=== PATIENT | male | born 1945 | race Caucasian/White ===

== ENCOUNTER → 2016-09-29 | Outpatient (REF) | payer MEDICARE, BC ==
[~2016-09-29] MED LIST: /ALLEGDTA; /ESCI10TA; /ESCI10TA PO; /ONDA4TA; /TAMS4CA; ACET50TA PO; ALLE24TA8 PO; ANTI25TA; ATROVENT0.02%; BABY81CH; CARV3.12 PO; CATA0.1T; CELE40TA PO; CHLO25TA3 PO; CLON0.1T PO; DEPA250T2; DIAZ5TAB; DIFL200T; DIOV80TA; LISI5TAB; LISI5TAB PO; METRCRM TOP; METROCREAM; MONT10TA2 PO; NAPR500T81; NASONEX; NOVOLOG100 MG/ML; OMEP20CA3 PO; PREDPOW10; PREV30TA; PROV90AE; SING10TA31; SODIUM CHLORIDE 0.9%; SYMB80AE; SYMB80INH INH; ULTR50TA PO; ULTRTA; VENTAER IN; VICO5TAB; XOPE1.252; [UNRECOGNIZED DRUG - OTHER]
== END ==
LOC: M SFHCCLAY 16:34
PROVIDERS: ATTEND Family Medicine
DX: K52.9 Noninfective gastroenteritis and colitis, unspecified (principal); N52.9 Male erectile dysfunction, unspecified; Z11.59 Encounter for screening for other viral diseases
CPT/HCPCS: 36415; 87507; G0463

== ENCOUNTER → 2016-09-30 | Outpatient (REF) | payer MEDICARE, BC ==
[2016-09-30 19:09] LABS: BASO % 0.5 % (0.0-1.0); EOS # 0.3 K/mm3 (0.0-0.50); EOS % 6.1 % (0.0-3.0); LARGE UNSTAINED CELL # 0.1 K/mm3 (0.0-0.4); LARGE UNSTAINED CELL % 2.2 % (0.0-4.0); LYMPH # 1.4 K/mm3 (1.5-4.5); LYMPH % 25.5 % (24.0-44.0); MEAN CORPUSCULAR HEMOGLOBIN 31.3 pg (27.0-33.0); MEAN CORPUSCULAR HGB CONC 33.5 g/dl (32.0-36.5); MEAN CORPUSCULAR VOLUME 93.5 fl (80.0-96.0); MONO # 0.4 K/mm3 (0.0-0.8); MONO % 7.8 % (0.0-5.0); PLATELET COUNT, AUTOMATED 241 k/mm3 (150-450); RED CELL DISTRIBUTION WIDTH 13.1 % (11.5-14.5); WHITE BLOOD COUNT 5.2 K/mm3 (4.0-10.0)
[2016-10-01 10:31] LABS: HEP C VIRUS AB SCREEN MEDICARE 0.2 INDEX (<0.8)
== END ==
LOC: M SFHCCLAY 10:20
PROVIDERS: ATTEND Family Medicine
DX: K52.9 Noninfective gastroenteritis and colitis, unspecified (principal); Z11.4 Encounter for screening for human immunodeficiency virus [HIV]; N52.9 Male erectile dysfunction, unspecified; Z11.59 Encounter for screening for other viral diseases; Z79.899 Other long term (current) drug therapy
CPT/HCPCS: 84403; 84443; 85025; 87899; G0472

== ENCOUNTER → 2016-10-19 | Outpatient (REF) | payer MEDICARE, BC ==
[2016-10-23 14:14] LABS: O+P EXAM Final report (.)
== END ==
LOC: M SFHCCLAY 11:37
PROVIDERS: ATTEND Family Medicine
DX: A09 Infectious gastroenteritis and colitis, unspecified (principal)

== ENCOUNTER → 2017-01-10 | Outpatient (REF) | payer MEDICARE, BC ==
[2017-01-10 12:32] LABS: ALBUMIN 3.4 GM/DL (3.2-5.2); BILIRUBIN,DIRECT 0.2 MG/DL (0.0-0.2); BILIRUBIN,TOTAL 0.3 MG/DL (0.2-1.0); TOTAL PROTEIN 6.8 GM/DL (6.4-8.2)
== END ==
LOC: M LABDRAWC 11:14
PROVIDERS: ATTEND Nurse Practitioner Family
DX: E78.2 Mixed hyperlipidemia (principal)

== ENCOUNTER → 2017-09-13 | Outpatient (REF) | payer MEDICARE, BC ==
[2017-09-13 23:42] LABS: ALBUMIN 3.6 GM/DL (3.2-5.2); ANION GAP 6 MEQ/L (8-16); BLOOD UREA NITROGEN 30 MG/DL (7-18); CALCIUM LEVEL 8.7 MG/DL (8.8-10.2); CARBON DIOXIDE LEVEL 29 MEQ/L (21-32); CHLORIDE LEVEL 107 MEQ/L (98-107); CREATININE FOR GFR 0.81 MG/DL (0.70-1.30); GLOMERULAR FILTRATION RATE > 60.0 (>42); GLUCOSE, FASTING 93 MG/DL (70-100); PHOSPHORUS LEVEL 2.7 MG/DL (2.5-4.9); POTASSIUM SERUM 3.6 MEQ/L (3.5-5.1); SODIUM LEVEL 142 MEQ/L (136-145)
== END ==
LOC: M LABDRAWC 18:26
DX: I11.9 Hypertensive heart disease without heart failure (principal)
CPT/HCPCS: 80069

== ENCOUNTER → 2017-10-05 | Outpatient (REF) | payer MEDICARE, BC | LOC: M LAB REF 16:45 | DX: R19.7 Diarrhea, unspecified (principal) | CPT/HCPCS: 82705 ==

== ENCOUNTER → 2017-10-20 | Outpatient (REF) | payer MEDICARE, BC ==
[2017-10-21 12:56] LABS: APPEARANCE, URINE TURBID (CLEAR); BACTERIA, URINE AUTO NEGATIVE (NEGATIVE); BILIRUBIN, URINE AUTO NEGATIVE (NEGATIVE); BLOOD, URINE BLOOD NEGATIVE (NEGATIVE); COLOR, URINE AMBER (YELLOW); GLUCOSE, URINE (UA) AUTO 1+ mg/dL (NEGATIVE); KETONE, URINE AUTO NEGATIVE (NEGATIVE); LEUKOCYTE ESTERASE, URINE AUTO TRACE (NEGATIVE); MUCUS, URINE SMALL (NEGATIVE); NITRITE, URINE AUTO NEGATIVE (NEGATIVE); PROTEIN, URINE AUTO NEGATIVE (NEGATIVE); RBC, URINE AUTO 0 /HPF (0-3); SPECIFIC GRAVITY URINE AUTO 1.029 (1.002-1.035); SQUAMOUS EPITHELIAL CELL UR AU 0 /HPF (0-6); UROBILINOGEN, URINE AUTO 0.2 mg/dL (0.0-2.0); WBC, URINE AUTO 0 /HPF (0-3)
== END ==
LOC: M SFHCCLAY 11:53
DX: R35.1 Nocturia (principal)
CPT/HCPCS: 81001

== ENCOUNTER → 2017-11-28 | Outpatient (CLI) | payer MEDICARE, BC | LOC: M CLY 14:47 | DX: M19.011 Primary osteoarthritis, right shoulder (principal); M75.81 Other shoulder lesions, right shoulder | CPT/HCPCS: 73030; G0463 ==

== ENCOUNTER → 2017-11-29 | Outpatient (REF) | payer MEDICARE, BC ==
[2017-11-29 12:11] LABS: BASO % 0.4 % (0.0-1.0); EOS # 0.4 10^3/uL (0.0-0.50); EOS % 6.6 % (0.0-3.0); HEMOGLOBIN 12.3 g/dl (13.5-17.5); IMMATURE GRANULOCYTE % 0.2 % (0-3.0); LYMPH # 1.6 10^3/uL (1.5-4.5); LYMPH % 27.7 % (24.0-44.0); MEAN CORPUSCULAR HGB CONC 33.2 g/dl (32.0-36.5); MEAN CORPUSCULAR VOLUME 93.2 fl (80.0-96.0); MONO # 0.8 10^3/uL (0.0-0.8); NEUTROPHILS # 2.9 10^3/uL (1.8-7.7); NEUTROPHILS % 51.1 % (36.0-66.0); PLATELET COUNT, AUTOMATED 192 10^3/uL (150-450); RED BLOOD COUNT 3.97 10^6/uL (4.30-6.10); RED CELL DISTRIBUTION WIDTH 13.2 % (11.5-14.5); WHITE BLOOD COUNT 5.6 10^3/uL (4.0-10.0)
[2017-11-29 12:31] LABS: ALBUMIN 3.3 GM/DL (3.2-5.2); ALBUMIN/GLOBULIN RATIO 0.94 (1.00-1.93); ALKALINE PHOSPHATASE 74 U/L (45-117); ALT/SGPT 29 U/L (12-78); ANION GAP 6 MEQ/L (8-16); AST/SGOT 22 U/L (7-37); BILIRUBIN,TOTAL 0.6 MG/DL (0.2-1.0); BLOOD UREA NITROGEN 26 MG/DL (7-18); CALCIUM LEVEL 8.6 MG/DL (8.8-10.2); CARBON DIOXIDE LEVEL 31 MEQ/L (21-32); CHLORIDE LEVEL 107 MEQ/L (98-107); CREATININE FOR GFR 0.84 MG/DL (0.70-1.30); GLOMERULAR FILTRATION RATE > 60.0 (>42); GLUCOSE, FASTING 95 MG/DL (70-100); POTASSIUM SERUM 3.7 MEQ/L (3.5-5.1); PSA SCREENING 0.36 NG/ML (< 4.0); SODIUM LEVEL 144 MEQ/L (136-145); TOTAL PROTEIN 6.8 GM/DL (6.4-8.2)
[2017-11-29 13:24] LABS: ESTIMATED AVERAGE GLUCOSE 108 MG/DL (60-110); HEMOGLOBIN A1c 5.4 %
== END ==
LOC: M SFHCCLAY 07:51
DX: Z12.5 Encounter for screening for malignant neoplasm of prostate (principal); K52.9 Noninfective gastroenteritis and colitis, unspecified
CPT/HCPCS: 84443

== ENCOUNTER → 2018-10-11 | Outpatient (REF) | payer MEDICARE, BC ==
[~2018-10-11] MED LIST changes: -/ESCI10TA; -/ESCI10TA PO; -/ONDA4TA; -/TAMS4CA; -ACET50TA PO; +FLOM0.4C39; +LEXA1TAB; +LEXA1TAB PO; +MAPA500T17 PO; +METR0.00 TOP; -METRCRM TOP; +ONDA-1
[2018-10-12 14:02] LABS: CLOSTRIDIUM DIFFICILE PCR NEGATIVE (NEGATIVE)
== END ==
LOC: M LAB REF 11:33
PROVIDERS: ATTEND Specialist
DX: R19.7 Diarrhea, unspecified (principal); K59.2 Neurogenic bowel, not elsewhere classified; R10.9 Unspecified abdominal pain; R14.1 Gas pain

== ENCOUNTER → 2018-10-17 | Outpatient (REF) | payer MEDICARE, BC ==
[2018-10-17 11:35] LABS: BASO # 0.1 10^3/uL (0.0-0.2); BASO % 0.8 % (0.0-1.0); EOS # 0.5 10^3/uL (0.0-0.50); EOS % 7.4 % (0.0-3.0); HEMATOCRIT 37.7 % (42.0-52.0); HEMOGLOBIN 12.7 g/dl (13.5-17.5); LYMPH # 1.9 10^3/uL (1.5-4.5); LYMPH % 30.7 % (24.0-44.0); MEAN CORPUSCULAR HEMOGLOBIN 32.1 pg (27.0-33.0); MEAN CORPUSCULAR HGB CONC 33.7 g/dl (32.0-36.5); MEAN CORPUSCULAR VOLUME 95.2 fl (80.0-96.0); MONO # 0.9 10^3/uL (0.0-0.8); MONO % 15.2 % (0.0-5.0); NEUTROPHILS # 2.8 10^3/uL (1.8-7.7); NEUTROPHILS % 45.6 % (36.0-66.0); PLATELET COUNT, AUTOMATED 205 10^3/uL (150-450); RED BLOOD COUNT 3.96 10^6/uL (4.30-6.10); WHITE BLOOD COUNT 6.2 10^3/uL (4.0-10.0)
[2018-10-17 11:45] LABS: ALT/SGPT 27 U/L (12-78); BILIRUBIN,TOTAL 0.3 MG/DL (0.2-1.0); BLOOD UREA NITROGEN 26 MG/DL (7-18); CALCIUM LEVEL 8.7 MG/DL (8.8-10.2); CARBON DIOXIDE LEVEL 33 MEQ/L (21-32); CHLORIDE LEVEL 102 MEQ/L (98-107); CHOLESTEROL LEVEL 135 MG/DL (<200); CREATININE FOR GFR 0.88 MG/DL (0.70-1.30); GLOMERULAR FILTRATION RATE > 60.0 (>42); GLUCOSE, FASTING 90 MG/DL (70-100); POTASSIUM SERUM 3.6 MEQ/L (3.5-5.1); SODIUM LEVEL 140 MEQ/L (136-145); TRIGLYCERIDES LEVEL 76 MG/DL (<150)
[2018-10-17 11:46] LABS: ALBUMIN 3.5 GM/DL (3.2-5.2); CHOLESTEROL RISK RATIO 2.109 (<5); HDL CHOLESTEROL 64 MG/DL (>40); LDL CHOLESTEROL 56 MG/DL (<100); NON-HDL-C 71 MG/DL; TOTAL PROTEIN 7.1 GM/DL (6.4-8.2)
== END ==
LOC: M LABDRAWC 11:12
PROVIDERS: ATTEND Physician Assistant
DX: I11.9 Hypertensive heart disease without heart failure (principal)

== ENCOUNTER → 2019-09-12 | Outpatient (REF) | payer MEDICARE, BC ==
[2019-09-12 16:46] LABS: ALBUMIN 3.7 GM/DL (3.2-5.2); ALT/SGPT 28 U/L (12-78); BILIRUBIN,TOTAL 0.7 MG/DL (0.2-1.0); BLOOD UREA NITROGEN 22 MG/DL (7-18); CARBON DIOXIDE LEVEL 30 MEQ/L (21-32); CHLORIDE LEVEL 105 MEQ/L (98-107); CHOLESTEROL LEVEL 151 MG/DL (<200); CHOLESTEROL RISK RATIO 1.911 (<5); CREATININE FOR GFR 0.96 MG/DL (0.70-1.30); GLOMERULAR FILTRATION RATE > 60.0 (>42); GLUCOSE, FASTING 83 MG/DL (70-100); HDL CHOLESTEROL 79 MG/DL (>40); LDL CHOLESTEROL 61 MG/DL (<100); MAGNESIUM LEVEL 2.1 MG/DL (1.8-2.4); NON-HDL-C 72 MG/DL; POTASSIUM SERUM 3.5 MEQ/L (3.5-5.1); SODIUM LEVEL 141 MEQ/L (136-145); TOTAL PROTEIN 7.5 GM/DL (6.4-8.2); TRIGLYCERIDES LEVEL 54 MG/DL (<150)
[2019-09-12 16:54] LABS: TOTAL 25(OH) VITAMIN D 38.2 NG/ML (30.0-100.0)
== END ==
LOC: M SFHCCLAY 11:24
PROVIDERS: ATTEND Family Medicine
DX: I10 Essential (primary) hypertension (principal); E78.00 Pure hypercholesterolemia, unspecified; R25.2 Cramp and spasm; Z12.5 Encounter for screening for malignant neoplasm of prostate; Z79.899 Other long term (current) drug therapy
CPT/HCPCS: 36415; 80053; 80061; 82306; 83735; G0103; G0463

== ENCOUNTER → 2019-10-26 | Outpatient (REF) | payer MEDICARE, BC ==
[2019-10-26 12:11] LABS: BLOOD UREA NITROGEN 21 MG/DL (7-18); CALCIUM LEVEL 8.9 MG/DL (8.8-10.2); CARBON DIOXIDE LEVEL 31 MEQ/L (21-32); CHLORIDE LEVEL 103 MEQ/L (98-107); CREATININE FOR GFR 0.77 MG/DL (0.70-1.30); GLOMERULAR FILTRATION RATE > 60.0 (>42); GLUCOSE, FASTING 85 MG/DL (70-100); POTASSIUM SERUM 3.5 MEQ/L (3.5-5.1); SODIUM LEVEL 139 MEQ/L (136-145)
== END ==
LOC: M LABDRAWC 11:22
PROVIDERS: ATTEND Physician Assistant
DX: I11.9 Hypertensive heart disease without heart failure (principal)

== ENCOUNTER → 2020-02-27 | Outpatient (REF) | payer MEDICARE, BC ==
[2020-02-28 11:51] LABS: BLOOD UREA NITROGEN 27 MG/DL (7-18); CALCIUM LEVEL 9.2 MG/DL (8.8-10.2); CARBON DIOXIDE LEVEL 31 MEQ/L (21-32); CHLORIDE LEVEL 104 MEQ/L (98-107); CREATININE FOR GFR 1.07 MG/DL (0.70-1.30); GLOMERULAR FILTRATION RATE > 60.0 (>42); GLUCOSE, FASTING 59 MG/DL (70-100); POTASSIUM SERUM 4.4 MEQ/L (3.5-5.1); SODIUM LEVEL 141 MEQ/L (136-145)
== END ==
LOC: M SFHCCLAY 14:41
PROVIDERS: ATTEND Family Medicine
DX: I11.9 Hypertensive heart disease without heart failure (principal); R25.2 Cramp and spasm; Z23 Encounter for immunization
CPT/HCPCS: 80048; 90682; G0008; G0463

== ENCOUNTER → 2020-09-04 | Outpatient (REF) | payer MEDICARE, BC ==
[2020-09-04 13:16] LABS: BLOOD UREA NITROGEN 20 MG/DL (7-18); CALCIUM LEVEL 9.2 MG/DL (8.8-10.2); CARBON DIOXIDE LEVEL 33 MEQ/L (21-32); CHLORIDE LEVEL 104 MEQ/L (98-107); CHOLESTEROL LEVEL 152 MG/DL (<200); CHOLESTEROL RISK RATIO 1.948 (<5); CREATININE FOR GFR 0.79 MG/DL (0.70-1.30); GLOMERULAR FILTRATION RATE > 60.0 (>42); GLUCOSE, FASTING 90 MG/DL (70-100); HDL CHOLESTEROL 78 MG/DL (>40); LDL CHOLESTEROL 65 MG/DL (<100); NON-HDL-C 74 MG/DL; POTASSIUM SERUM 3.7 MEQ/L (3.5-5.1); SODIUM LEVEL 141 MEQ/L (136-145); TRIGLYCERIDES LEVEL 44 MG/DL (<150)
== END ==
LOC: M SFHCCLAY 09:27
PROVIDERS: ATTEND Family Medicine
DX: E78.00 Pure hypercholesterolemia, unspecified (principal); I11.9 Hypertensive heart disease without heart failure; E16.2 Hypoglycemia, unspecified

== ENCOUNTER → 2020-10-28 | Outpatient (REF) | payer MEDICARE, BC ==
[2020-10-28 16:49] LABS: BASO % 0.5 % (0.0-1.0); EOS # 0.3 10^3/uL (0.0-0.5); EOS % 3.7 % (0.0-3.0); HEMOGLOBIN 12.4 g/dl (13.5-17.5); LYMPH # 1.8 10^3/uL (1.5-5.0); LYMPH % 21.3 % (24.0-44.0); MEAN CORPUSCULAR HEMOGLOBIN 30.4 pg (27.0-33.0); MEAN CORPUSCULAR HGB CONC 32.6 g/dl (32.0-36.5); MEAN CORPUSCULAR VOLUME 93.1 fl (80.0-96.0); MONO % 11.6 % (2.0-8.0); NEUTROPHILS # 5.1 10^3/uL (1.5-8.5); NEUTROPHILS % 62.5 % (36.0-66.0); PLATELET COUNT, AUTOMATED 211 10^3/uL (150-450); RED BLOOD COUNT 4.08 10^6/uL (4.30-6.10); WHITE BLOOD COUNT 8.2 10^3/uL (4.0-10.0)
[2020-10-28 16:56] LABS: BLOOD UREA NITROGEN 25 MG/DL (7-18); CALCIUM LEVEL 9.1 MG/DL (8.8-10.2); CARBON DIOXIDE LEVEL 30 MEQ/L (21-32); CHLORIDE LEVEL 105 MEQ/L (98-107); CREATININE FOR GFR 0.88 MG/DL (0.70-1.30); GLOMERULAR FILTRATION RATE > 60.0 (>42); GLUCOSE, FASTING 94 MG/DL (70-100); POTASSIUM SERUM 3.8 MEQ/L (3.5-5.1); SODIUM LEVEL 142 MEQ/L (136-145)
== END ==
LOC: M LABDRAWC 15:53
PROVIDERS: ATTEND Physician Assistant
DX: R53.83 Other fatigue (principal)

== ENCOUNTER 2020-12-10 17:38 | Outpatient (CLI) | payer MEDICARE, BC ==
[~2020-12-10] VITALS: Ht 154.9 cm; Wt 68.5 kg
[~2020-12-10 17:38] MED LIST changes: +ALBUTEROL 90 MCG/ACT 8GM HFA INHALER INH PRN; +ALBUTEROL SULFATE 2.5 MG/0.5 ML INH NEB SOLN INH PRN; +EPINEPHrine INJ 1 MG/ML 1ML AMP IM PRN; +NS 1,000 ML IV SCH; +diphenhydrAMINE 50MG/ML VIAL (J1200) IV PRN; +methylPREDNISolone 125MG 2ML VIAL IV PRN
[2020-12-10 18:27] VITALS: BP 126/74
[2020-12-10 19:39] VITALS: BP 107/82
[2020-12-10] MEDS ORDERED: CASIRIVIMAB/IMDEVIMAB 1,200 MG in NS 250 ML IV ONE (20:00)
[2020-12-10 20:05] VITALS: BP 106/60
[2020-12-10 21:27] VITALS: BP 105/59
== END 2020-12-10 21:27 | disposition home or self-care (01) ==
LOC: M OPCLI4 17:38 → M 4MAIN 17:43 → M OPCLI4 21:27
PROVIDERS: ATTEND Physician Assistant
DX: U07.1 COVID-19 (principal)

== ENCOUNTER → 2020-12-10 | Outpatient (CLI) | payer MEDICARE, BC ==
--- NOTE | 2020-12-10 15:24 | REP ---
INDICATION: FEVER, COUGH AND WEAKNESS COMPARISON: 02/10/2017 TECHNIQUE: PA and lateral. FINDINGS: Mediastinum demonstrates normal cardiac silhouette and stable severe scoliosis. Lung jackson demonstrate chronic changes similar to prior examination. No obvious acute consolidation, effusion, or pneumothorax. IMPRESSION: Chronic stable changes. No obvious acute consolidation or effusion. <Electronically signed by Jerod Thomas > 12/10/20 [id number]
== END ==
LOC: M CLY 15:06
PROVIDERS: ATTEND Physician Assistant
DX: R50.9 Fever, unspecified (principal)
CPT/HCPCS: 71046; 87426; G0463; M0243

== ENCOUNTER → 2021-03-23 | Outpatient (CLI) | payer MEDICARE, BC ==
[~2021-03-23] MED LIST changes: -ALBUTEROL 90 MCG/ACT 8GM HFA INHALER INH PRN; -ALBUTEROL SULFATE 2.5 MG/0.5 ML INH NEB SOLN INH PRN; -EPINEPHrine INJ 1 MG/ML 1ML AMP IM PRN; -NS 1,000 ML IV SCH; -diphenhydrAMINE 50MG/ML VIAL (J1200) IV PRN; -methylPREDNISolone 125MG 2ML VIAL IV PRN
--- NOTE | 2021-03-23 09:51 | REP ---
INDICATION: M25.512 LEFT SHOULDER PAIN. COMPARISON: None. TECHNIQUE: Three images of the left shoulder were obtained. FINDINGS: There is mild arthritis of the glenohumeral joint. There is mild arthritis of the acromioclavicular joint. There is no evidence of fracture or dislocation. The periarticular soft tissues are unremarkable. The visualized portion of the left lung is unremarkable. IMPRESSION: 1. 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 2. No evidence of fracture or dislocation. <Electronically signed by Jose Pineda > 03/23/21 [id number]
--- NOTE | 2021-03-23 09:52 | REP ---
INDICATION: M54.50 LEFT LOW BACK PAIN. COMPARISON: 03/31/2011. TECHNIQUE: Three AP and lateral views lumbosacral spine. FINDINGS: There is no radiographic evidence of acute fracture. There is significant left lumbar scoliosis. This is similar to the prior exam. Diffuse spurring of the vertebral bodies has mildly increased. There is diffuse sclerosis and spurring at the posterior facet joints again noted. IMPRESSION: Left lumbar scoliosis with no radiographic evidence of acute fracture. Mild progression of diffuse degenerative changes. <Electronically signed by Luan Simpson > 03/23/21 0919
== END ==
LOC: M CLY 08:57
PROVIDERS: ATTEND Family Medicine
DX: M19.012 Primary osteoarthritis, left shoulder (principal); M41.26 Other idiopathic scoliosis, lumbar region; M54.50 Low back pain, unspecified; M25.512 Pain in left shoulder
CPT/HCPCS: 72100; 73030; G0463

== ENCOUNTER → 2021-05-29 | Outpatient (CLI) | payer MEDICARE, BC | LOC: M CLY 08:42 | PROVIDERS: ATTEND Physician Assistant | DX: R05.9 Cough, unspecified (principal) ==

== ENCOUNTER → 2021-08-13 | Outpatient (CLI) | payer MEDICARE, BC | LOC: M RAD 10:45 | PROVIDERS: ATTEND Family Medicine | DX: R05.9 Cough, unspecified (principal) ==

== ENCOUNTER → 2021-09-22 | Outpatient (CLI) | payer MEDICARE, BC | LOC: M CLY 08:56 | PROVIDERS: ATTEND Family Medicine | DX: R05.3 Chronic cough (principal); R07.81 Pleurodynia ==

== ENCOUNTER → 2021-10-13 | Outpatient (CLI) | payer MEDICARE, BC | LOC: M PLAIMG 12:56 | PROVIDERS: ATTEND Pain Medicine Interventional Pain Medicine | DX: M48.061 Spinal stenosis, lumbar region without neurogenic claudication (principal) ==

== ENCOUNTER → 2021-10-21 | Outpatient (REF) | payer MEDICARE, BC ==
[2021-10-21 16:50] LABS: BLOOD UREA NITROGEN 23 MG/DL (7-18); CARBON DIOXIDE LEVEL 33 MEQ/L (21-32); CHLORIDE LEVEL 102 MEQ/L (98-107); CHOLESTEROL LEVEL 148 MG/DL (<200); CHOLESTEROL RISK RATIO 1.973 (<5); CREATININE FOR GFR 0.83 MG/DL (0.70-1.30); GLOMERULAR FILTRATION RATE > 60.0 (>42); GLUCOSE, FASTING 91 MG/DL (70-100); HDL CHOLESTEROL 75 MG/DL (>40); LDL CHOLESTEROL 65 MG/DL (<100); NON-HDL-C 73 MG/DL; POTASSIUM SERUM 3.8 MEQ/L (3.5-5.1); SODIUM LEVEL 137 MEQ/L (136-145); TRIGLYCERIDES LEVEL 39 MG/DL (<150)
== END ==
LOC: M SFHCCLAY 11:20
PROVIDERS: ATTEND Family Medicine
DX: I11.9 Hypertensive heart disease without heart failure (principal); E78.00 Pure hypercholesterolemia, unspecified

== ENCOUNTER → 2021-11-04 | Outpatient (REF) | payer MEDICARE, BC | LOC: M LAB REF 17:09 | PROVIDERS: ATTEND Internal Medicine Pulmonary Disease | DX: R05.9 Cough, unspecified (principal) ==

== ENCOUNTER → 2021-11-18 | Outpatient (REF) | payer MEDICARE, BC | LOC: M SFHCCLAY 11:42 | PROVIDERS: ATTEND Nurse Practitioner Family | DX: Z12.5 Encounter for screening for malignant neoplasm of prostate (principal) ==

== ENCOUNTER → 2021-12-15 | Outpatient (REF) | payer MEDICARE, BC | LOC: M SFHCCLAY 15:52 | PROVIDERS: ATTEND Nurse Practitioner Family | DX: R05.3 Chronic cough (principal) ==

== ENCOUNTER → 2022-01-12 | Outpatient (REF) | payer MEDICARE, BC ==
[2022-01-12 17:52] LABS: HEMATOCRIT 35.6 % (42.0-52.0); HEMOGLOBIN 11.8 g/dl (13.5-17.5); MEAN CORPUSCULAR HEMOGLOBIN 30.9 pg (27.0-33.0); MEAN CORPUSCULAR HGB CONC 33.1 g/dl (32.0-36.5); MEAN CORPUSCULAR VOLUME 93.2 fl (80.0-96.0); PLATELET COUNT, AUTOMATED 211 10^3/uL (150-450); RED BLOOD COUNT 3.82 10^6/uL (4.30-6.10); WHITE BLOOD COUNT 7.9 10^3/uL (4.0-10.0)
[2022-01-12 17:58] LABS: ALBUMIN 3.3 GM/DL (3.2-5.2); ALT/SGPT 40 U/L (12-78); BILIRUBIN,TOTAL 0.7 MG/DL (0.2-1.0); BLOOD UREA NITROGEN 28 MG/DL (7-18); CALCIUM LEVEL 8.8 MG/DL (8.8-10.2); CARBON DIOXIDE LEVEL 30 MEQ/L (21-32); CHLORIDE LEVEL 101 MEQ/L (98-107); CHOLESTEROL LEVEL 161 MG/DL (<200); CHOLESTEROL RISK RATIO 1.987 (<5); CREATININE FOR GFR 0.97 MG/DL (0.70-1.30); GLOMERULAR FILTRATION RATE > 60.0 (>42); GLUCOSE, FASTING 82 MG/DL (70-100); HDL CHOLESTEROL 81 MG/DL (>40); LDL CHOLESTEROL 65 MG/DL (<100); NON-HDL-C 80 MG/DL; POTASSIUM SERUM 3.4 MEQ/L (3.5-5.1); SODIUM LEVEL 137 MEQ/L (136-145); TOTAL PROTEIN 6.5 GM/DL (6.4-8.2); TRIGLYCERIDES LEVEL 73 MG/DL (<150)
== END ==
LOC: M SFHCCLAY 13:46
PROVIDERS: ATTEND Nurse Practitioner Family
DX: I82.441 Acute embolism and thrombosis of right tibial vein (principal); I11.9 Hypertensive heart disease without heart failure

== ENCOUNTER → 2022-01-21 | Outpatient (REF) | payer MEDICARE, BC | LOC: M SFHCCLAY 14:45 | PROVIDERS: ATTEND Physician Assistant | DX: Z53.9 Procedure and treatment not carried out, unspecified reason (principal) ==

== ENCOUNTER → 2022-01-25 | Outpatient (REF) | payer MEDICARE, BC ==
[2022-01-25 12:51] LABS: BASO % 0.4 % (0.0-1.0); EOS % 0.1 % (0.0-3.0); HEMATOCRIT 36.5 % (42.0-52.0); HEMOGLOBIN 12.2 g/dl (13.5-17.5); LYMPH # 1.6 10^3/uL (1.5-5.0); LYMPH % 19.6 % (24.0-44.0); MEAN CORPUSCULAR HEMOGLOBIN 30.7 pg (27.0-33.0); MEAN CORPUSCULAR HGB CONC 33.4 g/dl (32.0-36.5); MEAN CORPUSCULAR VOLUME 91.7 fl (80.0-96.0); MONO # 0.9 10^3/uL (0.0-0.8); MONO % 11.4 % (2.0-8.0); NEUTROPHILS # 5.3 10^3/uL (1.5-8.5); PLATELET COUNT, AUTOMATED 337 10^3/uL (150-450); RED BLOOD COUNT 3.98 10^6/uL (4.30-6.10); WHITE BLOOD COUNT 7.9 10^3/uL (4.0-10.0)
[2022-01-25 13:45] LABS: ALBUMIN 3.3 GM/DL (3.2-5.2); ALT/SGPT 28 U/L (12-78); BILIRUBIN,TOTAL 0.3 MG/DL (0.2-1.0); BLOOD UREA NITROGEN 24 MG/DL (7-18); CALCIUM LEVEL 9.4 MG/DL (8.8-10.2); CARBON DIOXIDE LEVEL 33 MEQ/L (21-32); CHLORIDE LEVEL 102 MEQ/L (98-107); CREATININE FOR GFR 0.87 MG/DL (0.70-1.30); GLOMERULAR FILTRATION RATE > 60.0 (>42); GLUCOSE, FASTING 85 MG/DL (70-100); POTASSIUM SERUM 3.5 MEQ/L (3.5-5.1); SODIUM LEVEL 139 MEQ/L (136-145); TOTAL PROTEIN 6.9 GM/DL (6.4-8.2)
[2022-01-25 13:51] LABS: ERYTHROCYTE SEDIMENTATION RATE 34 mm/hr (0-20)
[2022-01-29 23:07] LABS: ACETYLCHOLINE RCPTOR BINDING A < 0.03 nmol/L (0.00-0.24)
[2022-02-03 10:58] LABS: VOLTAGE-GATED POTASSIUM CHANNE 5 pmol/L (0-31)
== END ==
LOC: M SFHCCLAY 07:36
PROVIDERS: ATTEND Physician Assistant
DX: R26.9 Unspecified abnormalities of gait and mobility (principal); J20.9 Acute bronchitis, unspecified

== ENCOUNTER → 2022-02-15 | Outpatient (CLI) | payer MEDICARE, BC | LOC: M PLAIMG 13:20 | PROVIDERS: ATTEND Physician Assistant | DX: R91.8 Other nonspecific abnormal finding of lung field (principal); K44.9 Diaphragmatic hernia without obstruction or gangrene ==

== ENCOUNTER → 2022-03-04 | Outpatient (CLI) | payer MEDICARE, BC ==
[2022-03-04 18:26] LABS: BASO % 0.5 % (0.0-1.0); EOS # 0.5 10^3/uL (0.0-0.5); EOS % 5.3 % (0.0-3.0); HEMATOCRIT 37.8 % (42.0-52.0); HEMOGLOBIN 12.1 g/dl (13.5-17.5); LYMPH # 1.3 10^3/uL (1.5-5.0); LYMPH % 14.8 % (24.0-44.0); MEAN CORPUSCULAR HEMOGLOBIN 30.6 pg (27.0-33.0); MEAN CORPUSCULAR VOLUME 95.7 fl (80.0-96.0); MONO # 0.9 10^3/uL (0.0-0.8); NEUTROPHILS # 6.1 10^3/uL (1.5-8.5); NEUTROPHILS % 68.5 % (36.0-66.0); PLATELET COUNT, AUTOMATED 245 10^3/uL (150-450); RED BLOOD COUNT 3.95 10^6/uL (4.30-6.10); WHITE BLOOD COUNT 8.8 10^3/uL (4.0-10.0)
[2022-03-04 19:28] LABS: ALBUMIN 3.7 G/DL (3.2-5.2); ALT/SGPT 25 U/L (7.0-40); BILIRUBIN,TOTAL 0.7 MG/DL (0.3-1.2); BLOOD UREA NITROGEN 26 MG/DL (9-23); CALCIUM LEVEL 9.1 MG/DL (8.3-10.6); CARBON DIOXIDE LEVEL 32 MMOL/L (20-31); CHLORIDE LEVEL 101 MMOL/L (98-107); CREATININE FOR GFR 0.85 MG/DL (0.70-1.30); FREE T4 0.93 NG/DL (0.89-1.76); GLOMERULAR FILTRATION RATE > 60.0 (>42); GLUCOSE, FASTING 95 MG/DL (74-106); POTASSIUM SERUM 3.6 MMOL/L (3.5-5.1); RHEUMATOID FACTOR QUANT < 3.5 IU/ML (<14); SODIUM LEVEL 141 MMOL/L (136-145); TOTAL PROTEIN 6.8 G/DL (5.7-8.2); VITAMIN B12 LEVEL 621 PG/ML (211-911)
[2022-03-04 19:38] LABS: FOLATE > 24.00 NG/ML (>5.4)
[2022-03-04 20:14] LABS: ERYTHROCYTE SEDIMENTATION RATE 20 mm/hr (0-20)
== END ==
LOC: M PLALAB 11:48
PROVIDERS: ATTEND Psychiatry & Neurology Neurology
DX: E07.9 Disorder of thyroid, unspecified (principal); E53.8 Deficiency of other specified B group vitamins; Z11.3 Encounter for screening for infections with a predominantly sexual mode of transmission

== ENCOUNTER → 2022-05-11 | Outpatient (CLI) | payer MEDICARE, BC ==
[2022-05-11 13:12] LABS: HEMATOCRIT 37.6 % (42.0-52.0); HEMOGLOBIN 12.4 g/dl (13.5-17.5); MEAN CORPUSCULAR HEMOGLOBIN 30.9 pg (27.0-33.0); MEAN CORPUSCULAR VOLUME 93.8 fl (80.0-96.0); PLATELET COUNT, AUTOMATED 236 10^3/uL (150-450); RED BLOOD COUNT 4.01 10^6/uL (4.30-6.10); WHITE BLOOD COUNT 9.4 10^3/uL (4.0-10.0)
[2022-05-11 13:48] LABS: THYROID STIMULATING HORMONE 1.787 uIU/ML (0.55-4.78)
[2022-05-11 13:49] LABS: FREE T4 1.19 NG/DL (0.89-1.76)
[2022-05-11 13:50] LABS: ALBUMIN 3.7 G/DL (3.2-5.2); ALKALINE PHOSPHATASE 93 U/L (46-116); ALT/SGPT 24 U/L (7.0-40); AST/SGOT 23 U/L (<34); BILIRUBIN,TOTAL 0.5 MG/DL (0.3-1.2); BLOOD UREA NITROGEN 26 MG/DL (9-23); CALCIUM LEVEL 9.3 MG/DL (8.3-10.6); CARBON DIOXIDE LEVEL 31 MMOL/L (20-31); CHLORIDE LEVEL 102 MMOL/L (98-107); CREATININE FOR GFR 0.91 MG/DL (0.70-1.30); GLOMERULAR FILTRATION RATE > 60.0 (>42); GLUCOSE, FASTING 100 MG/DL (74-106); POTASSIUM SERUM 3.6 MMOL/L (3.5-5.1); SODIUM LEVEL 140 MMOL/L (136-145); TOTAL PROTEIN 6.8 G/DL (5.7-8.2)
== END ==
LOC: M PLALAB 10:37
PROVIDERS: ATTEND Internal Medicine Hematology
DX: I82.531 Chronic embolism and thrombosis of right popliteal vein (principal); G11.2 Late-onset cerebellar ataxia; R05.9 Cough, unspecified; G95.20 Unspecified cord compression; I82.411 Acute embolism and thrombosis of right femoral vein; E03.9 Hypothyroidism, unspecified

== ENCOUNTER → 2022-06-09 | Outpatient (REF) | payer MEDICARE, BC | LOC: M SFHCPLAZ 09:52 | PROVIDERS: ATTEND Internal Medicine Hematology | DX: I82.531 Chronic embolism and thrombosis of right popliteal vein (principal) ==

== ENCOUNTER → 2022-08-13 | Outpatient (CLI) | payer MEDICARE, BC | LOC: M CLY 10:27 | PROVIDERS: ATTEND Physician Assistant | DX: J84.9 Interstitial pulmonary disease, unspecified (principal); R07.81 Pleurodynia; R10.11 Right upper quadrant pain ==

== ENCOUNTER → 2022-08-13 | Outpatient (REF) | payer MEDICARE, BC ==
[2022-08-13 17:22] LABS: INR 1.03; PROTHROMBIN TIME 13.7 SECONDS (12.5-14.5)
[2022-08-13 17:58] LABS: BASO % 0.3 % (0.0-1.0); EOS # 0.3 10^3/uL (0.0-0.5); EOS % 2.9 % (0.0-3.0); HEMATOCRIT 36.8 % (42.0-52.0); LYMPH # 1.5 10^3/uL (1.5-5.0); LYMPH % 16.2 % (24.0-44.0); MEAN CORPUSCULAR HEMOGLOBIN 30.4 pg (27.0-33.0); MEAN CORPUSCULAR HGB CONC 32.6 g/dl (32.0-36.5); MEAN CORPUSCULAR VOLUME 93.2 fl (80.0-96.0); MONO # 1.1 10^3/uL (0.0-0.8); MONO % 11.6 % (2.0-8.0); NEUTROPHILS # 6.5 10^3/uL (1.5-8.5); NEUTROPHILS % 68.6 % (36.0-66.0); PLATELET COUNT, AUTOMATED 258 10^3/uL (150-450); RED BLOOD COUNT 3.95 10^6/uL (4.30-6.10); WHITE BLOOD COUNT 9.5 10^3/uL (4.0-10.0)
[2022-08-13 18:03] LABS: LIPASE 21 U/L (12-53)
[2022-08-13 18:06] LABS: ALBUMIN 3.6 G/DL (3.2-5.2); ALKALINE PHOSPHATASE 103 U/L (46-116); ALT/SGPT 28 U/L (7.0-40); AMYLASE 105 U/L (30-118); AST/SGOT 20 U/L (<34); BILIRUBIN,TOTAL 0.5 MG/DL (0.3-1.2); BLOOD UREA NITROGEN 25 MG/DL (9-23); CALCIUM LEVEL 8.8 MG/DL (8.3-10.6); CARBON DIOXIDE LEVEL 30 MMOL/L (20-31); CHLORIDE LEVEL 104 MMOL/L (98-107); CREATININE FOR GFR 0.98 MG/DL (0.70-1.30); GLOMERULAR FILTRATION RATE > 60.0 (>42); GLUCOSE, FASTING 99 MG/DL (74-106); POTASSIUM SERUM 3.8 MMOL/L (3.5-5.1); SODIUM LEVEL 140 MMOL/L (136-145); TOTAL PROTEIN 6.8 G/DL (5.7-8.2)
== END ==
LOC: M SFHCCLAY 10:56
PROVIDERS: ATTEND Physician Assistant
DX: R10.11 Right upper quadrant pain (principal); R23.3 Spontaneous ecchymoses

== ENCOUNTER → 2022-11-23 | Outpatient (REF) | payer MEDICARE, BC | LOC: M SFHCCLAY 11:34 | PROVIDERS: ATTEND Nurse Practitioner Family | DX: R35.0 Frequency of micturition (principal); R25.2 Cramp and spasm | CPT/HCPCS: 83735; G0103 ==

== ENCOUNTER → 2023-02-25 | Outpatient (REF) | payer MEDICARE, BC ==
[2023-02-25 19:06] LABS: BLOOD UREA NITROGEN 28 MG/DL (9-23); CALCIUM LEVEL 9.2 MG/DL (8.3-10.6); CARBON DIOXIDE LEVEL 31 MMOL/L (20-31); CHLORIDE LEVEL 100 MMOL/L (98-107); CREATININE FOR GFR 0.99 MG/DL (0.70-1.30); GLOMERULAR FILTRATION RATE > 60.0 (>42); GLUCOSE, FASTING 97 MG/DL (74-106); POTASSIUM SERUM 3.8 MMOL/L (3.5-5.1); SODIUM LEVEL 140 MMOL/L (136-145)
== END ==
LOC: M LABDRAWC 16:58
PROVIDERS: ATTEND Ophthalmology
DX: H04.223 Epiphora due to insufficient drainage, bilateral (principal)

== ENCOUNTER → 2023-03-01 | Outpatient (REF) | payer MEDICARE, BC ==
[2023-03-01 17:31] LABS: BASO % 0.5 % (0.0-1.0); EOS # 0.3 10^3/uL (0.0-0.5); EOS % 3.9 % (0.0-3.0); HEMATOCRIT 38.3 % (42.0-52.0); HEMOGLOBIN 12.7 g/dl (13.5-17.5); LYMPH # 1.4 10^3/uL (1.5-5.0); LYMPH % 15.9 % (24.0-44.0); MEAN CORPUSCULAR HEMOGLOBIN 30.8 pg (27.0-33.0); MEAN CORPUSCULAR HGB CONC 33.2 g/dl (32.0-36.5); MONO # 1.1 10^3/uL (0.0-0.8); MONO % 12.4 % (2.0-8.0); NEUTROPHILS # 5.9 10^3/uL (1.5-8.5); NEUTROPHILS % 66.8 % (36.0-66.0); PLATELET COUNT, AUTOMATED 229 10^3/uL (150-450); RED BLOOD COUNT 4.12 10^6/uL (4.30-6.10); WHITE BLOOD COUNT 8.8 10^3/uL (4.0-10.0)
[2023-03-01 18:20] LABS: ALBUMIN 3.7 G/DL (3.2-5.2); ALKALINE PHOSPHATASE 102 U/L (46-116); ALT/SGPT 29 U/L (7.0-40); AST/SGOT 23 U/L (<34); BILIRUBIN,TOTAL 0.7 MG/DL (0.3-1.2); BLOOD UREA NITROGEN 29 MG/DL (9-23); CALCIUM LEVEL 9.4 MG/DL (8.3-10.6); CARBON DIOXIDE LEVEL 32 MMOL/L (20-31); CHLORIDE LEVEL 101 MMOL/L (98-107); CHOLESTEROL LEVEL 151 MG/DL (<200); CHOLESTEROL RISK RATIO 2.15 (<5); CREATININE FOR GFR 0.89 MG/DL (0.70-1.30); FREE T4 1.22 NG/DL (0.89-1.76); GLOMERULAR FILTRATION RATE > 60.0 (>42); GLUCOSE, FASTING 100 MG/DL (74-106); HDL CHOLESTEROL 70.2 MG/DL (>40); LDL CHOLESTEROL 68.8 MG/DL (<100); NON-HDL-C 80.8 MG/DL; POTASSIUM SERUM 3.8 MMOL/L (3.5-5.1); SODIUM LEVEL 140 MMOL/L (136-145); THYROID STIMULATING HORMONE 2.332 uIU/ML (0.55-4.78); TOTAL PROTEIN 7.1 G/DL (5.7-8.2); TRIGLYCERIDES LEVEL 60 MG/DL (<150)
== END ==
LOC: M SFHCCLAY 11:19
PROVIDERS: ATTEND Nurse Practitioner Family
DX: J84.10 Pulmonary fibrosis, unspecified (principal); E03.9 Hypothyroidism, unspecified; R26.89 Other abnormalities of gait and mobility; G95.20 Unspecified cord compression; I11.9 Hypertensive heart disease without heart failure; E78.00 Pure hypercholesterolemia, unspecified; K21.9 Gastro-esophageal reflux disease without esophagitis; J45.20 Mild intermittent asthma, uncomplicated

== ENCOUNTER → 2023-05-19 | Outpatient (REF) | payer MEDICARE, BC | LOC: M LAB REF 17:09 | PROVIDERS: ATTEND Internal Medicine Pulmonary Disease | DX: J47.9 Bronchiectasis, uncomplicated (principal) ==

== ENCOUNTER → 2023-06-02 | Outpatient (REF) | payer MEDICARE, BC ==
[2023-06-02 13:09] LABS: BASO % 0.3 % (0.0-1.0); EOS # 0.4 10^3/uL (0.0-0.5); EOS % 4.9 % (0.0-3.0); HEMATOCRIT 37.8 % (42.0-52.0); HEMOGLOBIN 12.6 g/dl (13.5-17.5); LYMPH # 1.8 10^3/uL (1.5-5.0); LYMPH % 20.6 % (24.0-44.0); MEAN CORPUSCULAR HEMOGLOBIN 31.1 pg (27.0-33.0); MEAN CORPUSCULAR HGB CONC 33.3 g/dl (32.0-36.5); MEAN CORPUSCULAR VOLUME 93.3 fl (80.0-96.0); MONO # 0.8 10^3/uL (0.0-0.8); MONO % 9.6 % (2.0-8.0); NEUTROPHILS # 5.6 10^3/uL (1.5-8.5); NEUTROPHILS % 64.5 % (36.0-66.0); PLATELET COUNT, AUTOMATED 268 10^3/uL (150-450); RED BLOOD COUNT 4.05 10^6/uL (4.30-6.10); WHITE BLOOD COUNT 8.6 10^3/uL (4.0-10.0)
[2023-06-02 13:17] LABS: HEMOGLOBIN A1c 5.4 % (4.0-6.0)
[2023-06-02 13:38] LABS: ALBUMIN 3.6 G/DL (3.2-5.2); ALKALINE PHOSPHATASE 84 U/L (46-116); ALT/SGPT 31 U/L (7.0-40); AST/SGOT 25 U/L (<34); BILIRUBIN,TOTAL 0.5 MG/DL (0.3-1.2); BLOOD UREA NITROGEN 27 MG/DL (9-23); CALCIUM LEVEL 9.3 MG/DL (8.3-10.6); CARBON DIOXIDE LEVEL 34 MMOL/L (20-31); CHLORIDE LEVEL 103 MMOL/L (98-107); CHOLESTEROL LEVEL 146 MG/DL (<200); CHOLESTEROL RISK RATIO 2.54 (<5); CREATININE FOR GFR 0.97 MG/DL (0.70-1.30); GLOMERULAR FILTRATION RATE > 60.0 (>42); GLUCOSE, FASTING 100 MG/DL (74-106); HDL CHOLESTEROL 57.4 MG/DL (>40); IRON (FE) 68 UG/DL (65-175); LDL CHOLESTEROL 78.2 MG/DL (<100); NON-HDL-C 88.6 MG/DL; PERCENT SATURATION 25.8 % (19.7-50.0); POTASSIUM SERUM 3.8 MMOL/L (3.5-5.1); SODIUM LEVEL 142 MMOL/L (136-145); TOTAL IRON BINDING CAPACITY 264 UG/DL (250-425); TOTAL PROTEIN 6.9 G/DL (5.7-8.2); TRIGLYCERIDES LEVEL 52 MG/DL (<150)
[2023-06-02 13:40] LABS: FERRITIN 104.9 NG/ML (10.5-307.3); THYROID STIMULATING HORMONE 2.605 uIU/ML (0.55-4.78)
[2023-06-02 13:41] LABS: FREE T4 1.19 NG/DL (0.89-1.76)
== END ==
LOC: M SFHCCLAY 08:15
PROVIDERS: ATTEND Nurse Practitioner Family
DX: R53.82 Chronic fatigue, unspecified (principal); R73.09 Other abnormal glucose; E03.9 Hypothyroidism, unspecified; J84.10 Pulmonary fibrosis, unspecified; E78.00 Pure hypercholesterolemia, unspecified; D50.9 Iron deficiency anemia, unspecified

== ENCOUNTER → 2023-06-20 | Outpatient (CLI) | payer MEDICARE, BC ==
[~2023-06-20] MED LIST changes: +ALBU2.5V10; +ALBU8.5H INH; +ALIG4CAP PO; +AMLO1TAB25 PO; +ATOR1TAB19 PO; +B COCAP4 PO; +BUDE0.5S6; +BUDE10.2 INH; +CHLO125TA PO; +ECOT81TA5 PO; +FERR140T3 PO; +FEXO-112 PO; +FEXO-117 PO; +GABA-1171 PO; +GALZ25CA PO; +IPRA3SP; +LEVO50TA5 PO; +LEXA1TAB2 PO; +MAGN250T7 PO; +MELA10CA2 PO; +MONT10TA97 PO; +NIFE15CA PO; +OMEP40CA5 PO; +PATANOL; +POTA-151 PO; +SIME125T PO; +THERTAB52 PO; +VITA100093 PO; +VITA500C24 PO
== END ==
LOC: M RAD 11:13
PROVIDERS: ATTEND Internal Medicine Pulmonary Disease
DX: J47.9 Bronchiectasis, uncomplicated (principal); J84.9 Interstitial pulmonary disease, unspecified

== ENCOUNTER 2023-06-22 11:44 | Day surgery (SDC) | payer MEDICARE, BC ==
[~2023-06-22] VITALS: Ht 152.4 cm; Wt 62.5 kg
[~2023-06-22 11:44] MED LIST changes: +ALBUTEROL SULFATE 2.5MG/0.5ML INH NEB SOLN INH ONE; +CETACAINE SPRAY 5GM As Ordered ONE; +LIDOCAINE 2% 100MG/5ML SDV (FOR ANES.) As Ordered ONE; +LIDOCAINE PRES-FREE 2% 10ML AMP INH ONE; +ONDANSETRON 4MG 2ML VIAL As Ordered ONE; +ROCURONIUM BROMIDE 50MG/5ML VIAL As Ordered ONE; +dexmedeTOMIDine (4MCG/ML)200MCG/50ML BTL (PRECEDEX) As Ordered ONE; +fentaNYL 100 MCG/2 ML INJECTION As Ordered ONE; +propofoL 200 MG/20 ML VIAL As Ordered ONE
[2023-06-22] MEDS ORDERED: LR 1,000 ML IV SCH (12:10)
[2023-06-22] MEDS ORDERED: EPINEPHrine 1MG/10ML SYRINGE 1.5IN As Ordered ONE (13:14)
[2023-06-22] MEDS ORDERED: THROMBIN 5,000 UNITS VIAL As Ordered ONE (13:14)
[2023-06-22] MEDS ORDERED: LIDOCAINE 2% JELLY 6ML SYRINGE As Ordered ONE (13:14)
[2023-06-22] MEDS ORDERED: MIDAZOLAM INJ 2MG/2ML VIAL As Ordered ONE (13:15)
[2023-06-22] MEDS: LIDOCAINE 4% TOPICAL SOLN 50 ML BTL As Ordered ONE (13:40)
[2023-06-22] MEDS: LIDOCAINE 1% SDV 30ML VIAL As Ordered ONE (13:42)
[2023-06-22 15:30] VITALS: BP 123/76; TEMP 97.8; O2SAT 95
== END 2023-06-22 15:35 | disposition home or self-care (01) ==
LOC: M SDC 11:44
PROVIDERS: ATTEND Internal Medicine Pulmonary Disease
DX: R91.8 Other nonspecific abnormal finding of lung field (principal); R05.9 Cough, unspecified; I10 Essential (primary) hypertension; E78.5 Hyperlipidemia, unspecified; K21.9 Gastro-esophageal reflux disease without esophagitis; D64.9 Anemia, unspecified; J45.909 Unspecified asthma, uncomplicated; F32.A Depression, unspecified; G47.33 Obstructive sleep apnea (adult) (pediatric); Z79.51 Long term (current) use of inhaled steroids; I73.9 Peripheral vascular disease, unspecified; E03.9 Hypothyroidism, unspecified; R21 Rash and other nonspecific skin eruption
CPT/HCPCS: 31624; 87070; 87102; 87116; 87205; 87206; J1100; J2405; J3010

== ENCOUNTER → 2023-08-23 | Outpatient (REF) | payer MEDICARE, BC ==
[~2023-08-23] MED LIST changes: -ALBU2.5V10; +ALBU2.5V10 INH; -ALBUTEROL SULFATE 2.5MG/0.5ML INH NEB SOLN INH ONE; -CETACAINE SPRAY 5GM As Ordered ONE; -LIDOCAINE 2% 100MG/5ML SDV (FOR ANES.) As Ordered ONE; -LIDOCAINE PRES-FREE 2% 10ML AMP INH ONE; -ONDANSETRON 4MG 2ML VIAL As Ordered ONE; +POTA-298 PO; -ROCURONIUM BROMIDE 50MG/5ML VIAL As Ordered ONE; +ROPI0.5T33 PO; -dexmedeTOMIDine (4MCG/ML)200MCG/50ML BTL (PRECEDEX) As Ordered ONE; -fentaNYL 100 MCG/2 ML INJECTION As Ordered ONE; -propofoL 200 MG/20 ML VIAL As Ordered ONE
[2023-08-23 17:18] LABS: BASO # 0.1 10^3/uL (0.0-0.2); BASO % 0.6 % (0.0-1.0); EOS # 0.3 10^3/uL (0.0-0.5); HEMATOCRIT 36.7 % (42.0-52.0); HEMOGLOBIN 12.4 g/dl (13.5-17.5); LYMPH # 1.3 10^3/uL (1.5-5.0); LYMPH % 15.2 % (24.0-44.0); MEAN CORPUSCULAR HEMOGLOBIN 30.8 pg (27.0-33.0); MEAN CORPUSCULAR HGB CONC 33.8 g/dl (32.0-36.5); MEAN CORPUSCULAR VOLUME 91.3 fl (80.0-96.0); MONO % 11.8 % (2.0-8.0); NEUTROPHILS % 69.1 % (36.0-66.0); PLATELET COUNT, AUTOMATED 225 10^3/uL (150-450); RED BLOOD COUNT 4.02 10^6/uL (4.30-6.10); WHITE BLOOD COUNT 8.6 10^3/uL (4.0-10.0)
[2023-08-23 17:37] LABS: ALBUMIN 3.4 G/DL (3.2-5.2); ALKALINE PHOSPHATASE 80 U/L (46-116); ALT/SGPT 32 U/L (7.0-40); AST/SGOT 25 U/L (<34); BILIRUBIN,TOTAL 0.5 MG/DL (0.3-1.2); BLOOD UREA NITROGEN 33 MG/DL (9-23); CALCIUM LEVEL 9.4 MG/DL (8.3-10.6); CARBON DIOXIDE LEVEL 29 MMOL/L (20-31); CHLORIDE LEVEL 103 MMOL/L (98-107); CREATININE FOR GFR 0.88 MG/DL (0.70-1.30); GLOMERULAR FILTRATION RATE > 60.0 (>42); GLUCOSE, FASTING 103 MG/DL (74-106); POTASSIUM SERUM 3.8 MMOL/L (3.5-5.1); SODIUM LEVEL 140 MMOL/L (136-145); TOTAL PROTEIN 6.7 G/DL (5.7-8.2)
[2023-08-23 18:33] LABS: INR 1.05; PROTHROMBIN TIME 13.4 SECONDS (12.5-14.5)
== END ==
LOC: M SFHCCLAY 10:27
PROVIDERS: ATTEND Nurse Practitioner Family
DX: Z01.818 Encounter for other preprocedural examination (principal); Z79.01 Long term (current) use of anticoagulants

== ENCOUNTER 2023-09-06 06:05 | Day surgery (SDC) | payer MEDICARE, BC ==
[~2023-09-06] VITALS: Ht 154.9 cm; Wt 61.7 kg
[2023-09-06] MEDS ORDERED: LR 1,000 ML IV SCH ×2 (06:15→09:15)
[2023-09-06] MEDS ORDERED: fentaNYL 100 MCG/2 ML INJECTION As Ordered ONE (07:04)
[2023-09-06] MEDS ORDERED: MIDAZOLAM INJ 2MG/2ML VIAL As Ordered ONE (07:04)
[2023-09-06] MEDS ORDERED: propofoL 200 MG/20 ML VIAL As Ordered ONE (07:04)
[2023-09-06] MEDS ORDERED: LIDOCAINE 2% 100MG/5ML SDV (FOR ANES.) As Ordered ONE (07:04)
[2023-09-06] MEDS ORDERED: ROCURONIUM BROMIDE 50MG/5ML VIAL As Ordered ONE (07:04)
[2023-09-06] MEDS ORDERED: ONDANSETRON 4MG 2ML VIAL As Ordered ONE (07:05)
[2023-09-06] MEDS ORDERED: ACETAMINOPHEN 1000MG 100ML IV BAG As Ordered ONE (07:05)
[2023-09-06] MEDS ORDERED: dexmedeTOMIDine (4MCG/ML)200MCG/50ML BTL (PRECEDEX) As Ordered ONE (07:19)
[2023-09-06] MEDS: ceFAZolin SOD 2 GM in IV 1 EA IV ONE (08:00)
[2023-09-06] MEDS ORDERED: SUGAMMADEX SODIUM 500 MG/5 ML VIAL (BRIDION) As Ordered ONE (08:03)
[2023-09-06] MEDS ORDERED: KETOROLAC 60MG 2ML VIAL As Ordered ONE (08:03)
[2023-09-06] MEDS ORDERED: HYDROMORPHONE HCL 0.5 MG/ 0.5 ML SYRINGE IV PRN (09:15)
[2023-09-06] MEDS ORDERED: ONDANSETRON 4MG 2ML VIAL IV PRN (09:15)
[2023-09-06] MEDS: fentaNYL 100 MCG/2 ML INJECTION IV PRN (09:40)
[2023-09-06] MEDS: oxyCODONE 5MG TAB PO PRN (09:49)
[2023-09-06 10:45] VITALS: BP 125/69; O2SAT 93
== END 2023-09-06 10:40 | disposition home or self-care (01) ==
LOC: M SDC 06:05
PROVIDERS: ATTEND Surgery
DX: K42.9 Umbilical hernia without obstruction or gangrene (principal); I10 Essential (primary) hypertension; E78.5 Hyperlipidemia, unspecified; I73.9 Peripheral vascular disease, unspecified; K21.9 Gastro-esophageal reflux disease without esophagitis; R21 Rash and other nonspecific skin eruption; F32.A Depression, unspecified; Z79.51 Long term (current) use of inhaled steroids; Z79.82 Long term (current) use of aspirin; Z79.899 Other long term (current) drug therapy; J84.10 Pulmonary fibrosis, unspecified; J45.909 Unspecified asthma, uncomplicated; G47.33 Obstructive sleep apnea (adult) (pediatric)
CPT/HCPCS: 49593; C1765; C1781; C9290; J0131; J0665; J0690; J1100; J1885; J2250; J2405; J3010; S2900

== ENCOUNTER → 2023-11-15 | Outpatient (CLI) | payer MEDICARE, BC | LOC: M PLAIMG 09:34 | PROVIDERS: ATTEND Internal Medicine Cardiovascular Disease | DX: I27.20 Pulmonary hypertension, unspecified (principal) ==

== ENCOUNTER → 2023-12-20 | Outpatient (REF) | payer MEDICARE, BC ==
[~2023-12-20] MED LIST changes: -FERR140T3 PO; +[UNRECOGNIZED DRUG - CODE] PO
[2023-12-20 12:24] LABS: ALBUMIN 3.6 G/DL (3.2-5.2); ALKALINE PHOSPHATASE 92 U/L (46-116); ALT/SGPT 31 U/L (7.0-40); AST/SGOT 20 U/L (<34); BILIRUBIN,TOTAL 0.5 MG/DL (0.3-1.2); BLOOD UREA NITROGEN 21 MG/DL (9-23); CALCIUM LEVEL 9.8 MG/DL (8.3-10.6); CARBON DIOXIDE LEVEL 35 MMOL/L (20-31); CHLORIDE LEVEL 103 MMOL/L (98-107); CHOLESTEROL LEVEL 166 MG/DL (<200); CHOLESTEROL RISK RATIO 2.54 (<5); CREATININE FOR GFR 0.87 MG/DL (0.70-1.30); GLOMERULAR FILTRATION RATE > 60.0 (>42); GLUCOSE, FASTING 97 MG/DL (74-106); HDL CHOLESTEROL 65.3 MG/DL (>40); LDL CHOLESTEROL 89.9 MG/DL (<100); NON-HDL-C 100.7 MG/DL; PSA SCREENING 0.56 NG/ML (< 4.00); SODIUM LEVEL 142 MMOL/L (136-145); TRIGLYCERIDES LEVEL 54 MG/DL (<150)
[2023-12-20 12:28] LABS: THYROID STIMULATING HORMONE 2.637 uIU/ML (0.55-4.78)
[2023-12-20 12:36] LABS: HEMOGLOBIN A1c 5.4 % (4.0-6.0)
== END ==
LOC: M SFHCCLAY 07:35
PROVIDERS: ATTEND Nurse Practitioner Family
DX: Z00.00 Encounter for general adult medical examination without abnormal findings (principal); G25.81 Restless legs syndrome; E03.9 Hypothyroidism, unspecified; J84.10 Pulmonary fibrosis, unspecified; E78.00 Pure hypercholesterolemia, unspecified; G47.33 Obstructive sleep apnea (adult) (pediatric); R53.82 Chronic fatigue, unspecified; G11.2 Late-onset cerebellar ataxia; Z12.5 Encounter for screening for malignant neoplasm of prostate

== ENCOUNTER → 2023-12-20 | Outpatient (CLI) | payer MEDICARE, BC | LOC: M CLY 07:39 | PROVIDERS: ATTEND Nurse Practitioner Family | DX: Z00.00 Encounter for general adult medical examination without abnormal findings (principal); M79.671 Pain in right foot; G25.81 Restless legs syndrome; E03.9 Hypothyroidism, unspecified; J84.10 Pulmonary fibrosis, unspecified; E78.00 Pure hypercholesterolemia, unspecified; G47.33 Obstructive sleep apnea (adult) (pediatric); R53.82 Chronic fatigue, unspecified; G11.2 Late-onset cerebellar ataxia; Z12.5 Encounter for screening for malignant neoplasm of prostate; Z79.899 Other long term (current) drug therapy | CPT/HCPCS: 73630; 80053; 80061; 83036; 84439; 84443; G0103 ==

== ENCOUNTER → 2024-01-17 | Outpatient (REF) | payer MEDICARE, BC | LOC: M LAB REF 14:56 | PROVIDERS: ATTEND Internal Medicine Pulmonary Disease | DX: R05.9 Cough, unspecified (principal); J47.9 Bronchiectasis, uncomplicated ==

== ENCOUNTER 2024-02-08 12:50 | Inpatient (IN) | payer MEDICARE, BC ==
[~2024-02-08] VITALS: Ht 154.9 cm; Wt 60.5 kg
[2024-02-08] VITALS (9 sets, daily range): BP systolic 116–122; BP diastolic 61–64; TEMP 97.1–98.2; O2SAT 92–97
[~2024-02-08 12:50] MED LIST changes: -BUDE0.5S6; +BUDE0.5S6 INH
[2024-02-08] MEDS: ACETAMINOPHEN 500 MG TAB PO ONE (13:03)
[2024-02-08] MEDS: IPRATROPIUM 0.5MG/ALBUTEROL 2.5MG INH SOL UD 3ML (DUONEB) NEB PRN (13:26)
[2024-02-08 13:30] LABS: BASO % 0.2 % (0.0-1.0); HEMATOCRIT 33.3 % (42.0-52.0); HEMOGLOBIN 11.6 g/dl (13.5-17.5); LYMPH # 0.6 10^3/uL (1.5-5.0); LYMPH % 4.7 % (24.0-44.0); MEAN CORPUSCULAR HEMOGLOBIN 30.8 pg (27.0-33.0); MEAN CORPUSCULAR HGB CONC 34.8 g/dl (32.0-36.5); MEAN CORPUSCULAR VOLUME 88.3 fl (80.0-96.0); MONO # 0.8 10^3/uL (0.0-0.8); MONO % 6.6 % (2.0-8.0); NEUTROPHILS # 9.6 10^3/uL (1.5-8.5); NEUTROPHILS % 79.9 % (36.0-66.0); PLATELET COUNT, AUTOMATED 181 10^3/uL (150-450); RED BLOOD COUNT 3.77 10^6/uL (4.30-6.10)
[2024-02-08 13:38] LABS: ABG BASE EXCESS 5.4 (-2.0-2.0); ABG HCO3 28.4 MMOL/L (22.0-26.0); ABG O2 SATURATION 95.1 % (95.0-99.0); ABG PARTIAL PRESSURE CO2 35.6 mmHg (35.0-45.0); ABG STANDARD HCO3 29.3 MMOL/L. (22.0-26.0); ABG TOTAL CO2 29.4 MMOL/L (23.0-31.0); ABG pH (ARTERIAL) 7.519 UNITS (7.350-7.450)
[2024-02-08 13:53] LABS: ALBUMIN 2.8 G/DL (3.2-5.2); ALKALINE PHOSPHATASE 78 U/L (46-116); ALT/SGPT 28 U/L (7.0-40); AST/SGOT 21 U/L (<34); BILIRUBIN,DIRECT 0.3 MG/DL (<0.4); BILIRUBIN,TOTAL 0.9 MG/DL (0.3-1.2); BLOOD UREA NITROGEN 28 MG/DL (9-23); CARBON DIOXIDE LEVEL 27 MMOL/L (20-31); CHLORIDE LEVEL 103 MMOL/L (98-107); CREATININE FOR GFR 0.85 MG/DL (0.70-1.30); GLOMERULAR FILTRATION RATE > 60.0 (>42); GLUCOSE, FASTING 110 MG/DL (74-106); POTASSIUM SERUM 3.4 MMOL/L (3.5-5.1); SODIUM LEVEL 135 MMOL/L (136-145); TOTAL PROTEIN 6.4 G/DL (5.7-8.2)
[2024-02-08] MEDS: DOXYCYCLINE HYCLATE 100MG TABLET PO ONE (16:38)
[2024-02-08] MEDS: cefTRIAXone SOD 1 GM in DEXTROSE 5% (D5W) ADV/MINI-BAG 50 ML IV ONE (16:38)
[2024-02-08] MEDS: ENOXAPARIN 40MG/0.4ML SYRINGE (J1650 PER 10MG) SC ONE (16:41)
[2024-02-08] MEDS ORDERED: LEVALBUTEROL 1.25MG 0.5ML CONCENTRATE NEB INH PRN (16:50)
[2024-02-08] MEDS ORDERED: IPRATROPIUM 0.02% SOLN 0.5MG 2.5ML NEB INH PRN (16:50)
[2024-02-08] MEDS ORDERED: ONDANSETRON 4MG 2ML VIAL IV PRN (17:00)
[2024-02-08] MEDS ORDERED: SENOKOT S TAB PO PRN (17:00)
[2024-02-08] MEDS ORDERED: ACETAMINOPHEN 325 MG TAB PO PRN (17:00)
[2024-02-08] MEDS ORDERED: MOM 30ML SUSPENSION UDC PO PRN (17:00)
[2024-02-08] MEDS ORDERED: MIRALAX *UNIT DOSE* 17GM PACKET PO PRN (17:00)
[2024-02-08] MEDS ORDERED: OLOP5DRO17 OU (17:32)
[2024-02-08] MEDS ORDERED: SYMB16INH INH (17:32)
[2024-02-08] MEDS ORDERED: APAP325T4 PO (17:32)
[2024-02-08] MEDS ORDERED: PRED10TA2 PO (17:32)
[2024-02-08] MEDS ORDERED: HOME MED LIST COMPLETE! XX SCH (17:35)
[2024-02-08] MEDS: methylPREDNISolone 125MG 2ML VIAL IV SCH (18:44)
[2024-02-08] MEDS: POTASSIUM CHLORIDE 10MEQ SR TABLET PO ONE (18:45)
[2024-02-08] MEDS: guaiFENesin ER TABLET 600 MG TAB PO SCH (20:31)
[2024-02-08] MEDS: ATORVASTATIN 10 MG TAB PO SCH (20:31)
[2024-02-08] MEDS: MULTIVITAMINS/MINERALS THERAP 1 TAB PO SCH (20:31)
[2024-02-08] MEDS: rOPINIRole 0.25 MG TAB(REQUIP) PO SCH (20:31)
[2024-02-08] MEDS: GLYCOPYRROLATE INJ 0.2 MG/ML 2 ML VIAL NEB SCH (20:41)
[2024-02-08] MEDS: IPRATROPIUM 0.02% SOLN 0.5MG 2.5ML NEB INH SCH (20:41)
[2024-02-08] MEDS: LEVALBUTEROL 1.25MG 0.5ML CONCENTRATE NEB INH SCH (20:41)
[2024-02-08] MEDS: FORMOTEROL FUMARATE 20 MCG/2 ML INHALATION SOLUTION (PERFOROMIST) INH SCH (20:53)
[2024-02-08] MEDS ORDERED: guaiFENesin ER TABLET 600 MG TAB PO SCH (21:00)
[2024-02-09] VITALS (12 sets, daily range): BP systolic 114–125; BP diastolic 57–70; TEMP 97.1–98.1; O2SAT 92–98
[2024-02-09] MEDS: CEFEPIME HCL 1 GM in DEXTROSE 5% (D5W) ADV/MINI-BAG 50 ML IV SCH (04:39)
[2024-02-09] MEDS: LEVOTHYROXINE 50MCG TABLET (0.05MG) PO SCH (05:35)
[2024-02-09 06:02] LABS: HEMATOCRIT 32.7 % (42.0-52.0); HEMOGLOBIN 10.9 g/dl (13.5-17.5); LYMPH # 0.5 10^3/uL (1.5-5.0); LYMPH % 8.5 % (24.0-44.0); MEAN CORPUSCULAR HGB CONC 33.3 g/dl (32.0-36.5); MEAN CORPUSCULAR VOLUME 90.1 fl (80.0-96.0); MONO # 0.1 10^3/uL (0.0-0.8); MONO % 2.3 % (2.0-8.0); NEUTROPHILS # 4.7 10^3/uL (1.5-8.5); NEUTROPHILS % 88.6 % (36.0-66.0); PLATELET COUNT, AUTOMATED 183 10^3/uL (150-450); RED BLOOD COUNT 3.63 10^6/uL (4.30-6.10); WHITE BLOOD COUNT 5.3 10^3/uL (4.0-10.0)
[2024-02-09 06:19] LABS: BLOOD UREA NITROGEN 35 MG/DL (9-23); CALCIUM LEVEL 8.9 MG/DL (8.3-10.6); CARBON DIOXIDE LEVEL 28 MMOL/L (20-31); CHLORIDE LEVEL 105 MMOL/L (98-107); CREATININE FOR GFR 0.86 MG/DL (0.70-1.30); GLOMERULAR FILTRATION RATE > 60.0 (>42); GLUCOSE, FASTING 221 MG/DL (74-106); POTASSIUM SERUM 3.9 MMOL/L (3.5-5.1); SODIUM LEVEL 140 MMOL/L (136-145)
[2024-02-09] MEDS: ENOXAPARIN 40MG/0.4ML SYRINGE (J1650 PER 10MG) SC SCH (08:19)
[2024-02-09] MEDS: VITAMIN D 1,000 INTERNATIONAL UNITS TABLET PO SCH (08:19)
[2024-02-09] MEDS: ASPIRIN 81MG CHEW TABLET PO SCH (08:19)
[2024-02-09] MEDS: FERROUS SULFATE 300MG/5ML UDC LIQUID PO SCH (08:19)
[2024-02-09] MEDS: THIAMINE 100 MG TAB PO SCH (08:20)
[2024-02-09] MEDS: ESCITALOPRAM OXALATE 10 MG TAB (LEXAPRO) PO SCH (08:20)
[2024-02-09] MEDS: MAGNESIUM OXIDE 400MG TAB (MAG-OX) PO SCH (08:20)
[2024-02-09] MEDS: ASCORBIC ACID 500 MG TAB PO SCH (08:20)
[2024-02-09] MEDS: MONTELUKAST 10 MG TAB PO SCH (08:20)
[2024-02-09] MEDS: OMEPRAZOLE 20MG CAP PO SCH (08:20)
[2024-02-09] MEDS: ZINC SULFATE 220 MG CAP PO SCH (08:20)
[2024-02-09] MEDS: DOXYCYCLINE HYCLATE 100MG TABLET PO SCH (08:20)
[2024-02-09] MEDS: CHLORTHALIDONE 12.5MG PER 1/2 TABLET PO SCH (08:21)
[2024-02-09 09:30] LABS: HEMOGLOBIN A1c 6.3 % (4.0-6.0)
[2024-02-10] MEDS: RAMELTEON 8 MG TAB (ROZEREM) PO PRN (00:48)
[2024-02-10 05:16] VITALS: BP 142/73; TEMP 97.7; O2SAT 94
[2024-02-10 05:58] LABS: BASO % 0.1 % (0.0-1.0); HEMATOCRIT 31.3 % (42.0-52.0); HEMOGLOBIN 10.8 g/dl (13.5-17.5); LYMPH # 0.5 10^3/uL (1.5-5.0); LYMPH % 3.8 % (24.0-44.0); MEAN CORPUSCULAR HEMOGLOBIN 30.4 pg (27.0-33.0); MEAN CORPUSCULAR HGB CONC 34.5 g/dl (32.0-36.5); MEAN CORPUSCULAR VOLUME 88.2 fl (80.0-96.0); MONO # 0.3 10^3/uL (0.0-0.8); MONO % 2.2 % (2.0-8.0); NEUTROPHILS # 12.9 10^3/uL (1.5-8.5); NEUTROPHILS % 93.2 % (36.0-66.0); PLATELET COUNT, AUTOMATED 193 10^3/uL (150-450); RED BLOOD COUNT 3.55 10^6/uL (4.30-6.10); WHITE BLOOD COUNT 13.8 10^3/uL (4.0-10.0)
[2024-02-10 06:25] LABS: BLOOD UREA NITROGEN 38 MG/DL (9-23); CALCIUM LEVEL 9.1 MG/DL (8.3-10.6); CARBON DIOXIDE LEVEL 27 MMOL/L (20-31); CHLORIDE LEVEL 106 MMOL/L (98-107); CREATININE FOR GFR 0.86 MG/DL (0.70-1.30); GLOMERULAR FILTRATION RATE > 60.0 (>42); GLUCOSE, FASTING 172 MG/DL (74-106); POTASSIUM SERUM 3.7 MMOL/L (3.5-5.1); SODIUM LEVEL 141 MMOL/L (136-145)
[2024-02-10] MEDS: LevoFLOXacin 750 MG TABLET PO SCH (11:20)
[2024-02-10 12:00] VITALS: BP 118/68; TEMP 98.1; O2SAT 92
[2024-02-10 13:44] VITALS: BP 102/55; TEMP 97.3; O2SAT 89
[2024-02-10 13:50] VITALS: TEMP 97.3; O2SAT 82
[2024-02-10 13:57] VITALS: O2SAT 92
[2024-02-10] MEDS: methylPREDNISolone 40MG 1ML VIAL IV SCH (16:05)
[2024-02-10] MEDS ORDERED: ISOVUE-370 76% 100ML VIAL As Ordered ONE (16:08)
[2024-02-10 16:50] LABS: HEMATOCRIT 34.1 % (42.0-52.0)
[2024-02-10 18:58] LABS: VITAMIN B12 LEVEL 985 PG/ML (211-911)
[2024-02-10 18:59] LABS: FOLATE > 24.00 NG/ML (>5.4)
[2024-02-10 21:08] VITALS: BP 123/68; TEMP 98.1; O2SAT 9; O2SAT 93
[2024-02-11 05:43] VITALS: BP 121/68; TEMP 98.6; O2SAT 97
[2024-02-11 06:56] LABS: HEMATOCRIT 30.2 % (42.0-52.0); HEMOGLOBIN 10.3 g/dl (13.5-17.5); LYMPH # 0.5 10^3/uL (1.5-5.0); LYMPH % 4.8 % (24.0-44.0); MEAN CORPUSCULAR HGB CONC 34.1 g/dl (32.0-36.5); MONO # 0.5 10^3/uL (0.0-0.8); MONO % 4.5 % (2.0-8.0); NEUTROPHILS # 8.9 10^3/uL (1.5-8.5); PLATELET COUNT, AUTOMATED 194 10^3/uL (150-450); RED BLOOD COUNT 3.43 10^6/uL (4.30-6.10); WHITE BLOOD COUNT 9.9 10^3/uL (4.0-10.0)
[2024-02-11 07:19] LABS: BLOOD UREA NITROGEN 38 MG/DL (9-23); CALCIUM LEVEL 9.1 MG/DL (8.3-10.6); CARBON DIOXIDE LEVEL 28 MMOL/L (20-31); CHLORIDE LEVEL 108 MMOL/L (98-107); CREATININE FOR GFR 0.78 MG/DL (0.70-1.30); GLOMERULAR FILTRATION RATE > 60.0 (>42); GLUCOSE, FASTING 152 MG/DL (74-106); POTASSIUM SERUM 3.6 MMOL/L (3.5-5.1); SODIUM LEVEL 142 MMOL/L (136-145)
[2024-02-11 09:00] VITALS: O2SAT 94
[2024-02-11 12:00] VITALS: BP 112/67; TEMP 97.9; O2SAT 93
[2024-02-11] MEDS: methylPREDNISolone 40MG 1ML VIAL IV SCH (17:16)
[2024-02-11 20:29] VITALS: BP 117/66; TEMP 98.2; O2SAT 93
[2024-02-12 04:25] VITALS: BP 122/66; TEMP 97.3; O2SAT 96
[2024-02-12 06:04] LABS: BASO % 0.1 % (0.0-1.0); HEMATOCRIT 30.3 % (42.0-52.0); HEMOGLOBIN 10.3 g/dl (13.5-17.5); LYMPH # 0.6 10^3/uL (1.5-5.0); LYMPH % 8.2 % (24.0-44.0); MEAN CORPUSCULAR HEMOGLOBIN 30.8 pg (27.0-33.0); MEAN CORPUSCULAR VOLUME 90.7 fl (80.0-96.0); MONO # 0.6 10^3/uL (0.0-0.8); MONO % 7.8 % (2.0-8.0); NEUTROPHILS # 6.4 10^3/uL (1.5-8.5); NEUTROPHILS % 83.2 % (36.0-66.0); PLATELET COUNT, AUTOMATED 187 10^3/uL (150-450); RED BLOOD COUNT 3.34 10^6/uL (4.30-6.10); WHITE BLOOD COUNT 7.7 10^3/uL (4.0-10.0)
[2024-02-12] MEDS: FUROSEMIDE 40MG/4ML VIAL IV ONE ×2 (06:14→12:53)
[2024-02-12 06:18] VITALS: BP 147/59
[2024-02-12 06:35] LABS: BLOOD UREA NITROGEN 35 MG/DL (9-23); CALCIUM LEVEL 8.9 MG/DL (8.3-10.6); CARBON DIOXIDE LEVEL 30 MMOL/L (20-31); CHLORIDE LEVEL 107 MMOL/L (98-107); CREATININE FOR GFR 0.77 MG/DL (0.70-1.30); GLOMERULAR FILTRATION RATE > 60.0 (>42); GLUCOSE, FASTING 149 MG/DL (74-106); POTASSIUM SERUM 3.3 MMOL/L (3.5-5.1); SODIUM LEVEL 142 MMOL/L (136-145)
[2024-02-12] MEDS: POTASSIUM CHLORIDE 10MEQ SR TABLET PO ONE (08:34)
[2024-02-12 11:28] VITALS: O2SAT 93
[2024-02-12 12:00] VITALS: BP 112/66; TEMP 97.7; O2SAT 96
[2024-02-12 20:00] VITALS: BP 136/72; TEMP 97.5; O2SAT 94
[2024-02-13 04:00] VITALS: BP 149/78; TEMP 97.7; O2SAT 96
[2024-02-13 05:52] LABS: BASO % 0.1 % (0.0-1.0); HEMATOCRIT 32.6 % (42.0-52.0); HEMOGLOBIN 11.1 g/dl (13.5-17.5); LYMPH # 0.6 10^3/uL (1.5-5.0); LYMPH % 8.9 % (24.0-44.0); MEAN CORPUSCULAR HEMOGLOBIN 30.6 pg (27.0-33.0); MEAN CORPUSCULAR VOLUME 89.8 fl (80.0-96.0); MONO # 0.6 10^3/uL (0.0-0.8); MONO % 8.1 % (2.0-8.0); NEUTROPHILS # 5.5 10^3/uL (1.5-8.5); NEUTROPHILS % 81.7 % (36.0-66.0); PLATELET COUNT, AUTOMATED 210 10^3/uL (150-450); RED BLOOD COUNT 3.63 10^6/uL (4.30-6.10); WHITE BLOOD COUNT 6.8 10^3/uL (4.0-10.0)
[2024-02-13 06:16] LABS: BLOOD UREA NITROGEN 39 MG/DL (9-23); CALCIUM LEVEL 9.1 MG/DL (8.3-10.6); CARBON DIOXIDE LEVEL 33 MMOL/L (20-31); CHLORIDE LEVEL 104 MMOL/L (98-107); CREATININE FOR GFR 0.96 MG/DL (0.70-1.30); GLOMERULAR FILTRATION RATE > 60.0 (>42); GLUCOSE, FASTING 130 MG/DL (74-106); POTASSIUM SERUM 3.6 MMOL/L (3.5-5.1); SODIUM LEVEL 142 MMOL/L (136-145)
[2024-02-13 12:00] VITALS: BP 95/57; TEMP 98.1; O2SAT 94
[2024-02-13 15:52] LABS: HOMOCYST(E)INE SERUM 7.9 umol/L (<11.4)
[2024-02-13 20:00] VITALS: BP 127/76; TEMP 98.2; O2SAT 95
[2024-02-13] MEDS: predniSONE 20 MG TAB PO SCH (21:19)
[2024-02-14 04:00] VITALS: BP 135/71; TEMP 98.1; O2SAT 97
[2024-02-14 06:24] LABS: BASO % 0.1 % (0.0-1.0); HEMOGLOBIN 10.8 g/dl (13.5-17.5); LYMPH # 0.4 10^3/uL (1.5-5.0); LYMPH % 4.6 % (24.0-44.0); MEAN CORPUSCULAR HEMOGLOBIN 30.2 pg (27.0-33.0); MEAN CORPUSCULAR HGB CONC 33.8 g/dl (32.0-36.5); MEAN CORPUSCULAR VOLUME 89.4 fl (80.0-96.0); MONO # 0.3 10^3/uL (0.0-0.8); MONO % 3.9 % (2.0-8.0); NEUTROPHILS # 7.5 10^3/uL (1.5-8.5); NEUTROPHILS % 90.7 % (36.0-66.0); PLATELET COUNT, AUTOMATED 214 10^3/uL (150-450); RED BLOOD COUNT 3.58 10^6/uL (4.30-6.10); WHITE BLOOD COUNT 8.2 10^3/uL (4.0-10.0)
[2024-02-14 06:47] LABS: BLOOD UREA NITROGEN 41 MG/DL (9-23); CALCIUM LEVEL 8.7 MG/DL (8.3-10.6); CARBON DIOXIDE LEVEL 32 MMOL/L (20-31); CHLORIDE LEVEL 105 MMOL/L (98-107); CREATININE FOR GFR 0.75 MG/DL (0.70-1.30); GLOMERULAR FILTRATION RATE > 60.0 (>42); GLUCOSE, FASTING 153 MG/DL (74-106); POTASSIUM SERUM 3.9 MMOL/L (3.5-5.1); SODIUM LEVEL 139 MMOL/L (136-145)
[2024-02-14] MEDS ORDERED: PRED10TA2 PO (07:42)
[2024-02-14] MEDS ORDERED: LEVO1TAB40 PO (07:42)
[2024-02-14] MEDS ORDERED: PERF20NE2 INH (07:42)
[2024-02-14] MEDS ORDERED: BEVE1AER INH (07:42)
[2024-02-14] MEDS: TRIAMCINOLONE ACET 0.1% OINTMENT 15GM TOP SCH (11:42)
[2024-02-14] MEDS: diphenhydrAMINE 25MG CAP PO PRN (11:42)
[2024-02-14 12:00] VITALS: BP 120/64; TEMP 98.4; O2SAT 92
[2024-02-14 20:00] VITALS: BP 127/69; TEMP 98.6; O2SAT 91
[2024-02-15 04:51] VITALS: BP 125/63; TEMP 98.8; O2SAT 98
[2024-02-15 06:28] LABS: BASO % 0.1 % (0.0-1.0); HEMATOCRIT 33.6 % (42.0-52.0); HEMOGLOBIN 11.4 g/dl (13.5-17.5); LYMPH # 0.4 10^3/uL (1.5-5.0); LYMPH % 4.1 % (24.0-44.0); MEAN CORPUSCULAR HEMOGLOBIN 30.1 pg (27.0-33.0); MEAN CORPUSCULAR HGB CONC 33.9 g/dl (32.0-36.5); MEAN CORPUSCULAR VOLUME 88.7 fl (80.0-96.0); MONO # 0.3 10^3/uL (0.0-0.8); MONO % 3.2 % (2.0-8.0); NEUTROPHILS # 9.4 10^3/uL (1.5-8.5); NEUTROPHILS % 91.7 % (36.0-66.0); PLATELET COUNT, AUTOMATED 223 10^3/uL (150-450); RED BLOOD COUNT 3.79 10^6/uL (4.30-6.10); WHITE BLOOD COUNT 10.2 10^3/uL (4.0-10.0)
[2024-02-15 06:35] VITALS: O2SAT 99
[2024-02-15 07:01] LABS: BLOOD UREA NITROGEN 37 MG/DL (9-23); CALCIUM LEVEL 8.8 MG/DL (8.3-10.6); CARBON DIOXIDE LEVEL 29 MMOL/L (20-31); CHLORIDE LEVEL 106 MMOL/L (98-107); CREATININE FOR GFR 0.76 MG/DL (0.70-1.30); GLOMERULAR FILTRATION RATE > 60.0 (>42); GLUCOSE, FASTING 149 MG/DL (74-106); SODIUM LEVEL 140 MMOL/L (136-145)
[2024-02-15 08:00] VITALS: BP 130/78; TEMP 97.5; O2SAT 93
[2024-02-15 08:42] VITALS: BP 130/78
[2024-02-15 19:53] LABS: URINE STREP PNEUMONIAE ANTIGEN NOT DETECTED (NOT DETECT)
== END 2024-02-15 13:55 | DRG 871 ==
LOC: EDBD 12:50 → M ED 12:50 → EEVIPCON 15:57 → M ED INP 15:57 → M PCU 17:42 → M MSPAV 02-09 19:05
PROVIDERS: ADMIT General Practice; ATTEND General Practice
DX: A41.9 Sepsis, unspecified organism (principal); J96.01 Acute respiratory failure with hypoxia; J15.5 Pneumonia due to Escherichia coli; E87.1 Hypo-osmolality and hyponatremia; J47.0 Bronchiectasis with acute lower respiratory infection; J84.9 Interstitial pulmonary disease, unspecified; I10 Essential (primary) hypertension; E87.6 Hypokalemia; J84.10 Pulmonary fibrosis, unspecified; G47.33 Obstructive sleep apnea (adult) (pediatric); K44.9 Diaphragmatic hernia without obstruction or gangrene; M54.50 Low back pain, unspecified; Z79.899 Other long term (current) drug therapy; Z79.82 Long term (current) use of aspirin; Z98.41 Cataract extraction status, right eye; Z98.42 Cataract extraction status, left eye; R91.1 Solitary pulmonary nodule; Z86.718 Personal history of other venous thrombosis and embolism

== ENCOUNTER 2024-02-15 12:06 | Inpatient (IN) | payer MEDICARE, BC ==
[~2024-02-15] VITALS: Ht 154.9 cm; Wt 61.1 kg
[~2024-02-15 12:06] MED LIST changes: +APAP325T4 PO; +BEVE1AER INH; +LEVO1TAB40 PO; +OLOP5DRO17 OU; +PERF20NE2 INH; +PRED10TA2 PO; +SYMB16INH INH
[2024-02-15] MEDS ORDERED: RAMELTEON 8 MG TAB (ROZEREM) PO PRN (13:40)
[2024-02-15] MEDS ORDERED: BUDESONIDE 0.5 MG/2 ML INHALATION SUSPENSION INH PRN (13:40)
[2024-02-15] MEDS ORDERED: FLEET ENEMA PR PRN (14:00)
[2024-02-15] MEDS ORDERED: MOM 30ML SUSPENSION UDC PO PRN (14:00)
[2024-02-15] MEDS ORDERED: BISACODYL 10MG SUPP PR PRN (14:00)
[2024-02-15] MEDS ORDERED: ONDANSETRON 4MG TAB PO PRN (14:00)
[2024-02-15] MEDS ORDERED: BISACODYL 5MG TAB PO PRN (14:00)
[2024-02-15] MEDS ORDERED: MIRALAX *UNIT DOSE* 17GM PACKET PO PRN (14:00)
[2024-02-15 14:10] VITALS: BP 109/56; TEMP 98.3; O2SAT 97
[2024-02-15] MEDS: LevoFLOXacin 750 MG TABLET PO ONE (15:43)
[2024-02-15] MEDS: LOPERAMIDE 2 MG CAPLET PO ONE (15:44)
[2024-02-15] MEDS: IPRATROPIUM 0.03% NASAL SPRAY 30 ML (ATROVENT) SCH (16:00)
[2024-02-15] MEDS: SYMBICORT 160/4.5MCG INHALER 6GM INH SCH (19:24)
[2024-02-15 20:00] VITALS: BP 107/62; TEMP 97.7; O2SAT 93
[2024-02-15] MEDS ORDERED: FORMOTEROL FUMARATE 20 MCG/2 ML INHALATION SOLUTION (PERFOROMIST) INH SCH (20:00)
[2024-02-15] MEDS ORDERED: GLYCOPYRROLATE INJ 0.2 MG/ML 2 ML VIAL NEB SCH (20:00)
[2024-02-15] MEDS: rOPINIRole 0.25 MG TAB(REQUIP) PO SCH (20:53)
[2024-02-15] MEDS: RAMELTEON 8 MG TAB (ROZEREM) PO SCH (20:54)
[2024-02-15] MEDS: MONTELUKAST 10 MG TAB PO SCH (20:54)
[2024-02-15] MEDS: OLOPATADINE 0.1% OPHTH SOL 5ML(PATANOL) OU SCH (20:55)
[2024-02-15] MEDS: TRIAMCINOLONE ACET 0.1% OINTMENT 15GM TOP SCH (20:56)
[2024-02-15] MEDS: guaiFENesin ER TABLET 600 MG TAB PO SCH (20:59)
[2024-02-15] MEDS: diphenhydrAMINE 25MG CAP PO PRN (22:34)
[2024-02-16 04:00] VITALS: BP 126/59; TEMP 98.2; O2SAT 95
[2024-02-16] MEDS: LEVOTHYROXINE 50MCG TABLET (0.05MG) PO SCH (05:26)
[2024-02-16 07:14] LABS: BASO % 0.1 % (0.0-1.0); EOS # 0.4 10^3/uL (0.0-0.5); EOS % 3.2 % (0.0-3.0); HEMATOCRIT 32.1 % (42.0-52.0); HEMOGLOBIN 10.9 g/dl (13.5-17.5); LYMPH # 1.4 10^3/uL (1.5-5.0); LYMPH % 11.8 % (24.0-44.0); MEAN CORPUSCULAR HEMOGLOBIN 30.6 pg (27.0-33.0); MEAN CORPUSCULAR VOLUME 90.2 fl (80.0-96.0); MONO # 0.7 10^3/uL (0.0-0.8); MONO % 5.4 % (2.0-8.0); NEUTROPHILS # 9.5 10^3/uL (1.5-8.5); NEUTROPHILS % 78.8 % (36.0-66.0); PLATELET COUNT, AUTOMATED 212 10^3/uL (150-450); RED BLOOD COUNT 3.56 10^6/uL (4.30-6.10); WHITE BLOOD COUNT 12.1 10^3/uL (4.0-10.0)
[2024-02-16 07:47] LABS: BLOOD UREA NITROGEN 34 MG/DL (9-23); CALCIUM LEVEL 8.3 MG/DL (8.3-10.6); CARBON DIOXIDE LEVEL 32 MMOL/L (20-31); CHLORIDE LEVEL 107 MMOL/L (98-107); CREATININE FOR GFR 0.77 MG/DL (0.70-1.30); GLOMERULAR FILTRATION RATE > 60.0 (>42); GLUCOSE, FASTING 88 MG/DL (74-106); POTASSIUM SERUM 3.1 MMOL/L (3.5-5.1); SODIUM LEVEL 140 MMOL/L (136-145)
[2024-02-16] MEDS: FEXOFENADINE 60MG TAB PO SCH (08:03)
[2024-02-16] MEDS: MULTIVITAMINS/MINERALS THERAP 1 TAB PO SCH (08:03)
[2024-02-16] MEDS: LACTOBACILLUS ACIDOPHILUS CAP (BACID) PO SCH (08:04)
[2024-02-16] MEDS: CHLORTHALIDONE 12.5MG PER 1/2 TABLET PO SCH (08:04)
[2024-02-16] MEDS: ASCORBIC ACID 500 MG TAB PO SCH (08:04)
[2024-02-16] MEDS: predniSONE 10MG TAB PO SCH (08:04)
[2024-02-16] MEDS: ZINC SULFATE 220 MG CAP PO SCH (08:04)
[2024-02-16] MEDS: OMEPRAZOLE 20MG CAP PO SCH (08:05)
[2024-02-16] MEDS: ATORVASTATIN 10 MG TAB PO SCH (08:05)
[2024-02-16] MEDS: ESCITALOPRAM OXALATE 10 MG TAB (LEXAPRO) PO SCH (08:05)
[2024-02-16] MEDS: MAGNESIUM OXIDE 400MG TAB (MAG-OX) PO SCH (08:05)
[2024-02-16] MEDS: ASPIRIN 81MG ENTERIC TABLET PO SCH (08:05)
[2024-02-16] MEDS: ENOXAPARIN 40MG/0.4ML SYRINGE (J1650 PER 10MG) SC SCH (08:06)
[2024-02-16] MEDS: VITAMIN D 1,000 INTERNATIONAL UNITS TABLET PO SCH (08:06)
[2024-02-16] MEDS: LOPERAMIDE 2 MG CAPLET PO PRN (09:46)
[2024-02-16 12:00] VITALS: BP 110/65; TEMP 97.3; O2SAT 96
[2024-02-16] MEDS: FAMOTIDINE 20 MG TAB PO ONE (12:28)
[2024-02-16] MEDS: POTASSIUM CHLORIDE 10MEQ SR TABLET PO ONE (12:28)
[2024-02-16 14:53] LABS: CLOSTRIDIUM DIFFICILE PCR NEGATIVE (NEGATIVE)
[2024-02-16] MEDS: POTASSIUM CHLORIDE 10MEQ SR TABLET PO SCH (16:34)
[2024-02-16 20:00] VITALS: BP 109/58; TEMP 96.2; O2SAT 96
[2024-02-17 04:00] VITALS: BP 143/72; TEMP 96; O2SAT 97
[2024-02-17 06:49] LABS: BASO % 0.1 % (0.0-1.0); EOS # 0.6 10^3/uL (0.0-0.5); EOS % 5.3 % (0.0-3.0); HEMATOCRIT 32.5 % (42.0-52.0); HEMOGLOBIN 11.1 g/dl (13.5-17.5); LYMPH # 1.3 10^3/uL (1.5-5.0); LYMPH % 12.2 % (24.0-44.0); MEAN CORPUSCULAR HEMOGLOBIN 31.1 pg (27.0-33.0); MEAN CORPUSCULAR HGB CONC 34.2 g/dl (32.0-36.5); MONO # 0.5 10^3/uL (0.0-0.8); MONO % 4.6 % (2.0-8.0); NEUTROPHILS # 7.9 10^3/uL (1.5-8.5); NEUTROPHILS % 76.7 % (36.0-66.0); PLATELET COUNT, AUTOMATED 216 10^3/uL (150-450); RED BLOOD COUNT 3.57 10^6/uL (4.30-6.10); WHITE BLOOD COUNT 10.3 10^3/uL (4.0-10.0)
[2024-02-17 07:05] LABS: BLOOD UREA NITROGEN 30 MG/DL (9-23); CALCIUM LEVEL 8.7 MG/DL (8.3-10.6); CARBON DIOXIDE LEVEL 31 MMOL/L (20-31); CHLORIDE LEVEL 106 MMOL/L (98-107); CREATININE FOR GFR 0.74 MG/DL (0.70-1.30); GLOMERULAR FILTRATION RATE > 60.0 (>42); GLUCOSE, FASTING 81 MG/DL (74-106); SODIUM LEVEL 139 MMOL/L (136-145)
[2024-02-17] MEDS: FERROUS SULFATE 325MG TAB PO SCH (09:20)
[2024-02-17] MEDS: ACETAMINOPHEN 325 MG TAB PO PRN (09:21)
[2024-02-17 12:12] VITALS: BP 105/58; TEMP 99.1; O2SAT 92
[2024-02-17 20:54] VITALS: BP 100/56; TEMP 97.6; O2SAT 94
[2024-02-18 04:53] VITALS: BP 118/69; TEMP 97.3; O2SAT 94
[2024-02-18 06:51] LABS: BASO % 0.1 % (0.0-1.0); EOS # 0.6 10^3/uL (0.0-0.5); EOS % 5.5 % (0.0-3.0); HEMOGLOBIN 10.2 g/dl (13.5-17.5); LYMPH # 1.2 10^3/uL (1.5-5.0); LYMPH % 11.6 % (24.0-44.0); MEAN CORPUSCULAR HEMOGLOBIN 30.3 pg (27.0-33.0); MONO # 0.7 10^3/uL (0.0-0.8); MONO % 6.6 % (2.0-8.0); NEUTROPHILS # 8.1 10^3/uL (1.5-8.5); NEUTROPHILS % 75.2 % (36.0-66.0); PLATELET COUNT, AUTOMATED 203 10^3/uL (150-450); RED BLOOD COUNT 3.37 10^6/uL (4.30-6.10); WHITE BLOOD COUNT 10.7 10^3/uL (4.0-10.0)
[2024-02-18 07:18] LABS: BLOOD UREA NITROGEN 31 MG/DL (9-23); CALCIUM LEVEL 8.2 MG/DL (8.3-10.6); CARBON DIOXIDE LEVEL 29 MMOL/L (20-31); CHLORIDE LEVEL 105 MMOL/L (98-107); CREATININE FOR GFR 0.74 MG/DL (0.70-1.30); GLOMERULAR FILTRATION RATE > 60.0 (>42); GLUCOSE, FASTING 83 MG/DL (74-106); POTASSIUM SERUM 3.7 MMOL/L (3.5-5.1); SODIUM LEVEL 137 MMOL/L (136-145)
[2024-02-18 12:00] VITALS: BP 115/61; TEMP 98; O2SAT 95
[2024-02-18 19:58] VITALS: BP 109/56; TEMP 97.6; O2SAT 92
[2024-02-19 04:00] VITALS: BP 130/72; TEMP 97.6; O2SAT 91
[2024-02-19 07:02] LABS: BASO % 0.1 % (0.0-1.0); EOS # 0.5 10^3/uL (0.0-0.5); EOS % 4.5 % (0.0-3.0); HEMATOCRIT 29.4 % (42.0-52.0); HEMOGLOBIN 10.2 g/dl (13.5-17.5); LYMPH # 1.3 10^3/uL (1.5-5.0); MEAN CORPUSCULAR HEMOGLOBIN 30.8 pg (27.0-33.0); MEAN CORPUSCULAR HGB CONC 34.7 g/dl (32.0-36.5); MEAN CORPUSCULAR VOLUME 88.8 fl (80.0-96.0); MONO # 0.8 10^3/uL (0.0-0.8); MONO % 7.1 % (2.0-8.0); NEUTROPHILS # 8.2 10^3/uL (1.5-8.5); NEUTROPHILS % 75.2 % (36.0-66.0); PLATELET COUNT, AUTOMATED 213 10^3/uL (150-450); RED BLOOD COUNT 3.31 10^6/uL (4.30-6.10); WHITE BLOOD COUNT 10.9 10^3/uL (4.0-10.0)
[2024-02-19 07:35] LABS: BLOOD UREA NITROGEN 26 MG/DL (9-23); CALCIUM LEVEL 8.2 MG/DL (8.3-10.6); CARBON DIOXIDE LEVEL 31 MMOL/L (20-31); CHLORIDE LEVEL 102 MMOL/L (98-107); CREATININE FOR GFR 0.75 MG/DL (0.70-1.30); GLOMERULAR FILTRATION RATE > 60.0 (>42); GLUCOSE, FASTING 82 MG/DL (74-106); POTASSIUM SERUM 3.5 MMOL/L (3.5-5.1); SODIUM LEVEL 136 MMOL/L (136-145)
[2024-02-19 08:15] VITALS: BP 116/68
[2024-02-19 12:00] VITALS: BP 113/60; TEMP 99.2; O2SAT 94
[2024-02-19] MEDS: ALBUTEROL SULFATE 2.5MG/0.5ML INH NEB SOLN INH PRN (19:47)
[2024-02-19 19:59] VITALS: BP 102/55; TEMP 96.5; O2SAT 91
[2024-02-20 04:00] VITALS: BP 107/60; TEMP 97.6; O2SAT 93
[2024-02-20 06:38] LABS: BASO % 0.1 % (0.0-1.0); EOS # 0.5 10^3/uL (0.0-0.5); EOS % 4.6 % (0.0-3.0); HEMATOCRIT 28.3 % (42.0-52.0); HEMOGLOBIN 9.9 g/dl (13.5-17.5); LYMPH # 1.1 10^3/uL (1.5-5.0); LYMPH % 10.2 % (24.0-44.0); MEAN CORPUSCULAR HEMOGLOBIN 31.1 pg (27.0-33.0); MONO # 0.9 10^3/uL (0.0-0.8); NEUTROPHILS # 8.2 10^3/uL (1.5-8.5); NEUTROPHILS % 75.7 % (36.0-66.0); PLATELET COUNT, AUTOMATED 200 10^3/uL (150-450); RED BLOOD COUNT 3.18 10^6/uL (4.30-6.10); WHITE BLOOD COUNT 10.8 10^3/uL (4.0-10.0)
[2024-02-20 07:17] LABS: BLOOD UREA NITROGEN 18 MG/DL (9-23); CARBON DIOXIDE LEVEL 31 MMOL/L (20-31); CHLORIDE LEVEL 102 MMOL/L (98-107); CREATININE FOR GFR 0.77 MG/DL (0.70-1.30); GLOMERULAR FILTRATION RATE > 60.0 (>42); GLUCOSE, FASTING 87 MG/DL (74-106); POTASSIUM SERUM 3.3 MMOL/L (3.5-5.1); SODIUM LEVEL 137 MMOL/L (136-145)
[2024-02-20 10:11] VITALS: TEMP 102.8
[2024-02-20] MEDS ORDERED: ISOVUE-370 76% 100ML VIAL As Ordered ONE (10:52)
[2024-02-20 11:04] LABS: BASO % 0.2 % (0.0-1.0); EOS # 0.4 10^3/uL (0.0-0.5); EOS % 3.4 % (0.0-3.0); HEMOGLOBIN 10.8 g/dl (13.5-17.5); LYMPH # 0.7 10^3/uL (1.5-5.0); MEAN CORPUSCULAR HGB CONC 34.8 g/dl (32.0-36.5); MEAN CORPUSCULAR VOLUME 89.1 fl (80.0-96.0); MONO # 0.8 10^3/uL (0.0-0.8); MONO % 6.3 % (2.0-8.0); NEUTROPHILS % 83.7 % (36.0-66.0); PLATELET COUNT, AUTOMATED 224 10^3/uL (150-450); RED BLOOD COUNT 3.48 10^6/uL (4.30-6.10); WHITE BLOOD COUNT 13.1 10^3/uL (4.0-10.0)
[2024-02-20 11:16] LABS: ERYTHROCYTE SEDIMENTATION RATE 19 mm/hr (0-20)
[2024-02-20 11:19] VITALS: TEMP 101.5; O2SAT 92
[2024-02-20 11:19] LABS: C REACTIVE PROTEIN QUANTITATIV 3.3 MG/DL (<1.0)
[2024-02-20 11:27] LABS: PROCALCITONIN 0.17 ng/ml
[2024-02-20 12:00] VITALS: BP 108/58; TEMP 100.2; O2SAT 96
[2024-02-20] MEDS: POTASSIUM CHLORIDE 10MEQ SR TABLET PO SCH (12:09)
[2024-02-20] MEDS: IPRATROPIUM 0.5MG/ALBUTEROL 2.5MG INH SOL UD 3ML (DUONEB) NEB SCH (14:00)
[2024-02-20 14:27] LABS: ABG BASE EXCESS -2.3 (-2.0-2.0); ABG HCO3 21.5 MMOL/L (22.0-26.0); ABG O2 SATURATION 97.1 % (95.0-99.0); ABG PARTIAL PRESSURE CO2 33.3 mmHg (35.0-45.0); ABG PARTIAL PRESSURE O2 96.5 mmHg (75.0-100.0); ABG STANDARD HCO3 22.6 MMOL/L. (22.0-26.0); ABG TOTAL CO2 22.5 MMOL/L (23.0-31.0); ABG pH (ARTERIAL) 7.427 UNITS (7.350-7.450)
[2024-02-20] MEDS: FUROSEMIDE 40MG/4ML VIAL IV SCH (15:08)
[2024-02-20] MEDS ORDERED: PRED10TA2 PO (15:11)
[2024-02-20] MEDS ORDERED: ALBU8.5H INH (15:11)
[2024-02-20] MEDS ORDERED: POTA-298 PO (15:11)
[2024-02-20] MEDS ORDERED: FERR1TAB8 PO (15:11)
[2024-02-20 15:37] VITALS: TEMP 99.8; O2SAT 94
[2024-02-20] MEDS: SODIUM CHLORIDE 0.9% 3ML NEB SOLUTION FOR INHALATION INH SCH (16:00)
[2024-02-20] MEDS: LevoFLOXacin 750 MG TABLET PO SCH (18:00)
[2024-02-20 20:00] VITALS: BP 102/60; TEMP 98; O2SAT 94
[2024-02-20] MEDS: guaiFENesin ER TABLET 600 MG TAB PO SCH (21:18)
[2024-02-21 04:00] VITALS: BP 111/64; TEMP 98.5; O2SAT 100
[2024-02-21 06:24] LABS: BASO % 0.2 % (0.0-1.0); EOS # 0.3 10^3/uL (0.0-0.5); HEMATOCRIT 28.1 % (42.0-52.0); HEMOGLOBIN 9.8 g/dl (13.5-17.5); LYMPH # 0.9 10^3/uL (1.5-5.0); LYMPH % 8.9 % (24.0-44.0); MEAN CORPUSCULAR HGB CONC 34.9 g/dl (32.0-36.5); MEAN CORPUSCULAR VOLUME 88.9 fl (80.0-96.0); MONO # 0.9 10^3/uL (0.0-0.8); MONO % 8.8 % (2.0-8.0); NEUTROPHILS # 7.7 10^3/uL (1.5-8.5); NEUTROPHILS % 77.2 % (36.0-66.0); PLATELET COUNT, AUTOMATED 206 10^3/uL (150-450); RED BLOOD COUNT 3.16 10^6/uL (4.30-6.10); WHITE BLOOD COUNT 9.9 10^3/uL (4.0-10.0)
[2024-02-21 06:55] LABS: BLOOD UREA NITROGEN 23 MG/DL (9-23); CALCIUM LEVEL 8.1 MG/DL (8.3-10.6); CARBON DIOXIDE LEVEL 30 MMOL/L (20-31); CHLORIDE LEVEL 105 MMOL/L (98-107); CREATININE FOR GFR 0.84 MG/DL (0.70-1.30); GLOMERULAR FILTRATION RATE > 60.0 (>42); GLUCOSE, FASTING 84 MG/DL (74-106); POTASSIUM SERUM 3.7 MMOL/L (3.5-5.1); SODIUM LEVEL 141 MMOL/L (136-145)
[2024-02-21] MEDS ORDERED: E-Z-PAQUE 96% w/w SUSP 176GM BTL As Ordered ONE (10:27)
[2024-02-21] MEDS ORDERED: BARIUM SULFATE 700 MG TABLET (E-Z-DISK) As Ordered ONE (10:27)
[2024-02-21] MEDS ORDERED: VARIBAR NECTAR 40% w/v 240ML SUSP BTL As Ordered ONE (10:27)
[2024-02-21] MEDS ORDERED: VARIBAR PUDDING 40% w/v 230ML TUBE As Ordered ONE (10:27)
[2024-02-21 12:00] VITALS: BP 106/52; TEMP 97.6; O2SAT 97
[2024-02-21] MEDS: LACTOBACILLUS ACIDOPHILUS CAP (BACID) PO ONE (12:46)
[2024-02-21] MEDS: POTASSIUM CHLORIDE 10MEQ SR TABLET PO ONE (12:47)
[2024-02-21] MEDS: THIAMINE INJection 500 MG in NS 100 ML IV SCH (15:21)
[2024-02-21] MEDS: LACTOBACILLUS ACIDOPHILUS CAP (BACID) PO SCH (18:14)
[2024-02-21 20:00] VITALS: BP 103/58; TEMP 98; O2SAT 96
[2024-02-22 04:00] VITALS: BP 128/70; TEMP 98.1; O2SAT 93
[2024-02-22 06:15] LABS: BASO % 0.1 % (0.0-1.0); EOS # 0.2 10^3/uL (0.0-0.5); EOS % 2.5 % (0.0-3.0); HEMATOCRIT 27.1 % (42.0-52.0); HEMOGLOBIN 9.2 g/dl (13.5-17.5); LYMPH # 0.9 10^3/uL (1.5-5.0); LYMPH % 9.9 % (24.0-44.0); MEAN CORPUSCULAR HEMOGLOBIN 30.2 pg (27.0-33.0); MEAN CORPUSCULAR HGB CONC 33.9 g/dl (32.0-36.5); MEAN CORPUSCULAR VOLUME 88.9 fl (80.0-96.0); MONO # 0.7 10^3/uL (0.0-0.8); MONO % 7.7 % (2.0-8.0); NEUTROPHILS # 7.3 10^3/uL (1.5-8.5); NEUTROPHILS % 78.2 % (36.0-66.0); PLATELET COUNT, AUTOMATED 210 10^3/uL (150-450); RED BLOOD COUNT 3.05 10^6/uL (4.30-6.10); WHITE BLOOD COUNT 9.4 10^3/uL (4.0-10.0)
[2024-02-22 06:47] LABS: BLOOD UREA NITROGEN 26 MG/DL (9-23); CALCIUM LEVEL 8.4 MG/DL (8.3-10.6); CARBON DIOXIDE LEVEL 29 MMOL/L (20-31); CHLORIDE LEVEL 105 MMOL/L (98-107); CREATININE FOR GFR 0.77 MG/DL (0.70-1.30); GLOMERULAR FILTRATION RATE > 60.0 (>42); GLUCOSE, FASTING 89 MG/DL (74-106); POTASSIUM SERUM 3.8 MMOL/L (3.5-5.1); SODIUM LEVEL 139 MMOL/L (136-145)
[2024-02-22] MEDS: POTASSIUM CHLORIDE 10MEQ SR TABLET PO SCH (07:20)
[2024-02-22 12:00] VITALS: BP 109/64; TEMP 98.2; O2SAT 95
[2024-02-22 20:00] VITALS: BP 102/58; TEMP 97.9; O2SAT 92
[2024-02-23] VITALS (13 sets, daily range): BP systolic 95–130; BP diastolic 50–80; TEMP 97.1–100.7; O2SAT 80–96
[2024-02-23 06:27] LABS: BASO % 0.2 % (0.0-1.0); EOS # 0.3 10^3/uL (0.0-0.5); EOS % 3.4 % (0.0-3.0); HEMATOCRIT 28.8 % (42.0-52.0); HEMOGLOBIN 9.7 g/dl (13.5-17.5); LYMPH # 1.1 10^3/uL (1.5-5.0); LYMPH % 10.9 % (24.0-44.0); MEAN CORPUSCULAR HEMOGLOBIN 30.5 pg (27.0-33.0); MEAN CORPUSCULAR HGB CONC 33.7 g/dl (32.0-36.5); MEAN CORPUSCULAR VOLUME 90.6 fl (80.0-96.0); MONO # 0.6 10^3/uL (0.0-0.8); MONO % 5.8 % (2.0-8.0); NEUTROPHILS # 7.8 10^3/uL (1.5-8.5); NEUTROPHILS % 77.8 % (36.0-66.0); PLATELET COUNT, AUTOMATED 222 10^3/uL (150-450); RED BLOOD COUNT 3.18 10^6/uL (4.30-6.10)
[2024-02-23 06:45] LABS: BLOOD UREA NITROGEN 25 MG/DL (9-23); CALCIUM LEVEL 8.2 MG/DL (8.3-10.6); CARBON DIOXIDE LEVEL 30 MMOL/L (20-31); CHLORIDE LEVEL 107 MMOL/L (98-107); CREATININE FOR GFR 0.88 MG/DL (0.70-1.30); GLOMERULAR FILTRATION RATE > 60.0 (>42); GLUCOSE, FASTING 82 MG/DL (74-106); POTASSIUM SERUM 3.8 MMOL/L (3.5-5.1); SODIUM LEVEL 140 MMOL/L (136-145)
[2024-02-23] MEDS: FUROSEMIDE 20MG/2ML VIAL IV ONE (17:34)
[2024-02-23] MEDS: ALBUTEROL SULFATE 2.5MG/0.5ML INH NEB SOLN NEB ONE (17:51)
[2024-02-23] MEDS: ALBUTEROL SULFATE 2.5MG/0.5ML INH NEB SOLN NEB SCH (19:55)
[2024-02-24 04:00] VITALS: BP 117/84; TEMP 97.6; O2SAT 91
[2024-02-24 06:18] LABS: BASO % 0.2 % (0.0-1.0); EOS # 0.3 10^3/uL (0.0-0.5); EOS % 3.1 % (0.0-3.0); HEMATOCRIT 28.2 % (42.0-52.0); HEMOGLOBIN 9.6 g/dl (13.5-17.5); LYMPH % 11.3 % (24.0-44.0); MEAN CORPUSCULAR HEMOGLOBIN 30.8 pg (27.0-33.0); MEAN CORPUSCULAR VOLUME 90.4 fl (80.0-96.0); MONO # 0.4 10^3/uL (0.0-0.8); MONO % 4.5 % (2.0-8.0); NEUTROPHILS # 7.2 10^3/uL (1.5-8.5); NEUTROPHILS % 79.1 % (36.0-66.0); PLATELET COUNT, AUTOMATED 202 10^3/uL (150-450); RED BLOOD COUNT 3.12 10^6/uL (4.30-6.10); WHITE BLOOD COUNT 9.1 10^3/uL (4.0-10.0)
[2024-02-24 06:47] LABS: BLOOD UREA NITROGEN 22 MG/DL (9-23); CALCIUM LEVEL 8.4 MG/DL (8.3-10.6); CARBON DIOXIDE LEVEL 29 MMOL/L (20-31); CHLORIDE LEVEL 105 MMOL/L (98-107); CREATININE FOR GFR 0.94 MG/DL (0.70-1.30); GLOMERULAR FILTRATION RATE > 60.0 (>42); GLUCOSE, FASTING 98 MG/DL (74-106); POTASSIUM SERUM 3.2 MMOL/L (3.5-5.1); SODIUM LEVEL 138 MMOL/L (136-145)
[2024-02-24 08:54] VITALS: BP 120/57; TEMP 100.9; O2SAT 95
[2024-02-24] MEDS: POTASSIUM CHLORIDE 10MEQ SR TABLET PO ONE (08:56)
[2024-02-24 08:59] LABS: MAGNESIUM LEVEL 1.6 MG/DL (1.8-2.4)
[2024-02-24] MEDS: MAGNESIUM OXIDE 400MG TAB (MAG-OX) PO ONE (09:35)
[2024-02-24 09:38] VITALS: TEMP 100.3
[2024-02-24 10:12] VITALS: TEMP 98.9
[2024-02-24 12:00] VITALS: BP 104/58; TEMP 98.6; O2SAT 97
[2024-02-24] MEDS: PIPERACILLIN/TAZOBACTAM SOD 4.5 GM in DEXTROSE 5% (D5W) ADV/MINI-BAG 50 ML IV SCH (12:44)
[2024-02-24 20:00] VITALS: BP 100/59; TEMP 98.1; O2SAT 96
[2024-02-24 23:07] LABS: L. PNEUMOPHILA (1,3,4,5,6,8) Equivocal (Non Reactive)
[2024-02-25] VITALS (7 sets, daily range): BP systolic 97–138; BP diastolic 55–68; TEMP 97.6–101.1; O2SAT 87–95
[2024-02-25] MEDS: MAALOX 30 ML SUSP *UDC PO PRN (06:28)
[2024-02-25 06:59] LABS: BASO % 0.2 % (0.0-1.0); EOS # 0.3 10^3/uL (0.0-0.5); EOS % 2.6 % (0.0-3.0); HEMATOCRIT 33.8 % (42.0-52.0); HEMOGLOBIN 11.2 g/dl (13.5-17.5); MEAN CORPUSCULAR HEMOGLOBIN 30.4 pg (27.0-33.0); MEAN CORPUSCULAR HGB CONC 33.1 g/dl (32.0-36.5); MEAN CORPUSCULAR VOLUME 91.8 fl (80.0-96.0); MONO # 0.4 10^3/uL (0.0-0.8); MONO % 4.2 % (2.0-8.0); NEUTROPHILS # 8.5 10^3/uL (1.5-8.5); NEUTROPHILS % 81.6 % (36.0-66.0); PLATELET COUNT, AUTOMATED 225 10^3/uL (150-450); RED BLOOD COUNT 3.68 10^6/uL (4.30-6.10); WHITE BLOOD COUNT 10.4 10^3/uL (4.0-10.0)
[2024-02-25 07:30] LABS: BLOOD UREA NITROGEN 20 MG/DL (9-23); CALCIUM LEVEL 9.3 MG/DL (8.3-10.6); CARBON DIOXIDE LEVEL 26 MMOL/L (20-31); CHLORIDE LEVEL 104 MMOL/L (98-107); CREATININE FOR GFR 0.92 MG/DL (0.70-1.30); GLOMERULAR FILTRATION RATE > 60.0 (>42); GLUCOSE, FASTING 92 MG/DL (74-106); SODIUM LEVEL 139 MMOL/L (136-145)
[2024-02-25] MEDS: IBUPROFEN 600MG TAB PO ONE (09:10)
[2024-02-25] MEDS: FUROSEMIDE 40MG/4ML VIAL IV ONE (11:54)
[2024-02-25] MEDS: MIDODRINE 5 MG TAB PO SCH (11:55)
[2024-02-26 01:05] VITALS: BP 131/66; TEMP 98.9; O2SAT 56
[2024-02-26 01:15] VITALS: BP 144/88; TEMP 99.1; O2SAT 54
[2024-02-26] MEDS: FUROSEMIDE 40MG/4ML VIAL IV STA (01:29)
[2024-02-26 01:50] VITALS: BP 131/66; TEMP 98.9; O2SAT 56
[2024-02-26 02:28] LABS: HEMATOCRIT 30.5 % (42.0-52.0); HEMOGLOBIN 10.4 g/dl (13.5-17.5); MEAN CORPUSCULAR HEMOGLOBIN 30.9 pg (27.0-33.0); MEAN CORPUSCULAR HGB CONC 34.1 g/dl (32.0-36.5); MEAN CORPUSCULAR VOLUME 90.5 fl (80.0-96.0); PLATELET COUNT, AUTOMATED 223 10^3/uL (150-450); RED BLOOD COUNT 3.37 10^6/uL (4.30-6.10); WHITE BLOOD COUNT 12.6 10^3/uL (4.0-10.0)
[2024-02-26 02:39] LABS: BLOOD UREA NITROGEN 23 MG/DL (9-23); CALCIUM LEVEL 8.4 MG/DL (8.3-10.6); CARBON DIOXIDE LEVEL 32 MMOL/L (20-31); CHLORIDE LEVEL 102 MMOL/L (98-107); CREATININE FOR GFR 0.99 MG/DL (0.70-1.30); GLOMERULAR FILTRATION RATE > 60.0 (>42); GLUCOSE, FASTING 109 MG/DL (74-106); POTASSIUM SERUM 3.8 MMOL/L (3.5-5.1); SODIUM LEVEL 140 MMOL/L (136-145)
[2024-02-26 03:05] VITALS: O2SAT 99
[2024-02-26 04:08] LABS: CPK CREATINE PHOSPHOKINASE 30 U/L (46-171)
[2024-02-26] MEDS ORDERED: HYDROCORTISONE 100MG/2ML VIAL IV ONE (06:10)
[2024-02-26] MEDS ORDERED: FUROSEMIDE 40MG/4ML VIAL IV SCH (09:00)
== END 2024-02-26 01:50 | disposition short-term general hospital (02) | DRG 551 ==
LOC: UNDOADMIN 14:00 → M PM&R 14:00
PROVIDERS: ADMIT Physical Medicine & Rehabilitation; ATTEND Physical Medicine & Rehabilitation
DX: M51.06 Intervertebral disc disorders with myelopathy, lumbar region (principal); J15.5 Pneumonia due to Escherichia coli; J69.0 Pneumonitis due to inhalation of food and vomit; J96.01 Acute respiratory failure with hypoxia; J84.9 Interstitial pulmonary disease, unspecified; I10 Essential (primary) hypertension; J45.909 Unspecified asthma, uncomplicated; M41.46 Neuromuscular scoliosis, lumbar region; R21 Rash and other nonspecific skin eruption; Z79.899 Other long term (current) drug therapy; Z79.82 Long term (current) use of aspirin; Z86.718 Personal history of other venous thrombosis and embolism; G47.33 Obstructive sleep apnea (adult) (pediatric); E03.9 Hypothyroidism, unspecified; K44.9 Diaphragmatic hernia without obstruction or gangrene; R91.1 Solitary pulmonary nodule; D72.829 Elevated white blood cell count, unspecified; D63.8 Anemia in other chronic diseases classified elsewhere; E78.5 Hyperlipidemia, unspecified; G25.81 Restless legs syndrome; R13.10 Dysphagia, unspecified; K57.90 Diverticulosis of intestine, part unspecified, without perforation or abscess without bleeding; Z98.41 Cataract extraction status, right eye; Z98.42 Cataract extraction status, left eye; Z79.52 Long term (current) use of systemic steroids; M48.061 Spinal stenosis, lumbar region without neurogenic claudication; M41.86 Other forms of scoliosis, lumbar region; K21.9 Gastro-esophageal reflux disease without esophagitis; E87.6 Hypokalemia; R25.1 Tremor, unspecified

== ENCOUNTER 2024-02-26 01:50 | Inpatient (IN) | payer BC, MEDICARE ==
[~2024-02-26] VITALS: Ht 154.9 cm; Wt 53.4 kg
[2024-02-26] VITALS (74 sets, daily range): BP systolic 80–188; BP diastolic 44–108; TEMP 97.3–103.4; O2SAT 90–99
[~2024-02-26 01:50] MED LIST changes: +FERR1TAB8 PO; -FEXO-117 PO; +FEXO-193 PO
[2024-02-26 02:14] LABS: ABG BASE EXCESS 7.5 (-2.0-2.0); ABG HCO3 31.9 MMOL/L (22.0-26.0); ABG O2 SATURATION 98.6 % (95.0-99.0); ABG PARTIAL PRESSURE CO2 44.1 mmHg (35.0-45.0); ABG PARTIAL PRESSURE O2 149.4 mmHg (75.0-100.0); ABG STANDARD HCO3 31.4 MMOL/L. (22.0-26.0); ABG TOTAL CO2 33.2 MMOL/L (23.0-31.0); ABG pH (ARTERIAL) 7.477 UNITS (7.350-7.450)
[2024-02-26] MEDS ORDERED: SUCCINYLCHOLINE INJ 200MG/10ML VIAL IV STA (02:22)
[2024-02-26] MEDS ORDERED: PROPOFOL 1,000 MG/100 ML VIAL As Ordered ONE (02:27)
[2024-02-26] MEDS ORDERED: FENTANYL DRIP LOCK BOX KEY 1 EACH XX PRN (02:30)
[2024-02-26] MEDS ORDERED: MIDAZOLAM INJ 2MG/2ML VIAL As Ordered ONE (02:41)
[2024-02-26] MEDS ORDERED: MIDAZOLAM INJ 2MG/2ML VIAL IV PRN (02:45)
[2024-02-26] MEDS: MIDAZOLAM INJ 2MG/2ML VIAL IV STA (03:01)
[2024-02-26] MEDS: ETOMIDATE INJ 20MG/10ML VIAL IV STA (03:01)
[2024-02-26] MEDS: propofoL 1,000 MG in IV 1 EA IV SCH (03:04)
[2024-02-26] MEDS: MIDAZOLAM 100MG/100ML-0.9%NACL 100 MG in IV 1 EA IV SCH (03:05)
[2024-02-26] MEDS: ACETAMINOPHEN *IV* 1,000 MG in IV 1 EA IV ONE (03:05)
[2024-02-26] MEDS: fentaNYL CITRATE/NaCl 1,000 MCG in IV 1 EA IV SCH (03:06)
[2024-02-26] MEDS: SUCCINYLCHOLINE 100MG/5ML SYRINGE IV STA (03:12)
[2024-02-26] MEDS: LR 1,000 ML IV ONE ×2 (03:13→04:14)
[2024-02-26] MEDS: PIPERACILLIN/TAZOBACTAM SOD 4.5 GM in DEXTROSE 5% (D5W) ADV/MINI-BAG 50 ML IV SCH (04:14)
[2024-02-26] MEDS: NOREPINEPHRINE 4MG IN D5 250ML 4 MG in IV 1 EA IV SCH (05:30)
[2024-02-26 05:55] LABS: BASO % 0.1 % (0.0-1.0); EOS # 0.3 10^3/uL (0.0-0.5); EOS % 2.8 % (0.0-3.0); HEMATOCRIT 24.7 % (42.0-52.0); LYMPH # 0.7 10^3/uL (1.5-5.0); LYMPH % 6.6 % (24.0-44.0); MEAN CORPUSCULAR HEMOGLOBIN 30.9 pg (27.0-33.0); MEAN CORPUSCULAR VOLUME 90.8 fl (80.0-96.0); MONO # 0.3 10^3/uL (0.0-0.8); MONO % 3.2 % (2.0-8.0); NEUTROPHILS # 9.2 10^3/uL (1.5-8.5); NEUTROPHILS % 86.2 % (36.0-66.0); PLATELET COUNT, AUTOMATED 165 10^3/uL (150-450); RED BLOOD COUNT 2.72 10^6/uL (4.30-6.10); WHITE BLOOD COUNT 10.7 10^3/uL (4.0-10.0)
[2024-02-26 05:56] LABS: ABG BASE EXCESS 5.7 (-2.0-2.0); ABG HCO3 30.8 MMOL/L (22.0-26.0); ABG O2 SATURATION 98.2 % (95.0-99.0); ABG PARTIAL PRESSURE CO2 47.7 mmHg (35.0-45.0); ABG PARTIAL PRESSURE O2 160.1 mmHg (75.0-100.0); ABG STANDARD HCO3 29.6 MMOL/L. (22.0-26.0); ABG TOTAL CO2 32.3 MMOL/L (23.0-31.0); ABG pH (ARTERIAL) 7.428 UNITS (7.350-7.450)
[2024-02-26 05:57] LABS: HEMOGLOBIN 8.4 g/dl (13.5-17.5)
[2024-02-26 06:06] LABS: MAGNESIUM LEVEL 1.5 MG/DL (1.8-2.4); PHOSPHORUS LEVEL 3.2 MG/DL (2.4-5.1)
[2024-02-26] MEDS: MAG SULF 1GM/100ML (MAG RUN) 1 GM in IV 1 EA IV SCH (06:36)
[2024-02-26] MEDS: HYDROCORTISONE 100MG/2ML VIAL IV ONE (06:36)
[2024-02-26] MEDS ORDERED: FLUID PLACE HOLDER IV SCH (07:55)
[2024-02-26] MEDS ORDERED: VANCOMYCIN HCL IV SCH (07:55)
[2024-02-26] MEDS: PANTOPRAZOLE 40MG VIAL IV SCH (08:12)
[2024-02-26] MEDS: ENOXAPARIN 40MG/0.4ML SYRINGE (J1650 PER 10MG) SC SCH (08:13)
[2024-02-26] MEDS ORDERED: FAMOTIDINE 20 MG TAB PO SCH (09:00)
[2024-02-26] MEDS: methylPREDNISolone 125MG 2ML VIAL IV SCH (09:41)
[2024-02-26 11:10] LABS: ALBUMIN 2.1 G/DL (3.2-5.2); ALKALINE PHOSPHATASE 69 U/L (40-129); ALT/SGPT 37 U/L (7.0-40); AST/SGOT 36 U/L (<34); BLOOD UREA NITROGEN 18 MG/DL (9-23); CALCIUM LEVEL 8.2 MG/DL (8.3-10.6); CARBON DIOXIDE LEVEL 35 MMOL/L (20-31); CHLORIDE LEVEL 101 MMOL/L (98-107); CREATININE FOR GFR 0.88 MG/DL (0.70-1.30); GLOMERULAR FILTRATION RATE > 60.0 (>42); GLUCOSE, FASTING 168 MG/DL (74-106); MAGNESIUM LEVEL 2.4 MG/DL (1.8-2.4); PHOSPHORUS LEVEL 3.8 MG/DL (2.4-5.1); POTASSIUM SERUM 3.5 MMOL/L (3.5-5.1); SODIUM LEVEL 140 MMOL/L (136-145); TOTAL PROTEIN 5.1 G/DL (5.7-8.2)
[2024-02-26] MEDS: VANCOMYCIN 1,250 MG/250 ML IV BAG *LOAD IV ONE (12:50)
[2024-02-26] MEDS: KCL 10MEQ/100ML SWI (KRUN) 10 MEQ in IV 1 EA IV SCH (14:48)
[2024-02-26] MEDS: FUROSEMIDE 40MG/4ML VIAL IV ONE (16:10)
[2024-02-26] MEDS: VANCOMYCIN 750MG/150 ML IV BAG IV SCH (19:27)
[2024-02-27] VITALS (47 sets, daily range): BP systolic 98–130; BP diastolic 55–76; TEMP 97.5–98.9; O2SAT 88–96
[2024-02-27 07:15] LABS: HEMATOCRIT 26.5 % (42.0-52.0); HEMOGLOBIN 9.1 g/dl (13.5-17.5); LYMPH # 0.5 10^3/uL (1.5-5.0); LYMPH % 6.7 % (24.0-44.0); MEAN CORPUSCULAR HEMOGLOBIN 30.7 pg (27.0-33.0); MEAN CORPUSCULAR HGB CONC 34.3 g/dl (32.0-36.5); MEAN CORPUSCULAR VOLUME 89.5 fl (80.0-96.0); MONO # 0.3 10^3/uL (0.0-0.8); MONO % 4.3 % (2.0-8.0); NEUTROPHILS # 6.6 10^3/uL (1.5-8.5); NEUTROPHILS % 88.3 % (36.0-66.0); PLATELET COUNT, AUTOMATED 188 10^3/uL (150-450); RED BLOOD COUNT 2.96 10^6/uL (4.30-6.10); WHITE BLOOD COUNT 7.4 10^3/uL (4.0-10.0)
[2024-02-27 07:40] LABS: VANCOMYCIN LEVEL TROUGH 14.7 UG/ML (10.0-20.0)
[2024-02-27 07:42] LABS: ALKALINE PHOSPHATASE 64 U/L (40-129); ALT/SGPT 30 U/L (7.0-40); AST/SGOT 19 U/L (<34); BILIRUBIN,TOTAL 0.7 MG/DL (0.3-1.2); BLOOD UREA NITROGEN 23 MG/DL (9-23); CALCIUM LEVEL 8.4 MG/DL (8.3-10.6); CARBON DIOXIDE LEVEL 39 MMOL/L (20-31); CHLORIDE LEVEL 99 MMOL/L (98-107); CREATININE FOR GFR 0.86 MG/DL (0.70-1.30); GLOMERULAR FILTRATION RATE > 60.0 (>42); GLUCOSE, FASTING 145 MG/DL (74-106); MAGNESIUM LEVEL 2.1 MG/DL (1.8-2.4); PHOSPHORUS LEVEL 4.6 MG/DL (2.4-5.1); POTASSIUM SERUM 3.1 MMOL/L (3.5-5.1); SODIUM LEVEL 140 MMOL/L (136-145); TOTAL PROTEIN 5.1 G/DL (5.7-8.2)
[2024-02-27 08:17] LABS: VENOUS BASE EXCESS 12.7 (-2.0-2.0); VENOUS O2 SATURATION 98.9 % (60.0-80.0); VENOUS PARTIAL PRESSURE CO2 46.7 mmHg (38.0-50.0); VENOUS PARTIAL PRESSURE O2 225.2 mmHg (30.0-50.0); VENOUS PH 7.517 UNITS (7.330-7.430); VENOUS STANDARD HCO3 36.5 MMOL/L; VENOUS TOTAL CO2 38.5 MMOL/L (24.0-28.0)
[2024-02-27] MEDS: KCL 10MEQ/100ML SWI (KRUN) 10 MEQ in IV 1 EA IV SCH (08:28)
[2024-02-27] MEDS: LR 1,000 ML IV SCH (13:08)
[2024-02-27 14:41] LABS: BLOOD UREA NITROGEN 28 MG/DL (9-23); CALCIUM LEVEL 8.3 MG/DL (8.3-10.6); CARBON DIOXIDE LEVEL 38 MMOL/L (20-31); CHLORIDE LEVEL 99 MMOL/L (98-107); CREATININE FOR GFR 0.85 MG/DL (0.70-1.30); GLOMERULAR FILTRATION RATE > 60.0 (>42); GLUCOSE, FASTING 161 MG/DL (74-106); POTASSIUM SERUM 3.9 MMOL/L (3.5-5.1); SODIUM LEVEL 139 MMOL/L (136-145)
[2024-02-27] MEDS: PANTOPRAZOLE 40MG VIAL IV ONE (21:42)
[2024-02-28] VITALS (15 sets, daily range): BP systolic 104–145; BP diastolic 57–71; TEMP 97–99; O2SAT 90–99
[2024-02-28 05:01] LABS: BASO % 0.1 % (0.0-1.0); HEMOGLOBIN 9.3 g/dl (13.5-17.5); LYMPH # 0.6 10^3/uL (1.5-5.0); LYMPH % 6.8 % (24.0-44.0); MEAN CORPUSCULAR HEMOGLOBIN 30.8 pg (27.0-33.0); MEAN CORPUSCULAR HGB CONC 34.4 g/dl (32.0-36.5); MEAN CORPUSCULAR VOLUME 89.4 fl (80.0-96.0); MONO # 0.6 10^3/uL (0.0-0.8); MONO % 6.6 % (2.0-8.0); NEUTROPHILS # 7.8 10^3/uL (1.5-8.5); PLATELET COUNT, AUTOMATED 198 10^3/uL (150-450); RED BLOOD COUNT 3.02 10^6/uL (4.30-6.10); WHITE BLOOD COUNT 9.1 10^3/uL (4.0-10.0)
[2024-02-28 05:29] LABS: ALBUMIN 1.9 G/DL (3.2-5.2); ALKALINE PHOSPHATASE 59 U/L (40-129); ALT/SGPT 23 U/L (7.0-40); AST/SGOT 16 U/L (<34); BILIRUBIN,TOTAL 0.6 MG/DL (0.3-1.2); BLOOD UREA NITROGEN 32 MG/DL (9-23); CALCIUM LEVEL 8.6 MG/DL (8.3-10.6); CARBON DIOXIDE LEVEL 37 MMOL/L (20-31); CHLORIDE LEVEL 101 MMOL/L (98-107); CREATININE FOR GFR 0.82 MG/DL (0.70-1.30); GLOMERULAR FILTRATION RATE > 60.0 (>42); GLUCOSE, FASTING 135 MG/DL (74-106); MAGNESIUM LEVEL 2.1 MG/DL (1.8-2.4); PHOSPHORUS LEVEL 3.4 MG/DL (2.4-5.1); POTASSIUM SERUM 3.7 MMOL/L (3.5-5.1); SODIUM LEVEL 140 MMOL/L (136-145)
[2024-02-28] MEDS ORDERED: IPRATROPIUM 0.5MG/ALBUTEROL 2.5MG INH SOL UD 3ML (DUONEB) NEB PRN (08:30)
[2024-02-28] MEDS ORDERED: LEVALBUTEROL 1.25MG 0.5ML CONCENTRATE NEB INH PRN (08:30)
[2024-02-28] MEDS: LEVALBUTEROL 1.25MG 0.5ML CONCENTRATE NEB INH SCH (08:49)
[2024-02-28] MEDS ORDERED: BISACODYL 10MG SUPP PR PRN (09:10)
[2024-02-28] MEDS: BISACODYL 5MG TAB PO SCH (10:20)
[2024-02-28] MEDS: SENOKOT S TAB PO SCH (10:20)
[2024-02-28] MEDS: GLYCOPYRROLATE INJ 0.2 MG/ML 2 ML VIAL NEB SCH (11:10)
[2024-02-28] MEDS: FORMOTEROL FUMARATE 20 MCG/2 ML INHALATION SOLUTION (PERFOROMIST) INH SCH (11:10)
[2024-02-28] MEDS: RAMELTEON 8 MG TAB (ROZEREM) PO ONE (23:42)
[2024-02-29] VITALS (7 sets, daily range): BP systolic 113–131; BP diastolic 56–69; TEMP 97.5; O2SAT 84–99
[2024-02-29 05:26] LABS: HEMATOCRIT 26.2 % (42.0-52.0); LYMPH # 0.7 10^3/uL (1.5-5.0); LYMPH % 10.2 % (24.0-44.0); MEAN CORPUSCULAR HGB CONC 34.4 g/dl (32.0-36.5); MEAN CORPUSCULAR VOLUME 90.3 fl (80.0-96.0); MONO # 0.6 10^3/uL (0.0-0.8); MONO % 8.6 % (2.0-8.0); NEUTROPHILS # 5.6 10^3/uL (1.5-8.5); NEUTROPHILS % 80.5 % (36.0-66.0); PLATELET COUNT, AUTOMATED 176 10^3/uL (150-450); WHITE BLOOD COUNT 6.9 10^3/uL (4.0-10.0)
[2024-02-29 05:51] LABS: ALBUMIN 1.9 G/DL (3.2-5.2); ALKALINE PHOSPHATASE 56 U/L (40-129); ALT/SGPT 28 U/L (7.0-40); AST/SGOT 21 U/L (<34); BILIRUBIN,TOTAL 0.6 MG/DL (0.3-1.2); BLOOD UREA NITROGEN 33 MG/DL (9-23); CALCIUM LEVEL 8.4 MG/DL (8.3-10.6); CARBON DIOXIDE LEVEL 37 MMOL/L (20-31); CHLORIDE LEVEL 99 MMOL/L (98-107); CREATININE FOR GFR 0.88 MG/DL (0.70-1.30); GLOMERULAR FILTRATION RATE > 60.0 (>42); GLUCOSE, FASTING 113 MG/DL (74-106); POTASSIUM SERUM 3.5 MMOL/L (3.5-5.1); SODIUM LEVEL 139 MMOL/L (136-145); TOTAL PROTEIN 5.2 G/DL (5.7-8.2)
[2024-02-29] MEDS: guaiFENesin ER TABLET 600 MG TAB PO SCH (09:40)
[2024-02-29] MEDS ORDERED: SODIUM CHLORIDE 0.9% 3ML NEB SOLUTION FOR INHALATION INH ONE (10:00)
[2024-02-29] MEDS: LEVALBUTEROL 1.25MG 0.5ML CONCENTRATE NEB NEB ONE (11:25)
[2024-02-29] MEDS: SODIUM CHLORIDE HYPERTONIC 3% 4ML NEB SOL INH SCH (11:26)
[2024-02-29] MEDS: SODIUM CHLORIDE HYPERTONIC 3% 4ML NEB SOL INH ONE (11:26)
[2024-02-29] MEDS: IPRATROPIUM 0.02% SOLN 0.5MG 2.5ML NEB INH SCH (11:26)
[2024-02-29] MEDS: LEVALBUTEROL 1.25MG 0.5ML CONCENTRATE NEB INH SCH (11:26)
[2024-03-01] VITALS (33 sets, daily range): BP systolic 80–184; BP diastolic 55–89; TEMP 97.4–101.5; O2SAT 74–99
[2024-03-01 01:45] LABS: ABG BASE EXCESS 7.4 (-2.0-2.0); ABG HCO3 31.7 MMOL/L (22.0-26.0); ABG O2 SATURATION 98.5 % (95.0-99.0); ABG PARTIAL PRESSURE CO2 43.9 mmHg (35.0-45.0); ABG PARTIAL PRESSURE O2 136.1 mmHg (75.0-100.0); ABG STANDARD HCO3 31.3 MMOL/L. (22.0-26.0); ABG TOTAL CO2 33.1 MMOL/L (23.0-31.0); ABG pH (ARTERIAL) 7.477 UNITS (7.350-7.450)
[2024-03-01] MEDS: VANCOMYCIN 1,000 MG/200 ML IV BAG *LOAD IV ONE (01:50)
[2024-03-01] MEDS: methylPREDNISolone 125MG 2ML VIAL IV ONE (01:52)
[2024-03-01 01:55] LABS: BASO % 0.1 % (0.0-1.0); EOS # 0.4 10^3/uL (0.0-0.5); EOS % 4.5 % (0.0-3.0); HEMATOCRIT 31.3 % (42.0-52.0); HEMOGLOBIN 10.1 g/dl (13.5-17.5); LYMPH # 1.1 10^3/uL (1.5-5.0); LYMPH % 11.3 % (24.0-44.0); MEAN CORPUSCULAR HEMOGLOBIN 30.1 pg (27.0-33.0); MEAN CORPUSCULAR HGB CONC 32.3 g/dl (32.0-36.5); MEAN CORPUSCULAR VOLUME 93.2 fl (80.0-96.0); MONO # 0.3 10^3/uL (0.0-0.8); MONO % 3.3 % (2.0-8.0); NEUTROPHILS # 7.7 10^3/uL (1.5-8.5); NEUTROPHILS % 79.9 % (36.0-66.0); PLATELET COUNT, AUTOMATED 186 10^3/uL (150-450); RED BLOOD COUNT 3.36 10^6/uL (4.30-6.10); WHITE BLOOD COUNT 9.6 10^3/uL (4.0-10.0)
[2024-03-01] MEDS: ACETAMINOPHEN *IV* 1,000 MG in IV 1 EA IV ONE (01:56)
[2024-03-01 05:11] LABS: BASO % 0.1 % (0.0-1.0); EOS # 0.2 10^3/uL (0.0-0.5); EOS % 2.1 % (0.0-3.0); HEMATOCRIT 27.9 % (42.0-52.0); HEMOGLOBIN 9.3 g/dl (13.5-17.5); LYMPH # 0.2 10^3/uL (1.5-5.0); LYMPH % 2.3 % (24.0-44.0); MEAN CORPUSCULAR HEMOGLOBIN 30.8 pg (27.0-33.0); MEAN CORPUSCULAR HGB CONC 33.3 g/dl (32.0-36.5); MEAN CORPUSCULAR VOLUME 92.4 fl (80.0-96.0); MONO # 0.2 10^3/uL (0.0-0.8); MONO % 2.4 % (2.0-8.0); NEUTROPHILS # 9.4 10^3/uL (1.5-8.5); NEUTROPHILS % 92.1 % (36.0-66.0); PLATELET COUNT, AUTOMATED 165 10^3/uL (150-450); RED BLOOD COUNT 3.02 10^6/uL (4.30-6.10); WHITE BLOOD COUNT 10.2 10^3/uL (4.0-10.0)
[2024-03-01 05:41] LABS: BLOOD UREA NITROGEN 23 MG/DL (9-23); CARBON DIOXIDE LEVEL 34 MMOL/L (20-31); CHLORIDE LEVEL 101 MMOL/L (98-107); CREATININE FOR GFR 0.85 MG/DL (0.70-1.30); GLOMERULAR FILTRATION RATE > 60.0 (>42); GLUCOSE, FASTING 149 MG/DL (74-106); POTASSIUM SERUM 3.4 MMOL/L (3.5-5.1); SODIUM LEVEL 141 MMOL/L (136-145)
[2024-03-01] MEDS: FUROSEMIDE 40MG/4ML VIAL IV ONE (10:49)
[2024-03-01] MEDS: methylPREDNISolone 125MG 2ML VIAL IV SCH (10:50)
[2024-03-01] MEDS: KCL 10MEQ/100ML SWI (KRUN) 10 MEQ in IV 1 EA IV SCH (10:50)
[2024-03-01] MEDS: VANCOMYCIN/WATER FOR INJ 750 MG in IV 1 EA IV SCH (11:42)
[2024-03-01] MEDS: POTASSIUM CHLORIDE 10MEQ SR TABLET PO ONE (11:42)
[2024-03-01 12:01] LABS: PROCALCITONIN 0.22 ng/ml
[2024-03-01 12:31] LABS: MAGNESIUM LEVEL 1.9 MG/DL (1.8-2.4)
[2024-03-01 13:13] LABS: MAGNESIUM LEVEL 1.9 MG/DL (1.8-2.4); POTASSIUM SERUM 3.5 MMOL/L (3.5-5.1)
[2024-03-01] MEDS: SODIUM CHLORIDE HYPERTONIC 3% 4ML NEB SOL INH SCH (18:13)
[2024-03-01] MEDS: ALBUTEROL SULFATE 2.5MG/0.5ML INH NEB SOLN NEB SCH (22:30)
[2024-03-02] VITALS (7 sets, daily range): BP systolic 113–156; BP diastolic 58–74; TEMP 97.3–98.2; O2SAT 91–96
[2024-03-02 05:01] LABS: EOS % 0.1 % (0.0-3.0); HEMATOCRIT 29.2 % (42.0-52.0); HEMOGLOBIN 9.9 g/dl (13.5-17.5); LYMPH # 0.4 10^3/uL (1.5-5.0); LYMPH % 4.6 % (24.0-44.0); MEAN CORPUSCULAR HEMOGLOBIN 30.5 pg (27.0-33.0); MEAN CORPUSCULAR HGB CONC 33.9 g/dl (32.0-36.5); MEAN CORPUSCULAR VOLUME 89.8 fl (80.0-96.0); MONO # 0.3 10^3/uL (0.0-0.8); MONO % 3.7 % (2.0-8.0); NEUTROPHILS # 7.4 10^3/uL (1.5-8.5); NEUTROPHILS % 91.1 % (36.0-66.0); PLATELET COUNT, AUTOMATED 192 10^3/uL (150-450); RED BLOOD COUNT 3.25 10^6/uL (4.30-6.10); WHITE BLOOD COUNT 8.1 10^3/uL (4.0-10.0)
[2024-03-02 05:22] LABS: BLOOD UREA NITROGEN 27 MG/DL (9-23); CALCIUM LEVEL 8.8 MG/DL (8.3-10.6); CARBON DIOXIDE LEVEL 38 MMOL/L (20-31); CHLORIDE LEVEL 98 MMOL/L (98-107); CREATININE FOR GFR 0.76 MG/DL (0.70-1.30); GLOMERULAR FILTRATION RATE > 60.0 (>42); GLUCOSE, FASTING 169 MG/DL (74-106); POTASSIUM SERUM 3.3 MMOL/L (3.5-5.1); SODIUM LEVEL 139 MMOL/L (136-145)
[2024-03-02] MEDS: POTASSIUM CHLORIDE 10MEQ SR TABLET PO ONE ×2 (10:29→15:42)
[2024-03-02] MEDS: methylPREDNISolone 125MG 2ML VIAL IV SCH (21:36)
[2024-03-03 04:00] VITALS: BP 153/81; TEMP 98.1; O2SAT 93
[2024-03-03 04:47] LABS: EOS % 0.1 % (0.0-3.0); HEMOGLOBIN 9.5 g/dl (13.5-17.5); LYMPH # 0.4 10^3/uL (1.5-5.0); MEAN CORPUSCULAR HEMOGLOBIN 29.8 pg (27.0-33.0); MEAN CORPUSCULAR HGB CONC 32.8 g/dl (32.0-36.5); MEAN CORPUSCULAR VOLUME 90.9 fl (80.0-96.0); MONO # 0.3 10^3/uL (0.0-0.8); MONO % 3.5 % (2.0-8.0); NEUTROPHILS % 91.7 % (36.0-66.0); PLATELET COUNT, AUTOMATED 205 10^3/uL (150-450); RED BLOOD COUNT 3.19 10^6/uL (4.30-6.10); WHITE BLOOD COUNT 8.8 10^3/uL (4.0-10.0)
[2024-03-03 05:11] LABS: BLOOD UREA NITROGEN 33 MG/DL (9-23); CALCIUM LEVEL 8.8 MG/DL (8.3-10.6); CARBON DIOXIDE LEVEL 34 MMOL/L (20-31); CHLORIDE LEVEL 105 MMOL/L (98-107); CREATININE FOR GFR 0.78 MG/DL (0.70-1.30); GLOMERULAR FILTRATION RATE > 60.0 (>42); GLUCOSE, FASTING 163 MG/DL (74-106); POTASSIUM SERUM 3.9 MMOL/L (3.5-5.1); SODIUM LEVEL 143 MMOL/L (136-145)
[2024-03-03 08:00] VITALS: BP 105/58; TEMP 97.6; O2SAT 98
[2024-03-03 12:00] VITALS: BP 112/55; TEMP 98.2; O2SAT 96
[2024-03-03 16:00] VITALS: BP 136/72; TEMP 98.6; O2SAT 92
[2024-03-03 20:00] VITALS: BP 114/62; TEMP 97.7; O2SAT 97
[2024-03-03] MEDS: RAMELTEON 8 MG TAB (ROZEREM) PO PRN (22:21)
[2024-03-04] VITALS (8 sets, daily range): BP systolic 117–151; BP diastolic 58–74; TEMP 97.1–98.5; O2SAT 90–99
[2024-03-04 05:09] LABS: BASO % 0.1 % (0.0-1.0); EOS % 0.1 % (0.0-3.0); HEMATOCRIT 27.8 % (42.0-52.0); LYMPH # 0.3 10^3/uL (1.5-5.0); LYMPH % 3.9 % (24.0-44.0); MEAN CORPUSCULAR HEMOGLOBIN 29.9 pg (27.0-33.0); MEAN CORPUSCULAR HGB CONC 32.4 g/dl (32.0-36.5); MEAN CORPUSCULAR VOLUME 92.4 fl (80.0-96.0); MONO # 0.2 10^3/uL (0.0-0.8); NEUTROPHILS # 7.3 10^3/uL (1.5-8.5); PLATELET COUNT, AUTOMATED 221 10^3/uL (150-450); RED BLOOD COUNT 3.01 10^6/uL (4.30-6.10); WHITE BLOOD COUNT 7.9 10^3/uL (4.0-10.0)
[2024-03-04 05:27] LABS: BLOOD UREA NITROGEN 33 MG/DL (9-23); CALCIUM LEVEL 8.4 MG/DL (8.3-10.6); CARBON DIOXIDE LEVEL 34 MMOL/L (20-31); CHLORIDE LEVEL 106 MMOL/L (98-107); CREATININE FOR GFR 0.74 MG/DL (0.70-1.30); GLOMERULAR FILTRATION RATE > 60.0 (>42); GLUCOSE, FASTING 179 MG/DL (74-106); POTASSIUM SERUM 4.3 MMOL/L (3.5-5.1); SODIUM LEVEL 142 MMOL/L (136-145)
[2024-03-04] MEDS: methylPREDNISolone 40MG 1ML VIAL IV SCH (10:04)
[2024-03-05 03:29] VITALS: BP 133/60; TEMP 98.2; O2SAT 92
[2024-03-05 07:59] VITALS: BP 130/62; TEMP 98; O2SAT 92
[2024-03-05 08:08] LABS: BASO % 0.1 % (0.0-1.0); HEMATOCRIT 28.3 % (42.0-52.0); HEMOGLOBIN 9.3 g/dl (13.5-17.5); LYMPH # 0.5 10^3/uL (1.5-5.0); LYMPH % 6.2 % (24.0-44.0); MEAN CORPUSCULAR HEMOGLOBIN 30.3 pg (27.0-33.0); MEAN CORPUSCULAR HGB CONC 32.9 g/dl (32.0-36.5); MEAN CORPUSCULAR VOLUME 92.2 fl (80.0-96.0); MONO # 0.6 10^3/uL (0.0-0.8); MONO % 7.3 % (2.0-8.0); NEUTROPHILS # 6.5 10^3/uL (1.5-8.5); NEUTROPHILS % 84.7 % (36.0-66.0); PLATELET COUNT, AUTOMATED 243 10^3/uL (150-450); RED BLOOD COUNT 3.07 10^6/uL (4.30-6.10); WHITE BLOOD COUNT 7.7 10^3/uL (4.0-10.0)
[2024-03-05 08:30] LABS: BLOOD UREA NITROGEN 29 MG/DL (9-23); CALCIUM LEVEL 8.4 MG/DL (8.3-10.6); CARBON DIOXIDE LEVEL 32 MMOL/L (20-31); CHLORIDE LEVEL 103 MMOL/L (98-107); CREATININE FOR GFR 0.59 MG/DL (0.70-1.30); GLOMERULAR FILTRATION RATE > 60.0 (>42); GLUCOSE, FASTING 133 MG/DL (74-106); POTASSIUM SERUM 4.5 MMOL/L (3.5-5.1); SODIUM LEVEL 138 MMOL/L (136-145)
[2024-03-05] MEDS: BACTRIM 160MG/800MG DS TAB PO SCH (08:57)
[2024-03-05] MEDS: predniSONE 20 MG TAB PO SCH (08:57)
[2024-03-05 11:32] VITALS: BP 135/65; TEMP 98.1; O2SAT 93
[2024-03-05 12:27] LABS: ANTI SCLERODERMA ANTIBODIES <1.0 NEG AI (<1.0 NEG)
[2024-03-05 16:35] VITALS: BP 129/62; TEMP 98; O2SAT 89
[2024-03-05 16:48] VITALS: O2SAT 93
[2024-03-05 20:29] VITALS: BP 137/67; TEMP 97.5; O2SAT 95
[2024-03-05 23:57] LABS: CYCLIC CITRULLINATED PEPTIDE < 16 UNITS (<20)
[2024-03-06] VITALS (9 sets, daily range): BP systolic 107–151; BP diastolic 52–79; TEMP 97.1–98.2; O2SAT 87–97
[2024-03-06 06:37] LABS: BASO % 0.2 % (0.0-1.0); EOS # 0.2 10^3/uL (0.0-0.5); EOS % 1.7 % (0.0-3.0); HEMATOCRIT 29.2 % (42.0-52.0); LYMPH # 1.3 10^3/uL (1.5-5.0); LYMPH % 12.2 % (24.0-44.0); MEAN CORPUSCULAR HEMOGLOBIN 30.9 pg (27.0-33.0); MEAN CORPUSCULAR HGB CONC 34.2 g/dl (32.0-36.5); MEAN CORPUSCULAR VOLUME 90.1 fl (80.0-96.0); MONO % 8.8 % (2.0-8.0); NEUTROPHILS # 8.1 10^3/uL (1.5-8.5); NEUTROPHILS % 74.2 % (36.0-66.0); PLATELET COUNT, AUTOMATED 281 10^3/uL (150-450); RED BLOOD COUNT 3.24 10^6/uL (4.30-6.10); WHITE BLOOD COUNT 10.9 10^3/uL (4.0-10.0)
[2024-03-06 07:00] LABS: BLOOD UREA NITROGEN 27 MG/DL (9-23); CALCIUM LEVEL 8.9 MG/DL (8.3-10.6); CARBON DIOXIDE LEVEL 31 MMOL/L (20-31); CHLORIDE LEVEL 103 MMOL/L (98-107); CREATININE FOR GFR 0.77 MG/DL (0.70-1.30); GLOMERULAR FILTRATION RATE > 60.0 (>42); GLUCOSE, FASTING 88 MG/DL (74-106); POTASSIUM SERUM 4.4 MMOL/L (3.5-5.1); SODIUM LEVEL 137 MMOL/L (136-145)
[2024-03-06 10:22] LABS: ANA SCREEN, IFA NEGATIVE (NEGATIVE)
[2024-03-07] VITALS (8 sets, daily range): BP systolic 108–146; BP diastolic 62–78; TEMP 97.2–98.2; O2SAT 91–97
[2024-03-07 05:54] LABS: BASO % 0.2 % (0.0-1.0); EOS # 0.3 10^3/uL (0.0-0.5); EOS % 2.6 % (0.0-3.0); HEMATOCRIT 28.8 % (42.0-52.0); HEMOGLOBIN 9.7 g/dl (13.5-17.5); LYMPH # 1.3 10^3/uL (1.5-5.0); LYMPH % 13.7 % (24.0-44.0); MEAN CORPUSCULAR HEMOGLOBIN 30.4 pg (27.0-33.0); MEAN CORPUSCULAR HGB CONC 33.7 g/dl (32.0-36.5); MEAN CORPUSCULAR VOLUME 90.3 fl (80.0-96.0); MONO # 0.9 10^3/uL (0.0-0.8); MONO % 8.9 % (2.0-8.0); NEUTROPHILS # 6.9 10^3/uL (1.5-8.5); NEUTROPHILS % 71.1 % (36.0-66.0); PLATELET COUNT, AUTOMATED 274 10^3/uL (150-450); RED BLOOD COUNT 3.19 10^6/uL (4.30-6.10); WHITE BLOOD COUNT 9.7 10^3/uL (4.0-10.0)
[2024-03-07 06:27] LABS: BLOOD UREA NITROGEN 24 MG/DL (9-23); CALCIUM LEVEL 8.6 MG/DL (8.3-10.6); CARBON DIOXIDE LEVEL 29 MMOL/L (20-31); CHLORIDE LEVEL 104 MMOL/L (98-107); CREATININE FOR GFR 0.76 MG/DL (0.70-1.30); GLOMERULAR FILTRATION RATE > 60.0 (>42); GLUCOSE, FASTING 80 MG/DL (74-106); POTASSIUM SERUM 4.1 MMOL/L (3.5-5.1); SODIUM LEVEL 139 MMOL/L (136-145)
[2024-03-08 04:57] VITALS: BP 127/71; TEMP 97.8; O2SAT 96
[2024-03-08 07:55] VITALS: BP 117/64; TEMP 97.6; O2SAT 90
[2024-03-08] MEDS: PANTOPRAZOLE 40MG TAB (PROTONIX) PO SCH (09:22)
[2024-03-08 12:10] VITALS: BP 104/60; TEMP 97.8; O2SAT 97
[2024-03-08 13:38] LABS: CARBONIC ANHYDRASE VI IgA ABS 6.7 EU/ml (<20.0); CARBONIC ANHYDRASE VI IgM ABS 6.1 EU/ml (<20.0); PAROTID SPECIFIC PROTEIN IgA 6.2 EU/ml (<20.0); PAROTID SPECIFIC PROTEIN IgG 2.2 EU/ml (<20.0); SALIVARY PROTEIN 1 IgA 35.8 EU/ml (<20.0); SALIVARY PROTEIN 1 IgG 3.1 EU/ml (<20.0); SALIVARY PROTEIN 1 IgM 13.3 EU/ml (<20.0)
[2024-03-08 19:49] VITALS: BP 104/62; TEMP 97.2; O2SAT 96
[2024-03-08 23:57] LABS: ANTI JO-1 ANTIBODIES (RDL) < 11 SI (<11); ANTI-EJ AB (RDL) < 11 SI (<11); ANTI-MDA5-AB CADM-140 (RDL) < 11 SI (<11); ANTI-NXP-2 P140 (RDL) < 11 SI (<11); ANTI-OJ AB (RDL) < 11 SI (<11); ANTI-PL-12 AB (RDL) < 11 SI (<11); ANTI-PL-7 AB (RDL) < 11 SI (<11); ANTI-SRP AB (RDL) < 11 SI (<11); ANTI-TIF-1 AB (RDL) < 11 SI (<11); MI 2 BETA ANTIBODIES < 11 SI (<11); MI-2 ANTIBODIES (RDL) < 11 SI (<11)
[2024-03-09 03:17] VITALS: BP 110/58; TEMP 97.5; O2SAT 94
[2024-03-09 05:13] LABS: BASO % 0.3 % (0.0-1.0); EOS # 0.2 10^3/uL (0.0-0.5); EOS % 1.4 % (0.0-3.0); HEMATOCRIT 28.1 % (42.0-52.0); HEMOGLOBIN 9.3 g/dl (13.5-17.5); LYMPH # 0.8 10^3/uL (1.5-5.0); LYMPH % 7.5 % (24.0-44.0); MEAN CORPUSCULAR HEMOGLOBIN 29.9 pg (27.0-33.0); MEAN CORPUSCULAR HGB CONC 33.1 g/dl (32.0-36.5); MEAN CORPUSCULAR VOLUME 90.4 fl (80.0-96.0); MONO % 9.6 % (2.0-8.0); NEUTROPHILS # 8.1 10^3/uL (1.5-8.5); NEUTROPHILS % 77.4 % (36.0-66.0); PLATELET COUNT, AUTOMATED 303 10^3/uL (150-450); RED BLOOD COUNT 3.11 10^6/uL (4.30-6.10); WHITE BLOOD COUNT 10.4 10^3/uL (4.0-10.0)
[2024-03-09 05:36] LABS: BLOOD UREA NITROGEN 30 MG/DL (9-23); CALCIUM LEVEL 8.6 MG/DL (8.3-10.6); CARBON DIOXIDE LEVEL 28 MMOL/L (20-31); CHLORIDE LEVEL 105 MMOL/L (98-107); CREATININE FOR GFR 0.79 MG/DL (0.70-1.30); GLOMERULAR FILTRATION RATE > 60.0 (>42); GLUCOSE, FASTING 114 MG/DL (74-106); POTASSIUM SERUM 3.8 MMOL/L (3.5-5.1); SODIUM LEVEL 138 MMOL/L (136-145)
[2024-03-09 07:51] VITALS: BP 119/62; TEMP 97.2; O2SAT 81
[2024-03-09 13:47] LABS: ASPERGILLUS FUMIGATUS AB NEGATIVE (NEGATIVE); MICROPOLYSPORA FAENI AB NEGATIVE (NEGATIVE); PIGEON SERUM AB NEGATIVE (NEGATIVE); S VIRIDIS NEGATIVE (NEGATIVE); T CANDIDUS NEGATIVE (NEGATIVE); THERMOACTINOMYCES VULGARIS NEGATIVE (NEGATIVE)
[2024-03-09 20:37] VITALS: BP 113/61; TEMP 97.5; O2SAT 95
[2024-03-09] MEDS: PANTOPRAZOLE 40MG TAB (PROTONIX) PO SCH (21:57)
[2024-03-10 03:52] VITALS: BP 134/55; TEMP 97.9; O2SAT 94
[2024-03-10 12:00] VITALS: BP 125/63; TEMP 97.7; O2SAT 95
[2024-03-10 15:38] VITALS: O2SAT 94
[2024-03-10 15:47] VITALS: O2SAT 92
[2024-03-10 17:23] VITALS: O2SAT 90
[2024-03-10 20:11] VITALS: BP 113/73; TEMP 97.9; O2SAT 90
[2024-03-11 04:14] VITALS: BP 114/73; TEMP 97.9; O2SAT 91
[2024-03-11 12:00] VITALS: BP 131/63; TEMP 98.1; O2SAT 91
[2024-03-11 20:03] VITALS: BP 119/71; TEMP 97.9; O2SAT 94
[2024-03-12 04:10] VITALS: BP 135/73; TEMP 98.8; O2SAT 92
[2024-03-12] MEDS ORDERED: E-Z-PAQUE 96% w/w SUSP 176GM BTL As Ordered ONE (08:26)
[2024-03-12] MEDS ORDERED: E-Z-HD 98% w/w 340GM SUSP BTL As Ordered ONE (08:27)
[2024-03-12] MEDS ORDERED: GASTROGRAFIN SOLUTION 30ML As Ordered ONE (08:41)
[2024-03-12 09:36] LABS: BASO % 0.3 % (0.0-1.0); EOS # 0.1 10^3/uL (0.0-0.5); EOS % 1.2 % (0.0-3.0); HEMATOCRIT 28.5 % (42.0-52.0); HEMOGLOBIN 9.3 g/dl (13.5-17.5); LYMPH # 1.8 10^3/uL (1.5-5.0); LYMPH % 15.9 % (24.0-44.0); MEAN CORPUSCULAR HEMOGLOBIN 30.3 pg (27.0-33.0); MEAN CORPUSCULAR HGB CONC 32.6 g/dl (32.0-36.5); MEAN CORPUSCULAR VOLUME 92.8 fl (80.0-96.0); MONO # 1.1 10^3/uL (0.0-0.8); MONO % 9.3 % (2.0-8.0); NEUTROPHILS # 8.1 10^3/uL (1.5-8.5); NEUTROPHILS % 70.4 % (36.0-66.0); PLATELET COUNT, AUTOMATED 287 10^3/uL (150-450); RED BLOOD COUNT 3.07 10^6/uL (4.30-6.10); WHITE BLOOD COUNT 11.6 10^3/uL (4.0-10.0)
[2024-03-12 09:43] LABS: BLOOD UREA NITROGEN 25 MG/DL (9-23); CALCIUM LEVEL 8.5 MG/DL (8.3-10.6); CARBON DIOXIDE LEVEL 30 MMOL/L (20-31); CHLORIDE LEVEL 105 MMOL/L (98-107); CREATININE FOR GFR 0.71 MG/DL (0.70-1.30); GLOMERULAR FILTRATION RATE > 60.0 (>42); GLUCOSE, FASTING 82 MG/DL (74-106); POTASSIUM SERUM 3.8 MMOL/L (3.5-5.1); SODIUM LEVEL 140 MMOL/L (136-145)
[2024-03-12] MEDS: predniSONE 5 MG TAB PO SCH (11:06)
[2024-03-12] MEDS: predniSONE 50 MG TAB PO SCH (11:06)
[2024-03-12 12:00] VITALS: BP 137/73; TEMP 97.9; O2SAT 99
[2024-03-12 16:50] VITALS: O2SAT 95
[2024-03-12 16:54] VITALS: O2SAT 95
[2024-03-12 18:07] VITALS: O2SAT 95
[2024-03-12 20:00] VITALS: BP 108/70; TEMP 97.9; O2SAT 94
[2024-03-12 23:57] LABS: ANTI DS-DNA AB NEGATIVE (NEGATIVE)
[2024-03-13 04:10] VITALS: BP 127/71; TEMP 97.2; O2SAT 93
[2024-03-13 06:15] LABS: BASO % 0.2 % (0.0-1.0); EOS # 0.1 10^3/uL (0.0-0.5); EOS % 0.6 % (0.0-3.0); HEMATOCRIT 29.2 % (42.0-52.0); HEMOGLOBIN 9.6 g/dl (13.5-17.5); LYMPH # 1.5 10^3/uL (1.5-5.0); LYMPH % 12.6 % (24.0-44.0); MEAN CORPUSCULAR HEMOGLOBIN 30.5 pg (27.0-33.0); MEAN CORPUSCULAR HGB CONC 32.9 g/dl (32.0-36.5); MEAN CORPUSCULAR VOLUME 92.7 fl (80.0-96.0); MONO % 8.3 % (2.0-8.0); NEUTROPHILS # 8.8 10^3/uL (1.5-8.5); NEUTROPHILS % 75.3 % (36.0-66.0); PLATELET COUNT, AUTOMATED 281 10^3/uL (150-450); RED BLOOD COUNT 3.15 10^6/uL (4.30-6.10); WHITE BLOOD COUNT 11.6 10^3/uL (4.0-10.0)
[2024-03-13 06:49] LABS: BLOOD UREA NITROGEN 22 MG/DL (9-23); CARBON DIOXIDE LEVEL 31 MMOL/L (20-31); CHLORIDE LEVEL 107 MMOL/L (98-107); GLOMERULAR FILTRATION RATE > 60.0 (>42); GLUCOSE, FASTING 109 MG/DL (74-106); POTASSIUM SERUM 3.7 MMOL/L (3.5-5.1); SODIUM LEVEL 141 MMOL/L (136-145)
[2024-03-13 12:00] VITALS: BP 130/74; TEMP 97.7; O2SAT 92
[2024-03-13 20:25] VITALS: BP 116/71; TEMP 97.7; O2SAT 93
[2024-03-13 23:00] VITALS: O2SAT 94
[2024-03-14] VITALS (11 sets, daily range): BP systolic 100–142; BP diastolic 60–75; TEMP 97.9; O2SAT 89–99
[2024-03-15 04:00] VITALS: BP 126/65; TEMP 97.9; O2SAT 94
[2024-03-15 12:00] VITALS: BP 124/67; TEMP 98.1; O2SAT 95
[2024-03-16 04:00] VITALS: BP 150/80; TEMP 97.7; O2SAT 96
[2024-03-16] MEDS ORDERED: SENN-52 PO (10:05)
[2024-03-16] MEDS ORDERED: MUCI600T31 PO (10:05)
[2024-03-16] MEDS ORDERED: PANT40TA29 PO (10:05)
[2024-03-16] MEDS ORDERED: BACTDSTA PO (10:09)
[2024-03-16] MEDS ORDERED: PRED10TA2 PO (10:46)
[2024-03-16 12:00] VITALS: BP 120/75; TEMP 97.9; O2SAT 95
[2024-03-16 22:00] VITALS: O2SAT 94
[2024-03-17 03:40] VITALS: BP 132/69; TEMP 98.1; O2SAT 94
[2024-03-17 05:15] LABS: HEMATOCRIT 29.7 % (42.0-52.0); HEMOGLOBIN 9.7 g/dl (13.5-17.5); MEAN CORPUSCULAR HEMOGLOBIN 30.6 pg (27.0-33.0); MEAN CORPUSCULAR HGB CONC 32.7 g/dl (32.0-36.5); MEAN CORPUSCULAR VOLUME 93.7 fl (80.0-96.0); PLATELET COUNT, AUTOMATED 212 10^3/uL (150-450); RED BLOOD COUNT 3.17 10^6/uL (4.30-6.10); WHITE BLOOD COUNT 13.2 10^3/uL (4.0-10.0)
[2024-03-17 05:42] LABS: ALBUMIN 2.2 G/DL (3.2-5.2); ALKALINE PHOSPHATASE 70 U/L (40-129); ALT/SGPT 26 U/L (7.0-40); AST/SGOT 10 U/L (<34); BILIRUBIN,TOTAL 0.4 MG/DL (0.3-1.2); BLOOD UREA NITROGEN 22 MG/DL (9-23); CALCIUM LEVEL 8.9 MG/DL (8.3-10.6); CARBON DIOXIDE LEVEL 29 MMOL/L (20-31); CHLORIDE LEVEL 108 MMOL/L (98-107); CREATININE FOR GFR 0.75 MG/DL (0.70-1.30); GLOMERULAR FILTRATION RATE > 60.0 (>42); GLUCOSE, FASTING 90 MG/DL (74-106); POTASSIUM SERUM 3.6 MMOL/L (3.5-5.1); SODIUM LEVEL 140 MMOL/L (136-145)
[2024-03-17] MEDS: predniSONE 10MG TAB PO SCH (10:05)
[2024-03-17 22:00] VITALS: O2SAT 88
[2024-03-17 22:44] VITALS: O2SAT 94
[2024-03-18 03:30] VITALS: BP 114/58; TEMP 97.7; O2SAT 97
[2024-03-18] MEDS: ESCITALOPRAM OXALATE 10 MG TAB (LEXAPRO) PO SCH (10:12)
[2024-03-18 22:45] VITALS: O2SAT 95
[2024-03-19 04:00] VITALS: BP 138/71; TEMP 98.2; O2SAT 95
[2024-03-20 03:50] VITALS: BP 149/84; TEMP 97.3; O2SAT 94
[2024-03-21 03:25] VITALS: BP 138/78; TEMP 97.7; O2SAT 95
== END 2024-03-21 15:00 | disposition home health service (06) | DRG 208 ==
LOC: M ED INP 01:50 → M ICU 01:55 → M MSPAV 02-28 17:49 → M ICU 03-01 01:20 → M PCU 03-04 14:30 → M MSPAV 03-09 11:50
PROVIDERS: ADMIT Student in an Organized Health Care Education/Training Program; ATTEND Internal Medicine
PROC: 5A1945Z Respiratory Ventilation, 24-96 Consecutive Hours (ICD-10-PCS; principal; 2024-02-26)
DX: J96.01 Acute respiratory failure with hypoxia (principal); J15.5 Pneumonia due to Escherichia coli; J69.0 Pneumonitis due to inhalation of food and vomit; E87.3 Alkalosis; J84.9 Interstitial pulmonary disease, unspecified; I50.32 Chronic diastolic (congestive) heart failure; E03.9 Hypothyroidism, unspecified; J45.909 Unspecified asthma, uncomplicated; E87.6 Hypokalemia; K21.9 Gastro-esophageal reflux disease without esophagitis; E83.42 Hypomagnesemia; I11.0 Hypertensive heart disease with heart failure; G47.33 Obstructive sleep apnea (adult) (pediatric); R13.10 Dysphagia, unspecified; Z79.899 Other long term (current) drug therapy; Z79.82 Long term (current) use of aspirin; I27.20 Pulmonary hypertension, unspecified; G72.9 Myopathy, unspecified

== ENCOUNTER → 2024-03-30 | Outpatient (CLI) | payer MEDICARE, BC ==
[~2024-03-30] MED LIST changes: +BACTDSTA PO; +MUCI600T31 PO; +PANT40TA29 PO; +SENN-52 PO
== END ==
LOC: M CLY 14:51
PROVIDERS: ATTEND Nurse Practitioner Family
DX: J18.9 Pneumonia, unspecified organism (principal)

== ENCOUNTER → 2024-03-30 | Outpatient (REF) | payer MEDICARE, BC ==
[~2024-03-30] MED LIST changes: -ALIG4CAP PO; +ALIG4CAP3 PO; +FERR325T3 PO; +PANT-23 PO; +SENN1TAB85 PO
[2024-03-30 18:08] LABS: BASO % 0.1 % (0.0-1.0); EOS % 0.1 % (0.0-3.0); HEMATOCRIT 32.5 % (42.0-52.0); HEMOGLOBIN 10.8 g/dl (13.5-17.5); LYMPH # 0.5 10^3/uL (1.5-5.0); MEAN CORPUSCULAR HEMOGLOBIN 31.4 pg (27.0-33.0); MEAN CORPUSCULAR HGB CONC 33.2 g/dl (32.0-36.5); MEAN CORPUSCULAR VOLUME 94.5 fl (80.0-96.0); MONO # 0.4 10^3/uL (0.0-0.8); MONO % 2.3 % (2.0-8.0); NEUTROPHILS # 13.9 10^3/uL (1.5-8.5); NEUTROPHILS % 92.3 % (36.0-66.0); PLATELET COUNT, AUTOMATED 219 10^3/uL (150-450); RED BLOOD COUNT 3.44 10^6/uL (4.30-6.10); WHITE BLOOD COUNT 15.1 10^3/uL (4.0-10.0)
[2024-03-30 18:32] LABS: ALKALINE PHOSPHATASE 76 U/L (40-129); ALT/SGPT 33 U/L (7.0-40); AST/SGOT 14 U/L (<34); BILIRUBIN,TOTAL 0.5 MG/DL (0.3-1.2); BLOOD UREA NITROGEN 29 MG/DL (9-23); CALCIUM LEVEL 9.4 MG/DL (8.3-10.6); CARBON DIOXIDE LEVEL 29 MMOL/L (20-31); CHLORIDE LEVEL 102 MMOL/L (98-107); CREATININE FOR GFR 0.99 MG/DL (0.70-1.30); GLOMERULAR FILTRATION RATE > 60.0 (>42); GLUCOSE, FASTING 134 MG/DL (74-106); POTASSIUM SERUM 3.9 MMOL/L (3.5-5.1); SODIUM LEVEL 138 MMOL/L (136-145)
[2024-03-30 18:33] LABS: CHOLESTEROL RISK RATIO 1.79 (<5); HDL CHOLESTEROL 111.7 MG/DL (>40); LDL CHOLESTEROL 77.9 MG/DL (<100); NON-HDL-C 89.3 MG/DL
[2024-03-30 18:35] LABS: FREE T4 1.4 NG/DL (0.89-1.76); THYROID STIMULATING HORMONE 2.493 uIU/ML (0.55-4.78)
[2024-03-30 19:26] LABS: HEMOGLOBIN A1c 6.1 % (4.0-6.0)
== END ==
LOC: M SFHCCLAY 14:36
PROVIDERS: ATTEND Nurse Practitioner Family
DX: J18.9 Pneumonia, unspecified organism (principal); E03.9 Hypothyroidism, unspecified; J84.10 Pulmonary fibrosis, unspecified; E78.00 Pure hypercholesterolemia, unspecified; Z79.899 Other long term (current) drug therapy
CPT/HCPCS: 71046; 80053; 80061; 83036; 84439; 84443; 85025; G0463

== ENCOUNTER → 2024-04-12 | Outpatient (REF) | payer MEDICARE, BC ==
[~2024-04-12] MED LIST changes: +ALIG4CAP PO; -ALIG4CAP3 PO; -FERR325T3 PO; -PANT-23 PO; -SENN1TAB85 PO
[2024-04-12 17:17] LABS: ALBUMIN 3.1 G/DL (3.2-5.2); BILIRUBIN,DIRECT 0.1 MG/DL (<0.4); BILIRUBIN,TOTAL 0.5 MG/DL (0.3-1.2); TOTAL PROTEIN 6.3 G/DL (5.7-8.2)
== END ==
LOC: M LABDRAWC 15:54 → M LAB REF 15:54
PROVIDERS: ATTEND Internal Medicine Pulmonary Disease
DX: J47.9 Bronchiectasis, uncomplicated (principal)

== ENCOUNTER 2024-04-25 13:57 | Inpatient (IN) | payer MEDICARE, BC ==
[~2024-04-25] VITALS: Ht 154.9 cm; Wt 59.6 kg
[~2024-04-25 13:57] MED LIST changes: -ALIG4CAP PO; +ALIG4CAP3 PO
[2024-04-25 14:22] LABS: VENOUS BASE EXCESS 0.6 (-2.0-2.0); VENOUS HCO3 24.9 MMOL/L (23.0-27.0); VENOUS O2 SATURATION 96.9 % (60.0-80.0); VENOUS PARTIAL PRESSURE O2 89.5 mmHg (30.0-50.0); VENOUS PH 7.423 UNITS (7.330-7.430); VENOUS TOTAL CO2 26.1 MMOL/L (24.0-28.0)
[2024-04-25] MEDS: methylPREDNISolone 125MG 2ML VIAL IV ONE (14:24)
[2024-04-25 14:30] LABS: BASO # 0.1 10^3/uL (0.0-0.2); BASO % 0.4 % (0.0-1.0); EOS # 0.1 10^3/uL (0.0-0.5); EOS % 0.8 % (0.0-3.0); HEMATOCRIT 37.9 % (42.0-52.0); HEMOGLOBIN 12.5 g/dl (13.5-17.5); LYMPH # 0.6 10^3/uL (1.5-5.0); LYMPH % 4.6 % (24.0-44.0); MEAN CORPUSCULAR HEMOGLOBIN 31.6 pg (27.0-33.0); MEAN CORPUSCULAR VOLUME 95.9 fl (80.0-96.0); MONO # 0.7 10^3/uL (0.0-0.8); NEUTROPHILS # 10.6 10^3/uL (1.5-8.5); NEUTROPHILS % 85.9 % (36.0-66.0); PLATELET COUNT, AUTOMATED 238 10^3/uL (150-450); RED BLOOD COUNT 3.95 10^6/uL (4.30-6.10); WHITE BLOOD COUNT 12.4 10^3/uL (4.0-10.0)
[2024-04-25] MEDS: IPRATROPIUM 0.5MG/ALBUTEROL 2.5MG INH SOL UD 3ML (DUONEB) NEB ONE (14:31)
[2024-04-25 15:01] LABS: ALBUMIN 3.4 G/DL (3.2-5.2); ALKALINE PHOSPHATASE 110 U/L (40-129); ALT/SGPT 29 U/L (7.0-40); AST/SGOT 17 U/L (<34); BILIRUBIN,DIRECT 0.1 MG/DL (<0.4); BILIRUBIN,TOTAL 0.5 MG/DL (0.3-1.2); BLOOD UREA NITROGEN 31 MG/DL (9-23); CALCIUM LEVEL 9.7 MG/DL (8.3-10.6); CARBON DIOXIDE LEVEL 28 MMOL/L (20-31); CHLORIDE LEVEL 102 MMOL/L (98-107); CREATININE FOR GFR 0.85 MG/DL (0.70-1.30); GLOMERULAR FILTRATION RATE > 60.0 (>42); GLUCOSE, FASTING 125 MG/DL (74-106); POTASSIUM SERUM 3.5 MMOL/L (3.5-5.1); SODIUM LEVEL 140 MMOL/L (136-145)
[2024-04-25 15:03] LABS: THYROID STIMULATING HORMONE 2.131 uIU/ML (0.55-4.78)
[2024-04-25] MEDS ORDERED: ISOVUE-370 76% 100ML VIAL As Ordered ONE (16:02)
[2024-04-25] MEDS ORDERED: BACTDSTA PO (17:53)
[2024-04-25] MEDS ORDERED: PANT-23 PO (17:53)
[2024-04-25] MEDS ORDERED: SENN1TAB85 PO (17:53)
[2024-04-25] MEDS ORDERED: FERR325T3 PO (17:53)
[2024-04-25] MEDS ORDERED: HOME MED LIST COMPLETE! XX SCH (17:55)
[2024-04-25] MEDS ORDERED: ALBUTEROL 90 MCG/ACT 8GM HFA INHALER INH PRN (20:05)
[2024-04-25] MEDS ORDERED: MOM 30ML SUSPENSION UDC PO PRN (20:05)
[2024-04-25] MEDS: OLOPATADINE 0.1% OPHTH SOL 5ML(PATANOL) OU SCH (21:00)
[2024-04-25] MEDS: IPRATROPIUM 0.5MG/ALBUTEROL 2.5MG INH SOL UD 3ML (DUONEB) INH SCH (21:17)
[2024-04-25] MEDS: SYMBICORT 160/4.5MCG INHALER 6GM INH SCH (21:17)
[2024-04-25] MEDS: MONTELUKAST 10 MG TAB PO SCH (21:59)
[2024-04-25] MEDS: SENOKOT S TAB PO SCH (21:59)
[2024-04-25] MEDS: ATORVASTATIN 10 MG TAB PO SCH (21:59)
[2024-04-25] MEDS: PANTOPRAZOLE 40MG TAB (PROTONIX) PO SCH (21:59)
[2024-04-25] MEDS: cefTRIAXone SOD 1 GM in DEXTROSE 5% (D5W) ADV/MINI-BAG 50 ML IV SCH (21:59)
[2024-04-25] MEDS: AZITHROMYCIN 250MG TABLET PO SCH (22:00)
[2024-04-25] MEDS: rOPINIRole 0.25 MG TAB(REQUIP) PO SCH (22:47)
[2024-04-25] MEDS: methylPREDNISolone 125MG 2ML VIAL IV SCH (22:47)
[2024-04-25] MEDS: IPRATROPIUM 0.03% NASAL SPRAY 30 ML (ATROVENT) SCH (23:44)
[2024-04-26 07:23] LABS: HEMATOCRIT 34.5 % (42.0-52.0); HEMOGLOBIN 11.6 g/dl (13.5-17.5); MEAN CORPUSCULAR HGB CONC 33.6 g/dl (32.0-36.5); PLATELET COUNT, AUTOMATED 213 10^3/uL (150-450); RED BLOOD COUNT 3.63 10^6/uL (4.30-6.10); WHITE BLOOD COUNT 8.8 10^3/uL (4.0-10.0)
[2024-04-26] MEDS: LEVOTHYROXINE 50MCG TABLET (0.05MG) PO SCH (07:32)
[2024-04-26 07:53] LABS: ALKALINE PHOSPHATASE 97 U/L (40-129); ALT/SGPT 27 U/L (7.0-40); AST/SGOT 14 U/L (<34); BILIRUBIN,TOTAL 0.4 MG/DL (0.3-1.2); BLOOD UREA NITROGEN 30 MG/DL (9-23); CALCIUM LEVEL 9.4 MG/DL (8.3-10.6); CARBON DIOXIDE LEVEL 29 MMOL/L (20-31); CHLORIDE LEVEL 102 MMOL/L (98-107); CREATININE FOR GFR 0.79 MG/DL (0.70-1.30); GLOMERULAR FILTRATION RATE > 60.0 (>42); GLUCOSE, FASTING 183 MG/DL (74-106); POTASSIUM SERUM 3.8 MMOL/L (3.5-5.1); SODIUM LEVEL 139 MMOL/L (136-145); TOTAL PROTEIN 6.2 G/DL (5.7-8.2)
[2024-04-26] MEDS: FEXOFENADINE 60MG TAB PO SCH (09:54)
[2024-04-26] MEDS: ESCITALOPRAM OXALATE 10 MG TAB (LEXAPRO) PO SCH (09:54)
[2024-04-26] MEDS: ASPIRIN 81MG ENTERIC TABLET PO SCH (09:55)
[2024-04-26] MEDS: VITAMIN D 1,000 INTERNATIONAL UNITS TABLET PO SCH (09:55)
[2024-04-26] MEDS: ASCORBIC ACID 500 MG TAB PO SCH (09:55)
[2024-04-26] MEDS: ENOXAPARIN 40MG/0.4ML SYRINGE (J1650 PER 10MG) SC SCH (09:56)
[2024-04-26] MEDS: VITAMIN B COMPLEX/VIT C CAP PO SCH (12:47)
[2024-04-26 15:38] VITALS: BP 100/66; TEMP 97.9; O2SAT 97
[2024-04-26 19:50] VITALS: BP 105/67; TEMP 98.4; O2SAT 93
[2024-04-26] MEDS: ACETAMINOPHEN 325 MG TAB PO PRN (20:46)
[2024-04-27] MEDS: RAMELTEON 8 MG TAB (ROZEREM) PO PRN (01:01)
[2024-04-27 04:16] VITALS: BP 107/65; TEMP 98.1; O2SAT 95
[2024-04-27 12:00] VITALS: BP 112/67; TEMP 97.7; O2SAT 97
[2024-04-27] MEDS: CEFDINIR 300 MG CAP (OMNICEF) PO SCH (14:45)
[2024-04-27 19:58] VITALS: BP 107/63; TEMP 97.7; O2SAT 98
[2024-04-28] MEDS: methylPREDNISolone 40MG 1ML VIAL IV SCH (01:16)
[2024-04-28 04:06] VITALS: BP 115/70; TEMP 97.9; O2SAT 97
[2024-04-28] MEDS: predniSONE 10MG TAB PO SCH (11:32)
[2024-04-28 12:44] VITALS: BP 121/66; TEMP 98.1; O2SAT 98
[2024-04-28 20:03] VITALS: BP 112/65; TEMP 97.9; O2SAT 94
[2024-04-29 04:33] VITALS: BP 130/75; TEMP 97.9; O2SAT 94
[2024-04-29 06:54] LABS: BASO % 0.1 % (0.0-1.0); EOS % 0.2 % (0.0-3.0); HEMATOCRIT 30.8 % (42.0-52.0); HEMOGLOBIN 10.2 g/dl (13.5-17.5); LYMPH # 1.5 10^3/uL (1.5-5.0); LYMPH % 13.8 % (24.0-44.0); MEAN CORPUSCULAR HEMOGLOBIN 31.3 pg (27.0-33.0); MEAN CORPUSCULAR HGB CONC 33.1 g/dl (32.0-36.5); MEAN CORPUSCULAR VOLUME 94.5 fl (80.0-96.0); MONO % 9.1 % (2.0-8.0); NEUTROPHILS % 74.6 % (36.0-66.0); PLATELET COUNT, AUTOMATED 186 10^3/uL (150-450); RED BLOOD COUNT 3.26 10^6/uL (4.30-6.10); WHITE BLOOD COUNT 10.7 10^3/uL (4.0-10.0)
[2024-04-29 07:24] LABS: BLOOD UREA NITROGEN 40 MG/DL (9-23); CALCIUM LEVEL 8.6 MG/DL (8.3-10.6); CARBON DIOXIDE LEVEL 31 MMOL/L (20-31); CHLORIDE LEVEL 105 MMOL/L (98-107); CREATININE FOR GFR 0.73 MG/DL (0.70-1.30); GLOMERULAR FILTRATION RATE > 60.0 (>42); GLUCOSE, FASTING 107 MG/DL (74-106); POTASSIUM SERUM 3.6 MMOL/L (3.5-5.1); SODIUM LEVEL 142 MMOL/L (136-145)
[2024-04-29 07:28] VITALS: O2SAT 96
[2024-04-29] MEDS: predniSONE 10MG TAB PO SCH (08:34)
[2024-04-30 04:02] VITALS: BP 115/60; TEMP 97.7; O2SAT 97
[2024-04-30 06:23] LABS: BASO % 0.3 % (0.0-1.0); EOS # 0.1 10^3/uL (0.0-0.5); EOS % 1.2 % (0.0-3.0); HEMATOCRIT 31.5 % (42.0-52.0); HEMOGLOBIN 10.3 g/dl (13.5-17.5); LYMPH # 1.5 10^3/uL (1.5-5.0); MEAN CORPUSCULAR HEMOGLOBIN 31.8 pg (27.0-33.0); MEAN CORPUSCULAR HGB CONC 32.7 g/dl (32.0-36.5); MEAN CORPUSCULAR VOLUME 97.2 fl (80.0-96.0); MONO # 0.9 10^3/uL (0.0-0.8); NEUTROPHILS # 8.6 10^3/uL (1.5-8.5); NEUTROPHILS % 74.6 % (36.0-66.0); PLATELET COUNT, AUTOMATED 181 10^3/uL (150-450); RED BLOOD COUNT 3.24 10^6/uL (4.30-6.10); WHITE BLOOD COUNT 11.5 10^3/uL (4.0-10.0)
[2024-04-30 06:51] LABS: BLOOD UREA NITROGEN 34 MG/DL (9-23); CALCIUM LEVEL 8.6 MG/DL (8.3-10.6); CARBON DIOXIDE LEVEL 32 MMOL/L (20-31); CHLORIDE LEVEL 103 MMOL/L (98-107); CREATININE FOR GFR 0.65 MG/DL (0.70-1.30); GLOMERULAR FILTRATION RATE > 60.0 (>42); GLUCOSE, FASTING 92 MG/DL (74-106); POTASSIUM SERUM 3.6 MMOL/L (3.5-5.1); SODIUM LEVEL 140 MMOL/L (136-145)
[2024-04-30 18:42] LABS: HEMATOCRIT 34.6 % (42.0-52.0); HEMOGLOBIN 11.6 g/dl (13.5-17.5); MEAN CORPUSCULAR HEMOGLOBIN 32.1 pg (27.0-33.0); MEAN CORPUSCULAR HGB CONC 33.5 g/dl (32.0-36.5); MEAN CORPUSCULAR VOLUME 95.8 fl (80.0-96.0); PLATELET COUNT, AUTOMATED 210 10^3/uL (150-450); RED BLOOD COUNT 3.61 10^6/uL (4.30-6.10); WHITE BLOOD COUNT 11.1 10^3/uL (4.0-10.0)
[2024-04-30 19:12] LABS: BLOOD UREA NITROGEN 29 MG/DL (9-23); CALCIUM LEVEL 8.2 MG/DL (8.3-10.6); CARBON DIOXIDE LEVEL 32 MMOL/L (20-31); CHLORIDE LEVEL 101 MMOL/L (98-107); CREATININE FOR GFR 0.54 MG/DL (0.70-1.30); GLOMERULAR FILTRATION RATE > 60.0 (>42); GLUCOSE, FASTING 189 MG/DL (74-106); POTASSIUM SERUM 3.7 MMOL/L (3.5-5.1); SODIUM LEVEL 139 MMOL/L (136-145)
[2024-04-30 19:26] LABS: URINE STREP PNEUMONIAE ANTIGEN NOT DETECTED (NOT DETECT)
[2024-05-01 03:54] VITALS: BP 146/74; TEMP 97.7; O2SAT 96
[2024-05-01 06:59] LABS: BASO # 0.1 10^3/uL (0.0-0.2); BASO % 0.4 % (0.0-1.0); EOS # 0.2 10^3/uL (0.0-0.5); EOS % 1.6 % (0.0-3.0); HEMATOCRIT 33.6 % (42.0-52.0); LYMPH # 1.8 10^3/uL (1.5-5.0); LYMPH % 14.9 % (24.0-44.0); MEAN CORPUSCULAR HEMOGLOBIN 30.9 pg (27.0-33.0); MEAN CORPUSCULAR HGB CONC 32.7 g/dl (32.0-36.5); MEAN CORPUSCULAR VOLUME 94.4 fl (80.0-96.0); MONO # 0.9 10^3/uL (0.0-0.8); NEUTROPHILS # 8.6 10^3/uL (1.5-8.5); NEUTROPHILS % 71.5 % (36.0-66.0); PLATELET COUNT, AUTOMATED 203 10^3/uL (150-450); RED BLOOD COUNT 3.56 10^6/uL (4.30-6.10); WHITE BLOOD COUNT 12.1 10^3/uL (4.0-10.0)
[2024-05-01 07:38] LABS: BLOOD UREA NITROGEN 29 MG/DL (9-23); CALCIUM LEVEL 8.4 MG/DL (8.3-10.6); CARBON DIOXIDE LEVEL 31 MMOL/L (20-31); CHLORIDE LEVEL 102 MMOL/L (98-107); CREATININE FOR GFR 0.63 MG/DL (0.70-1.30); GLOMERULAR FILTRATION RATE > 60.0 (>42); GLUCOSE, FASTING 85 MG/DL (74-106); POTASSIUM SERUM 3.5 MMOL/L (3.5-5.1); SODIUM LEVEL 141 MMOL/L (136-145)
[2024-05-01 08:48] VITALS: BP 132/80
[2024-05-01] MEDS ORDERED: PRED10TA2 PO (15:39)
== END 2024-05-01 18:00 | disposition home health service (06) | DRG 196 ==
LOC: M ED 13:57 → EDBD 13:57 → M ED INP 20:02 → M MS5PR 04-26 15:30
PROVIDERS: ADMIT Student in an Organized Health Care Education/Training Program; ATTEND Internal Medicine
DX: J84.9 Interstitial pulmonary disease, unspecified (principal); J15.69 Pneumonia due to other Gram-negative bacteria; J96.11 Chronic respiratory failure with hypoxia; I50.30 Unspecified diastolic (congestive) heart failure; I10 Essential (primary) hypertension; J45.909 Unspecified asthma, uncomplicated; I27.20 Pulmonary hypertension, unspecified; E03.9 Hypothyroidism, unspecified; K21.9 Gastro-esophageal reflux disease without esophagitis; G47.33 Obstructive sleep apnea (adult) (pediatric); Z79.899 Other long term (current) drug therapy; Z79.82 Long term (current) use of aspirin; K44.9 Diaphragmatic hernia without obstruction or gangrene; Z86.718 Personal history of other venous thrombosis and embolism; F32.A Depression, unspecified; Z98.41 Cataract extraction status, right eye; Z98.42 Cataract extraction status, left eye

== ENCOUNTER → 2024-05-15 | Outpatient (REF) | payer MEDICARE, BC ==
[~2024-05-15] MED LIST changes: +FERR325T3 PO; +PANT-23 PO; +SENN1TAB85 PO; +TRAM-533 PO; +abdominal binder
== END ==
LOC: M SFHCCLAY 15:00
PROVIDERS: ATTEND Nurse Practitioner Family
DX: J84.10 Pulmonary fibrosis, unspecified (principal)

== ENCOUNTER → 2024-05-16 | Outpatient (REF) | payer MEDICARE, BC ==
[2024-05-16 17:45] LABS: FREE T4 1.42 NG/DL (0.89-1.76); THYROID STIMULATING HORMONE 2.498 uIU/ML (0.55-4.78)
[2024-05-16 17:52] LABS: ALBUMIN 3.4 G/DL (3.2-5.2); ALKALINE PHOSPHATASE 94 U/L (40-129); ALT/SGPT 44 U/L (7.0-40); AST/SGOT 25 U/L (<34); BILIRUBIN,TOTAL 0.6 MG/DL (0.3-1.2); BLOOD UREA NITROGEN 31 MG/DL (9-23); CALCIUM LEVEL 9.4 MG/DL (8.3-10.6); CARBON DIOXIDE LEVEL 26 MMOL/L (20-31); CHLORIDE LEVEL 100 MMOL/L (98-107); CREATININE FOR GFR 0.87 MG/DL (0.70-1.30); GLOMERULAR FILTRATION RATE > 60.0 (>42); GLUCOSE, FASTING 189 MG/DL (74-106); SODIUM LEVEL 138 MMOL/L (136-145); TOTAL PROTEIN 6.6 G/DL (5.7-8.2)
== END ==
LOC: M SFHCCLAY 13:42
PROVIDERS: ATTEND Nurse Practitioner Family
DX: E03.9 Hypothyroidism, unspecified (principal); J84.10 Pulmonary fibrosis, unspecified

== ENCOUNTER 2024-05-17 15:02 | Emergency (ER) | payer BC, MEDICARE ==
[~2024-05-17] VITALS: Ht 154.9 cm; Wt 59.1 kg
[~2024-05-17 15:02] MED LIST changes: -TRAM-533 PO; -abdominal binder
[2024-05-17 15:24] VITALS: TEMP 97.8
[2024-05-17 16:25] LABS: BASO % 0.1 % (0.0-1.0); EOS % 0.3 % (0.0-3.0); HEMATOCRIT 37.1 % (42.0-52.0); HEMOGLOBIN 12.2 g/dl (13.5-17.5); LYMPH # 0.5 10^3/uL (1.5-5.0); LYMPH % 3.4 % (24.0-44.0); MEAN CORPUSCULAR HEMOGLOBIN 31.3 pg (27.0-33.0); MEAN CORPUSCULAR HGB CONC 32.9 g/dl (32.0-36.5); MEAN CORPUSCULAR VOLUME 95.1 fl (80.0-96.0); MONO # 0.4 10^3/uL (0.0-0.8); MONO % 2.5 % (2.0-8.0); NEUTROPHILS # 13.5 10^3/uL (1.5-8.5); NEUTROPHILS % 92.3 % (36.0-66.0); PLATELET COUNT, AUTOMATED 213 10^3/uL (150-450); WHITE BLOOD COUNT 14.6 10^3/uL (4.0-10.0)
[2024-05-17 16:38] LABS: INR 0.91; PROTHROMBIN TIME 12.6 SECONDS (12.5-14.5)
[2024-05-17 16:49] LABS: ALBUMIN 3.4 G/DL (3.2-5.2); ALKALINE PHOSPHATASE 93 U/L (40-129); ALT/SGPT 41 U/L (7.0-40); AST/SGOT 23 U/L (<34); BILIRUBIN,TOTAL 0.7 MG/DL (0.3-1.2); BLOOD UREA NITROGEN 29 MG/DL (9-23); CALCIUM LEVEL 9.1 MG/DL (8.3-10.6); CARBON DIOXIDE LEVEL 29 MMOL/L (20-31); CHLORIDE LEVEL 102 MMOL/L (98-107); CREATININE FOR GFR 0.89 MG/DL (0.70-1.30); GLOMERULAR FILTRATION RATE > 60.0 (>42); GLUCOSE, FASTING 153 MG/DL (74-106); POTASSIUM SERUM 4.2 MMOL/L (3.5-5.1); SODIUM LEVEL 139 MMOL/L (136-145); TOTAL PROTEIN 6.5 G/DL (5.7-8.2)
[2024-05-17] MEDS ORDERED: ISOVUE-370 76% 100ML VIAL As Ordered ONE (16:49)
[2024-05-17] MEDS ORDERED: TRAM-533 PO (18:32)
[2024-05-17] MEDS ORDERED: abdominal binder (18:41)
[2024-05-17 20:00] VITALS: O2SAT 99
[2024-05-17 20:12] VITALS: BP 134/79
[2024-05-17] MEDS: traMADol 50 MG TAB (HOME DOSE PACK) PO ONE (21:42)
== END 2024-05-17 22:05 | disposition home or self-care (01) ==
LOC: M ED 15:02 → EDBD 15:02 → M ED 22:05
DX: M79.81 Nontraumatic hematoma of soft tissue (principal); K44.9 Diaphragmatic hernia without obstruction or gangrene; I25.84 Coronary atherosclerosis due to calcified coronary lesion; I45.10 Unspecified right bundle-branch block; K21.9 Gastro-esophageal reflux disease without esophagitis; G47.30 Sleep apnea, unspecified; E03.9 Hypothyroidism, unspecified; Z86.718 Personal history of other venous thrombosis and embolism; Z79.52 Long term (current) use of systemic steroids; Z79.82 Long term (current) use of aspirin; Z79.2 Long term (current) use of antibiotics; Z79.899 Other long term (current) drug therapy
CPT/HCPCS: 36415; 74177; 80047; 80053; 85025; 85610; 86850; 86900; 86901; 93005; 99285; Q9967

== ENCOUNTER → 2024-06-15 | Outpatient (REF) | payer MEDICARE, BC ==
[~2024-06-15] MED LIST changes: +TRAM-533 PO; +abdominal binder
[2024-06-15 17:23] LABS: APPEARANCE, URINE CLOUDY (CLEAR); BACTERIA, URINE AUTO NEGATIVE (NEGATIVE); BILIRUBIN, URINE AUTO NEGATIVE (NEGATIVE); BLOOD, URINE BLOOD NEGATIVE (NEGATIVE); COLOR, URINE AMBER (YELLOW); GLUCOSE, URINE (UA) AUTO NEGATIVE (NEGATIVE); KETONE, URINE AUTO NEGATIVE (NEGATIVE); LEUKOCYTE ESTERASE, URINE AUTO NEGATIVE (NEGATIVE); NITRITE, URINE AUTO NEGATIVE (NEGATIVE); PROTEIN, URINE AUTO NEGATIVE (NEGATIVE); RBC, URINE AUTO 0 /HPF (0-3); SPECIFIC GRAVITY URINE AUTO 1.013 (1.002-1.035); SQUAMOUS EPITHELIAL CELL UR AU 0 /HPF (0-6); UROBILINOGEN, URINE AUTO 0.2 mg/dL (0.0-2.0); WBC, URINE AUTO 2 /HPF (0-3)
[2024-06-15 18:27] LABS: BASO # 0.1 10^3/uL (0.0-0.2); BASO % 0.5 % (0.0-1.0); EOS # 0.3 10^3/uL (0.0-0.5); EOS % 3.5 % (0.0-3.0); HEMATOCRIT 36.7 % (42.0-52.0); HEMOGLOBIN 11.9 g/dl (13.5-17.5); LYMPH % 10.6 % (24.0-44.0); MEAN CORPUSCULAR HEMOGLOBIN 31.2 pg (27.0-33.0); MEAN CORPUSCULAR HGB CONC 32.4 g/dl (32.0-36.5); MEAN CORPUSCULAR VOLUME 96.3 fl (80.0-96.0); MONO # 1.3 10^3/uL (0.0-0.8); MONO % 13.1 % (2.0-8.0); NEUTROPHILS # 6.9 10^3/uL (1.5-8.5); NEUTROPHILS % 70.4 % (36.0-66.0); PLATELET COUNT, AUTOMATED 284 10^3/uL (150-450); RED BLOOD COUNT 3.81 10^6/uL (4.30-6.10); WHITE BLOOD COUNT 9.9 10^3/uL (4.0-10.0)
[2024-06-15 18:43] LABS: ALBUMIN 3.2 G/DL (3.2-5.2); ALKALINE PHOSPHATASE 86 U/L (40-129); ALT/SGPT 27 U/L (7.0-40); AST/SGOT 25 U/L (<34); BILIRUBIN,TOTAL 0.5 MG/DL (0.3-1.2); BLOOD UREA NITROGEN 17 MG/DL (9-23); CARBON DIOXIDE LEVEL 29 MMOL/L (20-31); CHLORIDE LEVEL 100 MMOL/L (98-107); CREATININE FOR GFR 0.93 MG/DL (0.70-1.30); GLOMERULAR FILTRATION RATE > 60.0 (>42); GLUCOSE, FASTING 131 MG/DL (74-106); POTASSIUM SERUM 4.1 MMOL/L (3.5-5.1); SODIUM LEVEL 137 MMOL/L (136-145); TOTAL PROTEIN 6.7 G/DL (5.7-8.2)
== END ==
LOC: M SFHCCLAY 13:56
PROVIDERS: ATTEND Family Medicine
DX: R35.0 Frequency of micturition (principal); R53.83 Other fatigue

== ENCOUNTER → 2024-06-28 | Outpatient (REF) | payer MEDICARE, BC | LOC: M LAB REF 17:04 | PROVIDERS: ATTEND Internal Medicine Pulmonary Disease | DX: J47.9 Bronchiectasis, uncomplicated (principal) ==

== ENCOUNTER 2024-07-23 16:02 | Emergency (ER) | payer MEDICARE, BC ==
[~2024-07-23] VITALS: Ht 154.9 cm; Wt 63.3 kg
[2024-07-23] MEDS: ACETAMINOPHEN 500 MG TAB PO ONE (18:25)
[2024-07-23 18:32] LABS: VENOUS HCO3 29.6 MMOL/L (23.0-27.0); VENOUS O2 SATURATION 98.5 % (60.0-80.0); VENOUS PARTIAL PRESSURE CO2 43.6 mmHg (38.0-50.0); VENOUS PH 7.449 UNITS (7.330-7.430); VENOUS TOTAL CO2 30.9 MMOL/L (24.0-28.0)
[2024-07-23 18:38] LABS: BASO % 0.1 % (0.0-1.0); EOS % 0.1 % (0.0-3.0); HEMATOCRIT 35.9 % (42.0-52.0); HEMOGLOBIN 11.7 g/dl (13.5-17.5); LYMPH # 0.4 10^3/uL (1.5-5.0); LYMPH % 3.7 % (24.0-44.0); MEAN CORPUSCULAR HEMOGLOBIN 30.1 pg (27.0-33.0); MEAN CORPUSCULAR HGB CONC 32.6 g/dl (32.0-36.5); MEAN CORPUSCULAR VOLUME 92.3 fl (80.0-96.0); MONO # 0.4 10^3/uL (0.0-0.8); MONO % 3.5 % (2.0-8.0); NEUTROPHILS # 10.8 10^3/uL (1.5-8.5); NEUTROPHILS % 91.7 % (36.0-66.0); PLATELET COUNT, AUTOMATED 205 10^3/uL (150-450); RED BLOOD COUNT 3.89 10^6/uL (4.30-6.10); WHITE BLOOD COUNT 11.8 10^3/uL (4.0-10.0)
[2024-07-23 18:52] LABS: PROTHROMBIN TIME 13.5 SECONDS (12.5-14.5)
[2024-07-23 19:15] LABS: CK-MB VALUE MASS 2.1 NG/ML (<3.6)
[2024-07-23 19:17] LABS: ALBUMIN 3.5 G/DL (3.2-5.2); ALKALINE PHOSPHATASE 73 U/L (40-129); ALT/SGPT 23 U/L (7.0-40); AST/SGOT 18 U/L (<34); BILIRUBIN,DIRECT 0.2 MG/DL (<0.4); BILIRUBIN,TOTAL 0.7 MG/DL (0.3-1.2); BLOOD UREA NITROGEN 30 MG/DL (9-23); CALCIUM LEVEL 9.3 MG/DL (8.3-10.6); CARBON DIOXIDE LEVEL 30 MMOL/L (20-31); CHLORIDE LEVEL 101 MMOL/L (98-107); CREATININE FOR GFR 0.81 MG/DL (0.70-1.30); GLOMERULAR FILTRATION RATE > 60.0 (>42); GLUCOSE, FASTING 154 MG/DL (74-106); POTASSIUM SERUM 3.7 MMOL/L (3.5-5.1); SODIUM LEVEL 138 MMOL/L (136-145); TOTAL PROTEIN 6.5 G/DL (5.7-8.2)
[2024-07-23 19:18] LABS: THYROID STIMULATING HORMONE 1.177 uIU/ML (0.55-4.78); THYROXINE (T4) 5.9 UG/DL (4.5-10.9)
[2024-07-23 19:19] LABS: CPK CREATINE PHOSPHOKINASE 62 U/L (46-171); MB/CK RELATIVE INDEX 3.38 (< OR =4)
[2024-07-23 20:11] VITALS: BP 139/80; TEMP 96.2; O2SAT 99
[2024-07-30] MEDS ORDERED: MORP20SO PO (15:26)
[2024-08-03] MEDS ORDERED: MORP20SO PO (10:38)
== END 2024-07-23 20:22 | disposition home or self-care (01) ==
LOC: M ED 16:02
DX: J84.9 Interstitial pulmonary disease, unspecified (principal); J45.909 Unspecified asthma, uncomplicated; I49.1 Atrial premature depolarization; I45.10 Unspecified right bundle-branch block; I45.81 Long QT syndrome; I10 Essential (primary) hypertension; K21.9 Gastro-esophageal reflux disease without esophagitis; E03.9 Hypothyroidism, unspecified; Z79.52 Long term (current) use of systemic steroids; Z79.82 Long term (current) use of aspirin; Z79.899 Other long term (current) drug therapy; Z79.02 Long term (current) use of antithrombotics/antiplatelets
CPT/HCPCS: 36415; 71045; 80048; 80076; 82550; 82553; 82803; 83605; 83880; 84436; 84443; 84484; 85025; 85610; 87040; 87486; 87581; 87633; 87798; 93005; 93041; 94760; 99285; G0463

== ENCOUNTER → 2024-07-23 | Outpatient (CLI) | payer MEDICARE, BC ==
[~2024-07-23] VITALS: Ht 154.9 cm; Wt 62.3 kg
[2024-07-23 15:26] VITALS: BP 113/76; O2SAT 99
== END ==
LOC: M PAL 14:41
PROVIDERS: ATTEND Physician Assistant
DX: Z51.5 Encounter for palliative care (principal); J84.89 Other specified interstitial pulmonary diseases; Z99.81 Dependence on supplemental oxygen; Z79.891 Long term (current) use of opiate analgesic

== ENCOUNTER → 2024-08-13 | Outpatient (CLI) | payer MEDICARE, BC ==
[~2024-08-13] MED LIST changes: -GALZ25CA PO; +MORP20SO PO; +ZINC25CA2 PO
== END ==
LOC: M PAL 03:30
PROVIDERS: ATTEND Physician Assistant
DX: Z51.5 Encounter for palliative care (principal); Z99.81 Dependence on supplemental oxygen; J84.9 Interstitial pulmonary disease, unspecified; Z79.891 Long term (current) use of opiate analgesic; Z79.899 Other long term (current) drug therapy; Z79.82 Long term (current) use of aspirin; Z79.52 Long term (current) use of systemic steroids

== ENCOUNTER → 2024-10-25 | Outpatient (CLI) | payer MEDICARE, BC ==
[~2024-10-25] MED LIST changes: +CVS10CAP8 PO; -MELA10CA2 PO
== END ==
LOC: M PAL 15:02
PROVIDERS: ATTEND Physician Assistant
DX: Z51.5 Encounter for palliative care (principal); J84.9 Interstitial pulmonary disease, unspecified; Z99.81 Dependence on supplemental oxygen; R06.02 Shortness of breath; Z79.891 Long term (current) use of opiate analgesic; Z79.899 Other long term (current) drug therapy; Z79.82 Long term (current) use of aspirin; Z79.02 Long term (current) use of antithrombotics/antiplatelets

== ENCOUNTER → 2024-11-08 | Outpatient (CLI) | payer MEDICARE, BC | LOC: M PAL 13:27 | PROVIDERS: ATTEND Physician Assistant | DX: Z51.5 Encounter for palliative care (principal); J84.170 Interstitial lung disease with progressive fibrotic phenotype in diseases classified elsewhere; Z99.81 Dependence on supplemental oxygen; Z91.89 Other specified personal risk factors, not elsewhere classified; Z79.891 Long term (current) use of opiate analgesic ==

== ENCOUNTER → 2024-12-11 | Outpatient (CLI) | payer MEDICARE, BC | LOC: M PAL 14:53 | PROVIDERS: ATTEND Physician Assistant | DX: Z51.5 Encounter for palliative care (principal); J84.09 Other alveolar and parieto-alveolar conditions; Z99.81 Dependence on supplemental oxygen; Z79.891 Long term (current) use of opiate analgesic; Z79.899 Other long term (current) drug therapy; Z79.82 Long term (current) use of aspirin; Z79.02 Long term (current) use of antithrombotics/antiplatelets ==

== ENCOUNTER → 2024-12-25 | Outpatient (REF) | payer MEDICARE, BC ==
[2024-12-25 13:02] LABS: PLATELET COUNT, AUTOMATED 255 10^3/uL (150-450)
[2024-12-25 13:15] LABS: ALT/SGPT 28.0 U/L (7.0-40); AST/SGOT 22.0 U/L (<34); CALCIUM LEVEL 9.1 MG/DL (8.3-10.6); CARBON DIOXIDE LEVEL 31.0 MMOL/L (20-31); CHLORIDE LEVEL 102.0 MMOL/L (98-107); CREATININE FOR GFR 0.84 MG/DL (0.70-1.30); GLOMERULAR FILTRATION RATE 89.8 (>42); POTASSIUM SERUM 3.4 MMOL/L (3.5-5.1); SODIUM LEVEL 142.0 MMOL/L (136-145)
[2024-12-25 13:18] LABS: FREE T4 1.34 NG/DL (0.89-1.76)
== END ==
LOC: M LAB REF 12:38 → M LABDRAWC 12:38
PROVIDERS: ATTEND Internal Medicine Pulmonary Disease
DX: J47.9 Bronchiectasis, uncomplicated (principal); Z79.899 Other long term (current) drug therapy

== ENCOUNTER → 2025-01-03 | Outpatient (CLI) | payer MEDICARE, BC | LOC: M SOG 07:23 | PROVIDERS: ATTEND Orthopaedic Surgery | DX: M25.571 Pain in right ankle and joints of right foot (principal) ==

== ENCOUNTER → 2025-01-14 | Outpatient (CLI) | payer MEDICARE, BC | LOC: M PAL 14:26 | PROVIDERS: ATTEND Physician Assistant | DX: Z51.5 Encounter for palliative care (principal); J84.9 Interstitial pulmonary disease, unspecified; Z99.81 Dependence on supplemental oxygen; R06.09 Other forms of dyspnea; Z79.891 Long term (current) use of opiate analgesic; Z79.899 Other long term (current) drug therapy; Z79.82 Long term (current) use of aspirin; Z79.02 Long term (current) use of antithrombotics/antiplatelets; Z79.83 Long term (current) use of bisphosphonates ==

== ENCOUNTER → 2025-01-22 | Outpatient (CLI) | payer MEDICARE, BC | LOC: M SOG 07:28 | PROVIDERS: ATTEND Orthopaedic Surgery | DX: S92.031A Displaced avulsion fracture of tuberosity of right calcaneus, initial encounter for closed fracture (principal) ==

== ENCOUNTER → 2025-03-05 | Outpatient (CLI) | payer MEDICARE, BC | LOC: M SOG 08:33 | PROVIDERS: ATTEND Orthopaedic Surgery | DX: S92.031D Displaced avulsion fracture of tuberosity of right calcaneus, subsequent encounter for fracture with routine healing (principal); M19.071 Primary osteoarthritis, right ankle and foot ==

== ENCOUNTER → 2025-03-11 | Outpatient (CLI) | payer MEDICARE, BC ==
[~2025-03-11] MED LIST changes: -BACTDSTA PO; +SULF-8 PO
== END ==
LOC: M PAL 13:31
PROVIDERS: ATTEND Physician Assistant
DX: Z51.5 Encounter for palliative care (principal); J84.9 Interstitial pulmonary disease, unspecified; Z99.81 Dependence on supplemental oxygen; R06.02 Shortness of breath; Z79.891 Long term (current) use of opiate analgesic; Z79.899 Other long term (current) drug therapy; Z79.82 Long term (current) use of aspirin; Z79.02 Long term (current) use of antithrombotics/antiplatelets; Z79.83 Long term (current) use of bisphosphonates

== ENCOUNTER → 2025-04-01 | Outpatient (CLI) | payer MEDICARE, BC | LOC: M PAL 14:13 | PROVIDERS: ATTEND Physician Assistant | DX: Z51.5 Encounter for palliative care (principal); Z66 Do not resuscitate; J84.9 Interstitial pulmonary disease, unspecified; R06.02 Shortness of breath; Z99.81 Dependence on supplemental oxygen; Z79.891 Long term (current) use of opiate analgesic; Z79.899 Other long term (current) drug therapy; Z79.82 Long term (current) use of aspirin; Z79.02 Long term (current) use of antithrombotics/antiplatelets; Z79.83 Long term (current) use of bisphosphonates ==

== ENCOUNTER 2025-04-09 13:43 | Observation (INO) | payer MEDICARE, BC ==
[~2025-04-09] VITALS: Ht 154.9 cm; Wt 65.9 kg
[2025-04-09 14:24] LABS: BASO # 0.1 10^3/uL (0.0-0.2); BASO % 0.5 % (0.0-1.0); EOS # 0.3 10^3/uL (0.0-0.5); EOS % 2.8 % (0.0-3.0); LYMPH # 0.5 10^3/uL (1.5-5.0); LYMPH % 5.5 % (24.0-44.0); MONO # 1.0 10^3/uL (0.0-0.8); MONO % 10.8 % (2.0-8.0); NEUTROPHILS # 7.6 10^3/uL (1.5-8.5); NEUTROPHILS % 80.0 % (36.0-66.0); PLATELET COUNT, AUTOMATED 195 10^3/uL (150-450)
[2025-04-09] MEDS ORDERED: NS (Normal Saline) 0.9% 1,000 ML IV ONE (14:25)
[2025-04-09] MEDS ORDERED: SUCR1TAB56 PO (14:29)
[2025-04-09 14:40] LABS: ALT/SGPT 23.0 U/L (7.0-40); AST/SGOT 39.0 U/L (<34); CALCIUM LEVEL 8.2 MG/DL (8.3-10.6); CARBON DIOXIDE LEVEL 30.0 MMOL/L (20-31); CHLORIDE LEVEL 102.0 MMOL/L (98-107); CREATININE FOR GFR 0.93 MG/DL (0.70-1.30); GLOMERULAR FILTRATION RATE 84.1 (>42); POTASSIUM SERUM 3.5 MMOL/L (3.5-5.1); SODIUM LEVEL 140.0 MMOL/L (136-145)
[2025-04-09 14:41] LABS: CK-MB VALUE MASS 1.1 NG/ML (<3.6)
[2025-04-09 14:44] LABS: CPK CREATINE PHOSPHOKINASE 137.0 U/L (46-171); MB/CK RELATIVE INDEX 0.8 (< OR =4)
[2025-04-09] MEDS ORDERED: ISOVUE-370 76% 100 ML VIAL As Ordered ONE (14:55)
[2025-04-09] MEDS: ACETAMINOPHEN 325 MG TAB PO ONE (15:12)
[2025-04-09] MEDS: PIPERACILLIN/TAZOBACTAM SOD 4.5 GM in DEXTROSE 5% (D5W) ADV/MINI-BAG 50 ML IV ONE (15:15)
[2025-04-09 15:25] LABS: KETONE, URINE AUTO RFX NEGATIVE (NEGATIVE); LEUKOCYTE ESTERASE UR AUTO RFX NEGATIVE (NEGATIVE); MUCUS, URINE RFX SMALL (NEGATIVE); NITRITE, URINE AUTO RFX NEGATIVE (NEGATIVE); RBC, URINE AUTO RFX 1 /HPF (0-3); SQUAM EPITHELIAL CELL UR AURFX 0 /HPF (0-6); WBC, URINE AUTO RFX 0 /HPF (0-3)
[2025-04-09 15:42] LABS: CPK CREATINE PHOSPHOKINASE 130.0 U/L (46-171)
[2025-04-09 15:43] LABS: CK-MB VALUE MASS 1.1 NG/ML (<3.6); MB/CK RELATIVE INDEX 0.84 (< OR =4)
[2025-04-09] MEDS: VANCOMYCIN HCL 1,000 MG, VIAL MATE ADAPTER 1 EACH in NS 250 ML IV ONE (16:46)
[2025-04-09] MEDS: NS (Normal Saline) 0.9% 1,000 ML IV SCH (16:46)
[2025-04-09] MEDS ORDERED: ALBU2.5V10 INH (16:54)
[2025-04-09] MEDS ORDERED: PANT40TA29 PO (16:54)
[2025-04-09] MEDS ORDERED: PRED5TA PO (16:54)
[2025-04-09] MEDS ORDERED: AZIT500T5 PO (16:58)
[2025-04-09] MEDS ORDERED: HOME MED LIST COMPLETE! XX SCH (17:00)
[2025-04-09 17:44] LABS: ABG BASE EXCESS 6.7 (-2.0-2.0); ABG HCO3 31.8 MMOL/L (22.0-26.0); ABG O2 SATURATION 98.1 % (95.0-99.0); ABG PARTIAL PRESSURE CO2 47.0 mmHg (35.0-45.0); ABG PARTIAL PRESSURE O2 127.7 mmHg (75.0-100.0); ABG STANDARD HCO3 30.6 MMOL/L. (22.0-26.0); ABG TOTAL CO2 33.2 MMOL/L (23.0-31.0); ABG pH (ARTERIAL) 7.448 UNITS (7.350-7.450)
[2025-04-09] MEDS ORDERED: ACETAMINOPHEN 325 MG TAB PO PRN (18:35)
[2025-04-09] MEDS ORDERED: MAALOX 30 ML SUSP *UDC PO PRN (18:35)
[2025-04-09] MEDS ORDERED: IPRATROPIUM 0.5 MG/ALBUTEROL 2.5 MG INH SOL UD 3 ML NEB PRN (18:40)
[2025-04-09] MEDS ORDERED: ONDANSETRON 4MG/2ML VIAL IV PRN (18:40)
[2025-04-09] MEDS ORDERED: MORPHINE SULFATE ORAL SOLN 10 MG/5 ML PO PRN (18:40)
[2025-04-09] MEDS: predniSONE 20 MG TAB PO SCH (19:41)
[2025-04-09] MEDS: LR 1,000 ML IV SCH (19:41)
[2025-04-09] MEDS: IPRATROPIUM 0.5 MG/ALBUTEROL 2.5 MG INH SOL UD 3 ML NEB SCH (20:24)
[2025-04-09] MEDS: SYMBICORT 160/4.5MCG INHALER 6GM INH SCH (20:25)
[2025-04-09] MEDS: MONTELUKAST 10 MG TAB PO SCH (22:23)
[2025-04-09 23:25] VITALS: BP 140/64; TEMP 97.2; O2SAT 97
[2025-04-09 23:36] VITALS: O2SAT 97
[2025-04-10 03:34] VITALS: BP 124/67; TEMP 98.1; O2SAT 97
[2025-04-10 06:46] LABS: PLATELET COUNT, AUTOMATED 205 10^3/uL (150-450)
[2025-04-10 07:16] LABS: CALCIUM LEVEL 8.9 MG/DL (8.3-10.6); CARBON DIOXIDE LEVEL 33 MMOL/L (20-31); CHLORIDE LEVEL 98 MMOL/L (98-107); CREATININE FOR GFR 0.81 MG/DL (0.70-1.30); GLOMERULAR FILTRATION RATE > 90.0 (>42); PHOSPHORUS LEVEL 3.9 MG/DL (2.4-5.1); POTASSIUM SERUM 3.5 MMOL/L (3.5-5.1); SODIUM LEVEL 140 MMOL/L (136-145)
[2025-04-10 08:00] VITALS: BP 130/72; TEMP 97.4; O2SAT 96
[2025-04-10 08:15] LABS: MAGNESIUM LEVEL 2.0 MG/DL (1.8-2.4)
[2025-04-10] MEDS: HEPARIN SOD 5000 UNITS/ML 1 ML VIAL/SYRINGE SC SCH (09:25)
[2025-04-10] MEDS: SODIUM CHLORIDE HYPERTONIC 3% 4ML NEB SOL INH SCH (11:55)
[2025-04-10 12:00] VITALS: BP 130/90; TEMP 98.1; O2SAT 100
[2025-04-10 17:00] VITALS: BP 126/67; TEMP 98.1; O2SAT 97
[2025-04-10] MEDS: MOM 30 ML SUSPENSION UDC PO PRN (17:46)
[2025-04-10 20:05] VITALS: BP 118/65; TEMP 98.2; O2SAT 96
[2025-04-10 23:59] VITALS: BP 128/59; TEMP 98.5; O2SAT 96
[2025-04-11 04:22] VITALS: BP 124/72; TEMP 98.7; O2SAT 96
[2025-04-11 07:13] LABS: PLATELET COUNT, AUTOMATED 199 10^3/uL (150-450)
[2025-04-11] MEDS: SODIUM CHLORIDE HYPERTONIC 3% 4ML NEB SOL INH SCH (07:48)
[2025-04-11 08:01] LABS: CALCIUM LEVEL 8.9 MG/DL (8.3-10.6); CARBON DIOXIDE LEVEL 33.0 MMOL/L (20-31); CHLORIDE LEVEL 101.0 MMOL/L (98-107); CREATININE FOR GFR 0.87 MG/DL (0.70-1.30); GLOMERULAR FILTRATION RATE 88.3 (>42); PHOSPHORUS LEVEL 2.4 MG/DL (2.4-5.1); POTASSIUM SERUM 2.9 MMOL/L (3.5-5.1); SODIUM LEVEL 144.0 MMOL/L (136-145)
[2025-04-11 08:10] VITALS: BP 136/67; TEMP 98.8; O2SAT 95
[2025-04-11] MEDS: POTASSIUM CHLORIDE 10MEQ SR TABLET PO ONE ×2 (09:14→12:22)
[2025-04-11] MEDS: KCL 10MEQ/100ML SWI (KRUN) 10 MEQ in IV 1 EA IV SCH (09:15)
[2025-04-11 09:48] LABS: MAGNESIUM LEVEL 2.0 MG/DL (1.8-2.4)
[2025-04-11] MEDS: K-PHOS ORIGINAL (POT.ACID PHOSPHATE) 500 MG TAB PO SCH (10:25)
[2025-04-11 12:48] VITALS: BP 170/87; TEMP 98.3; O2SAT 95
[2025-04-11 13:15] VITALS: BP 164/85
[2025-04-11 15:19] LABS: CALCIUM LEVEL 9.0 MG/DL (8.3-10.6); CARBON DIOXIDE LEVEL 32 MMOL/L (20-31); CHLORIDE LEVEL 105 MMOL/L (98-107); CREATININE FOR GFR 0.79 MG/DL (0.70-1.30); GLOMERULAR FILTRATION RATE > 90.0 (>42); POTASSIUM SERUM 4.0 MMOL/L (3.5-5.1); SODIUM LEVEL 145 MMOL/L (136-145)
[2025-04-11] MEDS ORDERED: POTA-298 PO (15:46)
[2025-04-11] MEDS ORDERED: PRED20TA PO (15:55)
[2025-04-11 16:14] VITALS: BP 148/78; TEMP 98.7; O2SAT 91
== END 2025-04-11 17:09 | disposition home or self-care (01) ==
LOC: M ED 13:43 → EDBD 13:43 → M ED INP 18:48 → M MSPAV 23:19
PROVIDERS: ADMIT Student in an Organized Health Care Education/Training Program; ATTEND Student in an Organized Health Care Education/Training Program
DX: J96.21 Acute and chronic respiratory failure with hypoxia (principal); J84.9 Interstitial pulmonary disease, unspecified; Z99.81 Dependence on supplemental oxygen; Z86.718 Personal history of other venous thrombosis and embolism; E03.9 Hypothyroidism, unspecified; I10 Essential (primary) hypertension; G47.33 Obstructive sleep apnea (adult) (pediatric); Z66 Do not resuscitate; F32.A Depression, unspecified; E87.6 Hypokalemia; G25.81 Restless legs syndrome; Z98.41 Cataract extraction status, right eye; Z98.42 Cataract extraction status, left eye; B34.8 Other viral infections of unspecified site; R13.10 Dysphagia, unspecified; K22.9 Disease of esophagus, unspecified; E86.0 Dehydration; Z79.51 Long term (current) use of inhaled steroids; Z79.82 Long term (current) use of aspirin; Z79.2 Long term (current) use of antibiotics; Z79.890 Hormone replacement therapy; Z79.52 Long term (current) use of systemic steroids; Z79.899 Other long term (current) drug therapy
CPT/HCPCS: 36415; 36600; 71045; 71275; 80048; 80069; 80076; 81001; 82550; 82553; 82803; 83605; 83735; 83880; 84145; 84484; 85025; 85027; 87040; 87486; 87581; 87633; 87798; 92526; 92610; 93005; 93041; 94640; 94667; 94668; 94760; 96361; 96365; 96366; 96367; 96372; 96375; 96376; 97161; 97165; 97530; 99285; G0378; J2543; J3373; J7512; Q9967